=== PATIENT | male | born 1940 | race African-American/Black ===

== ENCOUNTER 2018-06-04 13:43 | Inpatient (IN) | payer MEDICARE, MEDICAID ==
[~2018-06-04] VITALS: Ht 180.3 cm; Wt 64.9 kg
[2018-06-04 13:33] VITALS: BP 149/88
[2018-06-04 15:00] VITALS: BP 134/87
[2018-06-04 15:20] LABS: APPEARANCE,URINE SLIGHTLY CLOUDY; BILIRUBIN, URINE NEGATIVE (NEGATIVE); COLOR,URINE PALE YELLOW; GLUCOSE, URINE (UA) 1+ (NEGATIVE); KETONES,URINE 4+ (NEGATIVE); LEUKOCYTE ESTERASE ,URINE NEGATIVE (NEGATIVE); NITRITE,URINE NEGATIVE (NEGATIVE); PH,URINE 7 (4.5-8.0); PROTEIN,URINE 3+ (NEGATIVE); UROBILINOGEN,URINE NORMAL MG/DL (0.0-1.0)
[2018-06-04 15:28] LABS: HEMATOCRIT 44.1 % (42.0-52.0); MEAN CORPUSCULAR VOLUME 83 FL (80-99); PLATELET COUNT 331 K/UL (150-450); RED BLOOD COUNT 5.34 M/UL (4.70-6.10); RED CELL DISTRIBUTION WIDTH 20.9 % (11.6-14.8); WHITE BLOOD COUNT 14.4 K/UL (4.8-10.8)
[2018-06-04 15:29] LABS: ANION GAP 14 mmol/L (5-15); BLOOD UREA NITROGEN 16 mg/dL (7-18); CALCIUM 11.3 MG/DL (8.5-10.1); CARBON DIOXIDE 23 MMOL/L (21-32); CHLORIDE 98 MMOL/L (98-107); CREATININE 0.8 MG/DL (0.55-1.30); POTASSIUM 3.4 MMOL/L (3.5-5.1); SODIUM 135 MMOL/L (136-145)
[2018-06-04 15:58] LABS: ALANINE AMINOTRANSFERASE 19 U/L (12-78); ALBUMIN 2.5 G/DL (3.4-5.0); ALBUMIN/GLOBULIN RATIO 0.5 (1.0-2.7); ALKALINE PHOSPHATASE 118 U/L (46-116); ASPARTATE AMINO TRANSFERASE 20 U/L (15-37); BILIRUBIN,TOTAL 0.8 MG/DL (0.2-1.0); CKMB 1.3 NG/ML (0.0-3.6); CREATINE KINASE 49 U/L (26-308)
[2018-06-04] MEDS ORDERED: Piperacillin/Tazobactam 3.375 GM in NS 110 ML IVPB ONE (16:00)
--- NOTE | 2018-06-04 16:02 | Diagnostic Imaging Report ---
EXAM: XR Chest, 1 View CLINICAL HISTORY: CP TECHNIQUE: Frontal view of the chest. COMPARISON: No relevant prior studies available. FINDINGS: Lungs: Hyperinflated lungs, COPD. Large 10.2 cm left upper central round mass with 7 cm more dense opacity superior aspect of this mass. Pleural space: Unremarkable. No pneumothorax. Heart: Unremarkable. No cardiomegaly. Mediastinum: Unremarkable. Bones/joints: Unremarkable. Tubes, lines and devices: Right chest port. Upper abdomen: Elevated left hemidiaphragm. IMPRESSION: 1. Large 10.2 cm left upper central round mass with 7 cm more dense opacity superior aspect of this mass. Consider CT if not already worked up. 2. Elevated left hemidiaphragm. 3. Hyperinflated lungs, COPD.
[2018-06-04] MEDS ORDERED: UNOBMED (16:34)
--- NOTE | 2018-06-04 16:43 | Emergency Room Report ---
History of Present Illness General Chief Complaint: Generalized Weakness Source: Patient, EMS Present Illness HPI 77-year-old male presents ED for evaluation. Brought in by EMS from home. Complaining of feeling weak, full episodes of diarrhea. Notes watery loose stools for many days now. Denies abdominal pain. Denies fevers or chills. States he has history of lung cancer and is getting treatment at [facility]. States his family member called 911 today. Denies recent antibiotic use. Denies chest pain or shortness of breath. No other aggravating relieving factors. Denies any other associated symptoms Allergies: Coded Allergies: No Known Allergies (Unverified , 06/04/18) Patient History Past Medical History: other - lung cancer Past Surgical History: none Pertinent Family History: none Social History: Denies: smoking, alcohol use, drug use Immunizations: UTD Reviewed Nursing Documentation: PMH: Agreed; PSxH: Agreed Nursing Documentation-PMH Past Medical History: No History, Except For Hx Hypertension: Yes Hx Diabetes: Yes Hx Cancer: Yes - Lung CA Review of Systems All Other Systems: negative except mentioned in HPI Physical Exam Vital Signs Date Time Temp Pulse Resp B/P (MAP) Pulse Ox O2 Delivery O2 Flow Rate FiO2 06/04/18 13:33 97.5 129 20 149/88 Room Air 97.5 06/04/18 13:34 99 Sp02 EP Interpretation: reviewed, normal General Appearance: alert, GCS 15, cachetic Head: normocephalic, atraumatic Eyes: bilateral eye normal inspection, bilateral eye PERRL ENT: hearing grossly normal, normal pharynx, no angioedema, normal voice Neck: full range of motion, supple/symm/no masses Respiratory: chest non-tender, lungs clear, normal breath sounds, speaking full sentences Cardiovascular #1: no edema, tachycardia Cardiovascular #2: 2+ carotid (R), 2+ carotid (L), 2+ radial (R), 2+ radial (L) , 2+ dorsalis pedis (R), 2+ dorsalis pedis (L) Gastrointestinal: normal bowel sounds, non tender, soft, non-distended, no guarding, no rebound Rectal: deferred Genitourinary: normal inspection, no CVA tenderness Musculoskeletal: back normal, gait/station normal, normal range of motion, non- tender Neurologic: alert, oriented x3, responsive, motor strength/tone normal, sensory intact, speech normal Psychiatric: judgement/insight normal, memory normal, mood/affect normal, no suicidal/homicidal ideation Reflexes: 3+ bicep (R), 3+ bicep (L), 3+ tricep (R), 3+ tricep (L), 3+ knee (R) , 3+ knee (L) Skin: normal color, no rash, warm/dry, well hydrated Lymphatic: no adenopathy Medical Decision Making Diagnostic Impression: Primary Impression: Episode of generalized weakness Additional Impressions: Colitis UTI (urinary tract infection) Qualified Codes: N39.0 - Urinary tract infection, site not specified H/O: lung cancer ER Course Hospital Course 77 yo M presents with weakness, vomiting and diarrhea Clinical course differential - dehydration, colitis, sepsis After initial history and physical I ordered labs, IV fluids, EKG, chest x-ray Labs - leukocytosis noted, Hb/Hct stable. electrolytes ok. lactate 2, UA + bacteria CXR - L upper lung mass (already diagnosed with lung cancer) EKGsinus tachycardia, no acute ischemic changes interpreted by me Tachycardia slowly improving with IV hydration. Antibiotics given. Case discussed with Dr. Cardona and he agreed to accept the patient to his service for further care and support I feel this is a highly complex case requiring extensive working including EKG/ Rhythm strip, Xray/CT/US, Blood/urine lab work, repeat exams while in ED, and administration of strong opiates/narcotics for pain control, admission to hospital or close patient follow up. Diagnosis - episode of generalized weakness, colitis, UTI, h/o lung cancer Patient admitted to telemetry in serious condition Labs Test 06/04/18 14:30 White Blood Count 14.4 K/UL (4.8-10.8) Red Blood Count 5.34 M/UL (4.70-6.10) Hemoglobin 13.0 G/DL (14.2-18.0) Hematocrit 44.1 % (42.0-52.0) Mean Corpuscular Volume 83 FL (80-99) Mean Corpuscular Hemoglobin 24.4 PG (27.0-31.0) Mean Corpuscular Hemoglobin Concent 29.5 G/DL (32.0-36.0) Red Cell Distribution Width 20.9 % (11.6-14.8) Platelet Count 331 K/UL (150-450) Mean Platelet Volume 5.3 FL (6.5-10.1) Neutrophils (%) (Auto) % (45.0-75.0) Lymphocytes (%) (Auto) % (20.0-45.0) Monocytes (%) (Auto) % (1.0-10.0) Eosinophils (%) (Auto) % (0.0-3.0) Basophils (%) (Auto) % (0.0-2.0) Differential Total Cells Counted 100 Neutrophils % (Manual) 84 % (45-75) Lymphocytes % (Manual) 9 % (20-45) Monocytes % (Manual) 7 % (1-10) Eosinophils % (Manual) 0 % (0-3) Basophils % (Manual) 0 % (0-2) Band Neutrophils 0 % (0-8) Platelet Estimate Adequate Platelet Morphology Normal Red Blood Cell Morphology Normal Urine Color Pale yellow Urine Appearance Slightly cloudy Urine pH 7 (4.5-8.0) Urine Specific [place] 1.015 (1.005-1.035) Urine Protein 3+ (NEGATIVE) Urine Glucose (UA) 1+ (NEGATIVE) Urine Ketones 4+ (NEGATIVE) Urine Blood 4+ (NEGATIVE) Urine Nitrite Negative (NEGATIVE) Urine Bilirubin Negative (NEGATIVE) Urine Urobilinogen Normal MG/DL (0.0-1.0) Urine Leukocyte Esterase Negative (NEGATIVE) Urine RBC 10-15 /HPF (0 - 0) Urine WBC 2-4 /HPF (0 - 0) Urine Squamous Epithelial Cells Few /LPF (NONE/OCC) Urine Bacteria Many /HPF (NONE) Sodium Level 135 MMOL/L (136-145) Potassium Level 3.4 MMOL/L (3.5-5.1) Chloride Level 98 MMOL/L (98-107) Carbon Dioxide Level 23 MMOL/L (21-32) Anion Gap 14 mmol/L (5-15) Blood Urea Nitrogen 16 mg/dL (7-18) Creatinine 0.8 MG/DL (0.55-1.30) Estimat Glomerular Filtration Rate mL/min (>60) Glucose Level 119 MG/DL (74-106) Lactic Acid Level 2.00 mmol/L (0.4-2.0) Calcium Level 11.3 MG/DL (8.5-10.1) Total Bilirubin 0.8 MG/DL (0.2-1.0) Aspartate Amino Transf (AST/SGOT) 20 U/L (15-37) Alanine Aminotransferase (ALT/SGPT) 19 U/L (12-78) Alkaline Phosphatase 118 U/L (46-116) Total Creatine Kinase 49 U/L (26-308) Creatine Kinase MB 1.3 NG/ML (0.0-3.6) Creatine Kinase MB Relative Index 2.6 Troponin I 0.000 ng/mL (0.000-0.056) Pro-B-Type Natriuretic Peptide 692 pg/mL (0-125) Total Protein 7.5 G/DL (6.4-8.2) Albumin 2.5 G/DL (3.4-5.0) Globulin 5.0 g/dL Albumin/Globulin Ratio 0.5 (1.0-2.7) Lipase 108 U/L (73-393) EKG Diagnostic Results Rate: tachycardiac Rhythm: NSR ST Segments: no acute changes ASA given to the pt in ED: No Rhythm Strip Diag. Results EP Interpretation: yes Rhythm: NSR, no PVC's, no ectopy Chest X-Ray Diagnostic Results Chest X-Ray Diagnostic Results : Chest X-Ray Ordered: Yes # of Views/Limited/Complete: 1 View Indication: Other - weakness EP Interpretation: Yes Interpretation: no pneumothorax, other - large left upper lung mass Impression: Other - lung cancer Electronically Signed by: Electronically signed by Bello Brothers MD Last Vital Signs Date Time Temp Pulse Resp B/P (MAP) Pulse Ox O2 Delivery O2 Flow Rate FiO2 06/04/18 13:34 97.3 129 20 127/77 99 Room Air 97.3 Status: improved Disposition: ADMITTED INPATIENT Condition: Serious Referrals: NOT CHOSEN IPA/,REFERRING (PCP) Bello Brothers MD Jun 04, 2018 16:43
[2018-06-04] MEDS ORDERED: D5W w/KCl 20mEq 1,000 ML IV SCH (17:00)
[2018-06-04] MEDS ORDERED: Zolpidem 5mg tab ORAL PRN (17:00)
[2018-06-04] MEDS: Morphine Sulfate 2mg/ml Inj IVP PRN ×2 (18:11→22:06)
--- NOTE | 2018-06-04 18:23 | History & Physical ---
History and Physical History & Physicial HP dictated # [id number] Ronen Cardona MD Jun 04, 2018 18:23
[2018-06-04] MEDS: D5 1/2NS w/KCl 20mEq 1,000 ML IV SCH (18:55)
--- NOTE | 2018-06-04 19:15 | History and Physical Report ---
DATE OF ADMISSION: 06/04/2018 CHIEF COMPLAINT: Feeling weak and episodes of diarrhea. HISTORY OF PRESENT ILLNESS: This is a 77-year-old male. Apparently, he was diagnosed with lung cancer about 5 years ago. The patient states that he is still getting chemotherapy. He states that his last chemotherapy was on Wednesday in the office of the doctor he does not know the name. The patient started having some diarrhea and then today he was feeling very weak and the family member called 911. The patient was brought into the emergency room and was admitted. PAST MEDICAL HISTORY: History of lung cancer as mentioned. He has reported history of diabetes and hypertension. MEDICATIONS: Reviewed in the EMR. SOCIAL HISTORY: The patient stated that he has not been smoking for the past 5 years. He denies history of alcohol abuse. He lives at home. ALLERGIES: No known drug allergies. REVIEW OF SYSTEMS: Noncontributory except above. PHYSICAL EXAMINATION: GENERAL: The patient is an elderly male, in no acute distress. Looks cachectic. VITAL SIGNS: Blood pressure 149/88, pulse 129, respiratory rate 20, and temperature 97.5. HEENT: Pale conjunctivae. Anicteric sclerae. NECK: Supple. LUNGS: Clear to auscultation. HEART: S1 and S2 without murmurs or rubs. ABDOMEN: Soft. Somewhat tender in the epigastric area. EXTREMITIES: No cyanosis or edema. LABORATORY FINDINGS: The CBC shows a WBC of 14,400, hematocrit is 44.1, hemoglobin is 13, and platelets 231,000. The chemistry panel shows serum sodium 135, potassium 3.4, chloride 98, CO2 23, BUN 16, creatinine 0.8, blood sugar is 119, and calcium is 11.3. UA shows 10 to 15 RBCs per high-power field, many bacteria, 2+ protein. ASSESSMENT: This is a 77-year-old male, who was admitted with weakness. He has significant hypercalcemia, which is likely related to his malignancy. He has also some diarrhea, which may be infectious, which could be related to his chemotherapy treatment. He does have leukocytosis. His UA is not impressive for urinary tract infection; however, the patient may have underlying pneumonia as well. PLAN: The patient will be on antibiotics, IV fluids. Serum calcium will be followed closely and if it does not go up with IV fluid, then I would give him a dose of pamidronate. GI consultation was obtained. The patient will be on liquid diet for now. His tachycardia is likely related to volume depletion and will be followed closely. Ronen Cardona M.D. DR: KARO JOB#: [id number] CC:
[2018-06-04 20:00] VITALS: BP 140/84
[2018-06-04] MEDS: metroNIDAZOLE 500mg tab ORAL SCH (22:01)
[2018-06-04] MEDS: Heparin 5000 units/ml inj SUBQ SCH (22:03)
[2018-06-05] VITALS: BP 137/80
[2018-06-05] MEDS: Morphine Sulfate 2mg/ml Inj IVP PRN ×4 (01:07→20:14)
[2018-06-05] MEDS: D5 1/2NS w/KCl 20mEq 1,000 ML IV SCH ×3 (02:49→23:19)
[2018-06-05 04:00] VITALS: BP 145/88
[2018-06-05] MEDS: metroNIDAZOLE 500mg tab ORAL SCH ×3 (05:36→21:09)
[2018-06-05] MEDS: Heparin 5000 units/ml inj SUBQ SCH ×2 (07:46→20:13)
[2018-06-05 08:00] VITALS: BP 143/99
[2018-06-05 12:00] VITALS: BP 144/84
--- NOTE | 2018-06-05 12:06 | General Progress Note ---
Assessment/Plan Problem List: (1) Episode of generalized weakness ICD Codes: R53.1 - Weakness SNOMED: 62032747 (2) Colitis ICD Codes: K52.9 - Noninfective gastroenteritis and colitis, unspecified SNOMED: 69205857 (3) Bacteremia ICD Codes: R78.81 - Bacteremia SNOMED: 1100572 (4) Hypercalcemia ICD Codes: E83.52 - Hypercalcemia SNOMED: 27718303 Assessment/Plan IVF follow labs Abxs ID consult Subjective Allergies: Coded Allergies: No Known Allergies (Unverified , 06/04/18) Subjective C/O abd pain Objective Last 24 Hour Vital Signs Date Time Temp Pulse Resp B/P (MAP) Pulse Ox O2 Delivery O2 Flow Rate FiO2 06/05/18 11:34 97.6 06/05/18 09:19 Room Air 06/05/18 08:00 97.6 126 20 143/99 (114) 100 97.6 06/05/18 08:00 116 06/05/18 04:00 121 06/05/18 04:00 98.3 126 20 145/88 (107) 100 98.3 06/05/18 00:00 108 06/05/18 00:00 97.3 118 22 137/80 (99) 100 97.3 06/04/18 21:00 Room Air 06/04/18 20:00 125 06/04/18 20:00 98.2 125 18 140/84 (102) 100 98.2 06/04/18 18:41 97.3 06/04/18 18:11 97.3 06/04/18 17:34 Room Air 06/04/18 16:50 97.3 120 20 134/87 99 Room Air 97.3 06/04/18 15:00 97.3 120 20 134/87 99 Room Air 97.3 06/04/18 13:34 97.3 129 20 127/77 99 Room Air 97.3 06/04/18 13:33 97.5 129 20 149/88 Room Air 97.5 Intake and Output 06/04/18 06/05/18 19:00 07:00 Intake Total 8 ml 1100 ml Output Total 202 ml Balance 8 ml 898 ml Intake Oral 0 ml 200 ml IV Total 8 ml 900 ml Output Urine Total 200 ml Stool Total 2 ml Laboratory Tests 06/04/18 14:30: White Blood Count 14.4H, Red Blood Count 5.34, Hemoglobin 13.0L, Hematocrit 44.1 , Mean Corpuscular Volume 83, Mean Corpuscular Hemoglobin 24.4L, Mean Corpuscular Hemoglobin Concent 29.5L, Red Cell Distribution Width 20.9H, Platelet Count 331, Mean Platelet Volume 5.3L, Neutrophils (%) (Auto) , Lymphocytes (%) (Auto) , Monocytes (%) (Auto) , Eosinophils (%) (Auto) , Basophils (%) (Auto) , Differential Total Cells Counted 100, Neutrophils % ( Manual) 84H, Lymphocytes % (Manual) 9L, Monocytes % (Manual) 7, Eosinophils % ( Manual) 0, Basophils % (Manual) 0, Band Neutrophils 0, Platelet Estimate Adequate, Platelet Morphology Normal, Red Blood Cell Morphology Normal, Urine Color Pale yellow, Urine Appearance Slightly cloudy, Urine pH 7, Urine Specific [place] 1.015, Urine Protein 3+H, Urine Glucose (UA) 1+H, Urine Ketones 4+H, Urine Blood 4+H, Urine Nitrite Negative, Urine Bilirubin Negative, Urine Urobilinogen Normal, Urine Leukocyte Esterase Negative, Urine RBC 10-15H, Urine WBC 2-4, Urine Squamous Epithelial Cells Few, Urine Bacteria ManyH, Sodium Level 135L, Potassium Level 3.4L, Chloride Level 98, Carbon Dioxide Level 23, Anion Gap 14, Blood Urea Nitrogen 16, Creatinine 0.8, Estimat Glomerular Filtration Rate , Glucose Level 119H, Lactic Acid Level 2.00, Calcium Level 11.3H, Total Bilirubin 0.8, Aspartate Amino Transf (AST/SGOT) 20, Alanine Aminotransferase (ALT/SGPT) 19, Alkaline Phosphatase 118H, Total Creatine Kinase 49, Creatine Kinase MB 1.3, Creatine Kinase MB Relative Index 2.6, Troponin I 0.000, Pro-B-Type Natriuretic Peptide 692H, Total Protein 7.5, Albumin 2.5L, Globulin 5.0, Albumin/Globulin Ratio 0.5L, Lipase 108 06/04/18 16:30: Lactic Acid Level 1.70 Height (Feet): 6 Height (Inches): 0.00 Weight (Pounds): 130 Cardiovascular: normal rate Respiratory/Chest: lungs clear Abdomen: soft, tender Edema: no edema noted Ronen Collazo MD Jun 05, 2018 12:06
[2018-06-05] MEDS ORDERED: Vancomycin 1.5 GM/D5W 250ML IVPB ONE (13:00)
--- NOTE | 2018-06-05 13:14 | General Progress Note ---
Assessment/Plan Assessment/Plan Assessment - Diarrhea - dehydration - h/o lung CA, on chemo Recommendations - IVF - push PO - check C Diff - Check stool culture Thank you Alexis Baum MD Subjective Allergies: Coded Allergies: No Known Allergies (Unverified , 06/04/18) Objective Last 24 Hour Vital Signs Date Time Temp Pulse Resp B/P (MAP) Pulse Ox O2 Delivery O2 Flow Rate FiO2 06/05/18 12:04 97.6 06/05/18 12:00 97.3 98 19 144/84 (104) 100 97.3 06/05/18 11:34 97.6 06/05/18 09:19 Room Air 06/05/18 08:00 97.6 126 20 143/99 (114) 100 97.6 06/05/18 08:00 116 06/05/18 04:00 121 06/05/18 04:00 98.3 126 20 145/88 (107) 100 98.3 06/05/18 00:00 108 06/05/18 00:00 97.3 118 22 137/80 (99) 100 97.3 06/04/18 21:00 Room Air 06/04/18 20:00 125 06/04/18 20:00 98.2 125 18 140/84 (102) 100 98.2 06/04/18 18:11 97.3 06/04/18 17:34 Room Air 06/04/18 16:50 97.3 120 20 134/87 99 Room Air 97.3 06/04/18 15:00 97.3 120 20 134/87 99 Room Air 97.3 06/04/18 13:34 97.3 129 20 127/77 99 Room Air 97.3 06/04/18 13:33 97.5 129 20 149/88 Room Air 97.5 Intake and Output 06/04/18 06/05/18 19:00 07:00 Intake Total 8 ml 1100 ml Output Total 202 ml Balance 8 ml 898 ml Intake Oral 0 ml 200 ml IV Total 8 ml 900 ml Output Urine Total 200 ml Stool Total 2 ml Laboratory Tests 06/04/18 14:30: White Blood Count 14.4H, Red Blood Count 5.34, Hemoglobin 13.0L, Hematocrit 44.1 , Mean Corpuscular Volume 83, Mean Corpuscular Hemoglobin 24.4L, Mean Corpuscular Hemoglobin Concent 29.5L, Red Cell Distribution Width 20.9H, Platelet Count 331, Mean Platelet Volume 5.3L, Neutrophils (%) (Auto) , Lymphocytes (%) (Auto) , Monocytes (%) (Auto) , Eosinophils (%) (Auto) , Basophils (%) (Auto) , Differential Total Cells Counted 100, Neutrophils % ( Manual) 84H, Lymphocytes % (Manual) 9L, Monocytes % (Manual) 7, Eosinophils % ( Manual) 0, Basophils % (Manual) 0, Band Neutrophils 0, Platelet Estimate Adequate, Platelet Morphology Normal, Red Blood Cell Morphology Normal, Urine Color Pale yellow, Urine Appearance Slightly cloudy, Urine pH 7, Urine Specific [place] 1.015, Urine Protein 3+H, Urine Glucose (UA) 1+H, Urine Ketones 4+H, Urine Blood 4+H, Urine Nitrite Negative, Urine Bilirubin Negative, Urine Urobilinogen Normal, Urine Leukocyte Esterase Negative, Urine RBC 10-15H, Urine WBC 2-4, Urine Squamous Epithelial Cells Few, Urine Bacteria ManyH, Sodium Level 135L, Potassium Level 3.4L, Chloride Level 98, Carbon Dioxide Level 23, Anion Gap 14, Blood Urea Nitrogen 16, Creatinine 0.8, Estimat Glomerular Filtration Rate , Glucose Level 119H, Lactic Acid Level 2.00, Calcium Level 11.3H, Total Bilirubin 0.8, Aspartate Amino Transf (AST/SGOT) 20, Alanine Aminotransferase (ALT/SGPT) 19, Alkaline Phosphatase 118H, Total Creatine Kinase 49, Creatine Kinase MB 1.3, Creatine Kinase MB Relative Index 2.6, Troponin I 0.000, Pro-B-Type Natriuretic Peptide 692H, Total Protein 7.5, Albumin 2.5L, Globulin 5.0, Albumin/Globulin Ratio 0.5L, Lipase 108 06/04/18 16:30: Lactic Acid Level 1.70 Height (Feet): 6 Height (Inches): 0.00 Weight (Pounds): 130 Suellen Baum MD Jun 05, 2018 13:14
[2018-06-05 16:00] VITALS: BP 139/79
[2018-06-05 20:00] VITALS: BP 127/84
--- NOTE | 2018-06-05 20:30 | Consultation ---
DATE OF CONSULTATION: 06/05/2018 INFECTIOUS DISEASE CONSULTATION CONSULTING PHYSICIAN: Doug Cardona M.D. PRIMARY ATTENDING PHYSICIAN: Ronen Cardona M.D. REASON FOR CONSULT: Positive blood culture, bacteremia. HISTORY OF PRESENT ILLNESS: This is a 77-year-old male admitted yesterday from home. He has history of 4 days of watery diarrhea, usually 5 times a day and weakness. He has history of lung cancer, on chemotherapy and has a port. He has some abdominal pain. PAST MEDICAL HISTORY: Significant for lung cancer for 5 years , and chemotherapy, last chemotherapy was last week. He has COPD. MEDICATIONS: Getting metronidazole, heparin, ciprofloxacin, morphine, Zofran, Ambien. SOCIAL HISTORY: Single, has no child. Lives with first cousin. Quit smoking 3 years ago. No drinking for 4 years. REVIEW OF SYSTEMS: No fever. No chills. Some nausea. No coughing. He has diarrhea as mentioned. No problem passing urine. PHYSICAL EXAMINATION: VITAL SIGNS: Temperature 97.6, pulse 126, blood pressure 143/99. GENERAL APPEARANCE: He seems to be thin and cachectic. HEAD AND NECK: No oral lesion. He has no teeth. HEART: S1 and S2. Regular. LUNGS: Clear. ABDOMEN: Soft. Mildly tender in the left side. EXTREMITIES: He has no edema. He has muscle atrophy. NEUROLOGIC: He is awake, alert, oriented. He has decreased hearing. LABORATORY AND DIAGNOSTIC DATA: WBC 14.4, hemoglobin 13, hematocrit 44.1, platelet 331,000. Sodium 135, potassium 3.4, chloride 98, bicarbonate 23, BUN 16, creatinine 0.8, and glucose is 119. IMPRESSION: Sepsis with leukocytosis and tachycardia. He has diarrhea. We will try to rule out infectious cause of diarrhea like C. difficile. The patient is immunocompromised and has bacteremia with gram-positive cocci. He has COPD in chest x-ray and lung mass in chest x-ray. He has Port-A-Cath and is in risk of line infection. RECOMMENDATION: We will continue Cipro and Flagyl. We will start on IV vancomycin. We will follow up the cultures. At the end of my exam, I thank Dr. Ronen Cardona for involving me in the care of this patient. Doug Cardona M.D. DR: Heath JOB#: [id number] CC: CRISTOFER
[2018-06-06] VITALS: BP 149/85
[2018-06-06] MEDS: Vancomycin 750mg/NS 250ml IVPB SCH ×3 (00:26→12:24)
--- NOTE | 2018-06-06 02:30 | Consultation ---
DATE OF CONSULTATION: 06/05/2018 GASTROENTEROLOGY CONSULTATION CONSULTING PHYSICIAN: Suellen Baum M.D. CHIEF COMPLAINT: I was asked to see this patient by Dr. Ronen Cardona for evaluation of diarrhea. HISTORY OF PRESENT ILLNESS: The patient is a pleasant 77-year-old man, who is a poor historian, who comes into the hospital due to three days of diarrhea. The patient states that he had a few bowel movements a day, which are loose. There is no pain or nausea or vomiting. He does have a history of lung cancer about four or five years ago and has been receiving chemotherapy. His last chemotherapy was earlier this week, but he cannot recall the details of his treatment. He came to the hospital because of diarrhea and weakness. He has not had a colonoscopy for at least five years. PAST MEDICAL HISTORY: History of lung cancer, diabetes, and hypertension. FAMILY HISTORY: Noncontributory. SOCIAL HISTORY: The patient has not smoked for about five years. He denies alcohol use. He lives at home. ALLERGIES: None. REVIEW OF SYSTEMS: Otherwise negative. PHYSICAL EXAMINATION: GENERAL: A pleasant man, seen in his room. HEENT: Normocephalic and atraumatic. Sclerae are anicteric. Oropharynx is clear. NECK: Supple. Clear to auscultation. CARDIOVASCULAR: Revealed a regular rate. ABDOMEN: Soft. EXTREMITIES: Revealed no edema. LABORATORY DATA: Laboratory data was noted. ASSESSMENT: This patient presents with flare of diarrhea for several days of unclear etiology. Since he is receiving chemotherapy, this would be a typical cause of this chemotherapy-induced diarrhea. Alternatively, he may have clostridium difficile or typical infections and other pathogens. I would check the patient's stool occult first while giving him hydration and nutrition. Should his symptoms persist and the cultures are negative, then he may require an endoscopic evaluation. RECOMMENDATIONS: Per above discussion and per orders written in the chart. Thank you for asking me to participate in the care of this patient. Suellen Baum M.D. DR: STELLA JOB#: [id number] CC: CRISTOFER
[2018-06-06 04:00] VITALS: BP 144/85
[2018-06-06] MEDS: metroNIDAZOLE 500mg tab ORAL SCH ×3 (05:51→21:21)
[2018-06-06 07:38] LABS: HEMATOCRIT 35.3 % (42.0-52.0); HEMOGLOBIN 11.3 G/DL (14.2-18.0); MEAN CORPUSCULAR VOLUME 81 FL (80-99); PLATELET COUNT 295 K/UL (150-450); RED BLOOD COUNT 4.36 M/UL (4.70-6.10); RED CELL DISTRIBUTION WIDTH 20.4 % (11.6-14.8); WHITE BLOOD COUNT 9.5 K/UL (4.8-10.8)
[2018-06-06 08:00] VITALS: BP 143/84
[2018-06-06 08:02] LABS: ANION GAP 8 mmol/L (5-15); BLOOD UREA NITROGEN 6 mg/dL (7-18); CALCIUM 10.1 MG/DL (8.5-10.1); CARBON DIOXIDE 28 MMOL/L (21-32); CHLORIDE 98 MMOL/L (98-107); CREATININE 0.6 MG/DL (0.55-1.30); SODIUM 134 MMOL/L (136-145)
[2018-06-06 08:09] LABS: POTASSIUM 2.4 MMOL/L (3.5-5.1)
[2018-06-06] MEDS: D5 1/2NS w/KCl 20mEq 1,000 ML IV SCH (08:17)
[2018-06-06] MEDS: Heparin 5000 units/ml inj SUBQ SCH ×3 (08:17→21:23)
[2018-06-06 12:00] VITALS: BP 146/91
--- NOTE | 2018-06-06 12:02 | General Progress Note ---
Assessment/Plan Problem List: (1) Episode of generalized weakness ICD Codes: R53.1 - Weakness SNOMED: 75164129 (2) Colitis ICD Codes: K52.9 - Noninfective gastroenteritis and colitis, unspecified SNOMED: 95219042 (3) Bacteremia ICD Codes: R78.81 - Bacteremia SNOMED: 4604155 (4) Hypercalcemia ICD Codes: E83.52 - Hypercalcemia SNOMED: 33064297 (5) Hypokalemia ICD Codes: E87.6 - Hypokalemia SNOMED: 99288003 Assessment/Plan Replete K IVF with K GI F/U follow labs Abxs Discussed with RN Subjective Allergies: Coded Allergies: No Known Allergies (Unverified , 06/04/18) Subjective C/O abd pain severe diarrhea Objective Last 24 Hour Vital Signs Date Time Temp Pulse Resp B/P (MAP) Pulse Ox O2 Delivery O2 Flow Rate FiO2 06/06/18 09:00 Room Air 06/06/18 08:00 98.9 108 20 143/84 (103) 96 98.9 06/06/18 04:00 98.0 111 18 144/85 (104) 96 98.0 06/06/18 04:00 107 06/06/18 00:00 107 06/06/18 00:00 97.9 108 18 149/85 (106) 98 97.9 06/05/18 20:00 112 06/05/18 20:00 98.7 118 20 127/84 (98) 98 98.7 06/05/18 19:51 Room Air 06/05/18 16:00 106 06/05/18 16:00 99.0 121 18 139/79 (99) 100 99.0 06/05/18 12:04 97.6 Intake and Output 06/05/18 06/06/18 19:00 07:00 Intake Total 820 ml 1460.000 ml Output Total 700 ml 900 ml Balance 120 ml 560.000 ml Intake Oral 720 ml 240 ml IV Total 100 ml 1220.000 ml Output Urine Total 700 ml 900 ml # Bowel Movements 3 2 Laboratory Tests 06/06/18 06:10: White Blood Count 9.5, Red Blood Count 4.36L, Hemoglobin 11.3L, Hematocrit 35.3L , Mean Corpuscular Volume 81, Mean Corpuscular Hemoglobin 25.8L, Mean Corpuscular Hemoglobin Concent 31.9L, Red Cell Distribution Width 20.4H, Platelet Count 295, Mean Platelet Volume 5.1L, Neutrophils (%) (Auto) , Lymphocytes (%) (Auto) , Monocytes (%) (Auto) , Eosinophils (%) (Auto) , Basophils (%) (Auto) , Differential Total Cells Counted 100, Neutrophils % ( Manual) 85H, Lymphocytes % (Manual) 8L, Monocytes % (Manual) 7, Eosinophils % ( Manual) 0, Basophils % (Manual) 0, Band Neutrophils 0, Platelet Estimate Adequate, Platelet Morphology Normal, Hypochromasia 1+, Anisocytosis 2+, Microcytosis 1+, Sodium Level 134L, Potassium Level 2.4*L, Chloride Level 98, Carbon Dioxide Level 28, Anion Gap 8, Blood Urea Nitrogen 6L, Creatinine 0.6, Estimat Glomerular Filtration Rate , Glucose Level 123H, Calcium Level 10.1 Height (Feet): 6 Height (Inches): 0.00 Weight (Pounds): 130 Cardiovascular: normal rate Respiratory/Chest: lungs clear Abdomen: tender Edema: no edema noted Generalized Ronen Cardona MD Jun 06, 2018 12:02
[2018-06-06] MEDS: D5 1/2NS w/KCl 40meq 1000ml 1,000 ML IV SCH ×2 (14:14→23:00)
[2018-06-06 16:18] VITALS: BP 130/78
--- NOTE | 2018-06-06 16:47 | Infectious Diseases Prog Note ---
Assessment/Plan Assessment/Plan A; Sepsis/SIRS Diarrhea Lung cancer Positive blood culture like contamination Cachexia Hypokalemia P; Continue Cipro & Flagyl Discontinue IV Vancomycin will f/u cultures Subjective ROS Limited/Unobtainable: Yes Constitutional: Reports: no symptoms Gastrointestinal/Abdominal: Reports: diarrhea Allergies: Coded Allergies: No Known Allergies (Unverified , 06/04/18) Objective Vital Signs Last 24 Hour Vital Signs Date Time Temp Pulse Resp B/P (MAP) Pulse Ox O2 Delivery O2 Flow Rate FiO2 06/06/18 16:18 98.6 115 20 130/78 (95) 96 98.6 06/06/18 16:00 114 06/06/18 12:00 110 06/06/18 12:00 98.6 108 17 146/91 (109) 96 98.6 06/06/18 09:00 Room Air 06/06/18 08:00 107 06/06/18 08:00 98.9 108 20 143/84 (103) 96 98.9 06/06/18 04:00 98.0 111 18 144/85 (104) 96 98.0 06/06/18 04:00 107 06/06/18 00:00 107 06/06/18 00:00 97.9 108 18 149/85 (106) 98 97.9 06/05/18 20:00 112 06/05/18 20:00 98.7 118 20 127/84 (98) 98 98.7 06/05/18 19:51 Room Air Height (Feet): 6 Height (Inches): 0.00 Weight (Pounds): 130 General Appearance: cachetic HEENT: mucous membranes moist Respiratory/Chest: lungs clear Cardiovascular: tachycardia, other - R chest Port Abdomen: soft, non tender Extremities: no edema Skin: no rash Neurologic/Psychiatric: alert, responsive Microbiology Date/Time Source Procedure Growth Status 06/04/18 14:30 Blood Blood Culture - Preliminary NO GROWTH AFTER 24 HOURS Resulted 06/04/18 14:30 Blood Blood Culture - Preliminary Staphylococcus Sp Coag Neg Resulted 06/04/18 14:15 Stool Stool Culture - Preliminary Resulted 06/04/18 14:15 Stool Clostridium difficile Toxin Assay - Final Resulted 06/04/18 14:30 Urine,Clean Catch Urine Culture - Preliminary Mixed Urogenital Contaminants Resulted Laboratory Tests Test 06/06/18 06:10 06/06/18 16:00 White Blood Count 9.5 K/UL (4.8-10.8) Red Blood Count 4.36 M/UL (4.70-6.10) L Hemoglobin 11.3 G/DL (14.2-18.0) L Hematocrit 35.3 % (42.0-52.0) L Mean Corpuscular Volume 81 FL (80-99) Mean Corpuscular Hemoglobin 25.8 PG (27.0-31.0) L Mean Corpuscular Hemoglobin Concent 31.9 G/DL (32.0-36.0) L Red Cell Distribution Width 20.4 % (11.6-14.8) H Platelet Count 295 K/UL (150-450) Mean Platelet Volume 5.1 FL (6.5-10.1) L Neutrophils (%) (Auto) % (45.0-75.0) Lymphocytes (%) (Auto) % (20.0-45.0) Monocytes (%) (Auto) % (1.0-10.0) Eosinophils (%) (Auto) % (0.0-3.0) Basophils (%) (Auto) % (0.0-2.0) Differential Total Cells Counted 100 Neutrophils % (Manual) 85 % (45-75) H Lymphocytes % (Manual) 8 % (20-45) L Monocytes % (Manual) 7 % (1-10) Eosinophils % (Manual) 0 % (0-3) Basophils % (Manual) 0 % (0-2) Band Neutrophils 0 % (0-8) Platelet Estimate Adequate Platelet Morphology Normal Hypochromasia 1+ Anisocytosis 2+ Microcytosis 1+ Sodium Level 134 MMOL/L (136-145) L Potassium Level 2.4 MMOL/L (3.5-5.1) *L Chloride Level 98 MMOL/L (98-107) Carbon Dioxide Level 28 MMOL/L (21-32) Anion Gap 8 mmol/L (5-15) Blood Urea Nitrogen 6 mg/dL (7-18) L Creatinine 0.6 MG/DL (0.55-1.30) Estimat Glomerular Filtration Rate mL/min (>60) Glucose Level 123 MG/DL (74-106) H Calcium Level 10.1 MG/DL (8.5-10.1) Stool Occult Blood Pending Current Medications Medications (Trade) Dose Ordered Sig/Matthieu Route PRN Reason Start Time Stop Time Status Last Admin Dose Admin Ciprofloxacin (Cipro 250mg tab) 250 mg EVERY 12 HOURS ORAL 06/04/18 21:00 06/11/18 20:59 06/06/18 08:15 Dextrose (Dextrose 50%) 25 ml Q30M PRN IV Hypoglycemia 06/04/18 17:00 07/04/18 16:59 Dextrose (Dextrose 50%) 50 ml Q30M PRN IV Hypoglycemia 06/04/18 17:00 07/04/18 16:59 Dextrose/ Electrolytes 1,000 ml @ 100 mls/hr Q10H IV 06/06/18 13:00 07/04/18 12:59 06/06/18 14:14 Heparin Sodium (Porcine) (Heparin 5000 units/ml) 5,000 units EVERY 12 HOURS SUBQ 06/04/18 21:00 07/04/18 20:59 06/05/18 20:13 Metronidazole (Flagyl) 500 mg Q8HR ORAL 06/04/18 22:00 06/11/18 21:59 06/06/18 14:14 Morphine Sulfate (Morphine Sulfate) 2 mg Q3H PRN IVP For moderate Pain 06/04/18 18:00 06/11/18 17:59 06/05/18 20:14 Ondansetron HCl (Zofran) 4 mg Q6H PRN IVP Nausea & Vomiting 06/04/18 17:00 07/04/18 16:59 06/05/18 01:06 Zolpidem Tartrate (Ambien) 5 mg DAILYPRN PRN ORAL Insomnia 06/04/18 17:00 06/11/18 16:59 Doug Cardona MD Jun 06, 2018 16:47
[2018-06-06 20:00] VITALS: BP 134/80
[2018-06-06] MEDS: Morphine Sulfate 2mg/ml Inj IVP PRN (21:34)
--- NOTE | 2018-06-06 22:28 | General Progress Note ---
Assessment/Plan Assessment/Plan Assessment - Diarrhea - ? chemo induced - dehydration - h/o lung CA, on chemo Recommendations - IVF - push PO - continue cipro and flagyl - Check stool culture - correct electrolytes Subjective Allergies: Coded Allergies: No Known Allergies (Unverified , 06/04/18) Subjective Feels same still with multiple loose BM C Diff (-) no abd pain Objective Last 24 Hour Vital Signs Date Time Temp Pulse Resp B/P (MAP) Pulse Ox O2 Delivery O2 Flow Rate FiO2 06/06/18 20:00 120 06/06/18 16:18 98.6 115 20 130/78 (95) 96 98.6 06/06/18 16:00 114 06/06/18 12:00 110 06/06/18 12:00 98.6 108 17 146/91 (109) 96 98.6 06/06/18 09:00 Room Air 06/06/18 08:00 107 06/06/18 08:00 98.9 108 20 143/84 (103) 96 98.9 06/06/18 04:00 98.0 111 18 144/85 (104) 96 98.0 06/06/18 04:00 107 06/06/18 00:00 107 06/06/18 00:00 97.9 108 18 149/85 (106) 98 97.9 Intake and Output 06/05/18 06/06/18 18:59 06:59 Intake Total 720 ml 1460.000 ml Output Total 700 ml 900 ml Balance 20 ml 560.000 ml Intake Oral 720 ml 240 ml IV Total 1220.000 ml Output Urine Total 700 ml 900 ml # Bowel Movements 3 2 Laboratory Tests 06/06/18 06:10: White Blood Count 9.5, Red Blood Count 4.36L, Hemoglobin 11.3L, Hematocrit 35.3L , Mean Corpuscular Volume 81, Mean Corpuscular Hemoglobin 25.8L, Mean Corpuscular Hemoglobin Concent 31.9L, Red Cell Distribution Width 20.4H, Platelet Count 295, Mean Platelet Volume 5.1L, Neutrophils (%) (Auto) , Lymphocytes (%) (Auto) , Monocytes (%) (Auto) , Eosinophils (%) (Auto) , Basophils (%) (Auto) , Differential Total Cells Counted 100, Neutrophils % ( Manual) 85H, Lymphocytes % (Manual) 8L, Monocytes % (Manual) 7, Eosinophils % ( Manual) 0, Basophils % (Manual) 0, Band Neutrophils 0, Platelet Estimate Adequate, Platelet Morphology Normal, Hypochromasia 1+, Anisocytosis 2+, Microcytosis 1+, Sodium Level 134L, Potassium Level 2.4*L, Chloride Level 98, Carbon Dioxide Level 28, Anion Gap 8, Blood Urea Nitrogen 6L, Creatinine 0.6, Estimat Glomerular Filtration Rate , Glucose Level 123H, Calcium Level 10.1 06/06/18 16:00: Stool Occult Blood [Pending] Height (Feet): 6 Height (Inches): 0.00 Weight (Pounds): 130 Objective Thin AA man NCAT Supple CTA RRR abd soft no edema Suellen Baum MD Jun 06, 2018 22:28
[2018-06-07] VITALS: BP 131/76
[2018-06-07 04:00] VITALS: BP 131/75
[2018-06-07] MEDS: Morphine Sulfate 2mg/ml Inj IVP PRN ×2 (05:59→23:03)
[2018-06-07] MEDS: metroNIDAZOLE 500mg tab ORAL SCH ×3 (06:00→23:02)
[2018-06-07 07:06] LABS: EOSINOPHILS % (AUTO) 0.3 % (0.0-3.0); HEMOGLOBIN 11.7 G/DL (14.2-18.0); LYMPHOCYTES % (AUTO) 9.7 % (20.0-45.0); MEAN CORPUSCULAR VOLUME 81 FL (80-99); MONOCYTES % (AUTO) 7.2 % (1.0-10.0); NEUTROPHILS % (AUTO) 81.7 % (45.0-75.0); PLATELET COUNT 299 K/UL (150-450); RED BLOOD COUNT 4.45 M/UL (4.70-6.10); RED CELL DISTRIBUTION WIDTH 19.8 % (11.6-14.8); WHITE BLOOD COUNT 8.9 K/UL (4.8-10.8)
[2018-06-07 07:17] LABS: ANION GAP 7 mmol/L (5-15); BLOOD UREA NITROGEN 4 mg/dL (7-18); CALCIUM 10.7 MG/DL (8.5-10.1); CARBON DIOXIDE 29 MMOL/L (21-32); CHLORIDE 94 MMOL/L (98-107); CREATININE 0.6 MG/DL (0.55-1.30); SODIUM 131 MMOL/L (136-145)
[2018-06-07 07:20] LABS: POTASSIUM 2.7 MMOL/L (3.5-5.1)
[2018-06-07 08:00] VITALS: BP 135/81
[2018-06-07] MEDS: Heparin 5000 units/ml inj SUBQ SCH ×2 (09:00→21:00)
[2018-06-07] MEDS: D5 1/2NS w/KCl 40meq 1000ml 1,000 ML IV SCH ×2 (09:05→18:51)
--- NOTE | 2018-06-07 11:41 | Infectious Diseases Prog Note ---
Assessment/Plan Assessment/Plan A; Sepsis/SIRS Diarrhea Lung cancer Positive blood culture like contamination Cachexia Hypokalemia P; Continue Cipro & Flagyl cultures are negative. Subjective ROS Limited/Unobtainable: Yes Constitutional: Reports: other - doing better Gastrointestinal/Abdominal: Reports: diarrhea, other - decreased Allergies: Coded Allergies: No Known Allergies (Unverified , 06/04/18) Objective Vital Signs Last 24 Hour Vital Signs Date Time Temp Pulse Resp B/P (MAP) Pulse Ox O2 Delivery O2 Flow Rate FiO2 06/07/18 09:00 Room Air 06/07/18 08:00 97.4 112 20 135/81 (99) 98 97.4 06/07/18 08:00 118 06/07/18 04:00 98.8 72 20 131/75 (93) 94 98.8 06/07/18 04:00 106 06/07/18 00:00 98 06/07/18 00:00 98.7 98 17 131/76 (94) 96 98.7 06/06/18 21:00 Room Air 06/06/18 20:00 120 06/06/18 20:00 98.9 120 18 134/80 (98) 98 98.9 06/06/18 16:18 98.6 115 20 130/78 (95) 96 98.6 06/06/18 16:00 114 06/06/18 12:00 110 06/06/18 12:00 98.6 108 17 146/91 (109) 96 98.6 Height (Feet): 6 Height (Inches): 0.00 Weight (Pounds): 130 General Appearance: cachetic HEENT: mucous membranes moist Respiratory/Chest: lungs clear Cardiovascular: tachycardia, other - Port Abdomen: distended Extremities: no edema Neurologic/Psychiatric: alert, responsive Microbiology Date/Time Source Procedure Growth Status 06/04/18 14:30 Blood Blood Culture - Preliminary NO GROWTH AFTER 48 HOURS Resulted 06/04/18 14:30 Blood Blood Culture - Final Staphylococcus Sp Coag Neg Complete 06/04/18 14:15 Stool Stool Culture - Preliminary NORMAL FECAL VI. Resulted 06/04/18 14:15 Stool Clostridium difficile Toxin Assay - Final Resulted 06/04/18 14:30 Urine,Clean Catch Urine Culture - Final Mixed Urogenital Contaminants Complete Laboratory Tests Test 06/06/18 16:00 06/07/18 05:45 Stool Occult Blood Positive (NEGATIVE) White Blood Count 8.9 K/UL (4.8-10.8) Red Blood Count 4.45 M/UL (4.70-6.10) L Hemoglobin 11.7 G/DL (14.2-18.0) L Hematocrit 36.0 % (42.0-52.0) L Mean Corpuscular Volume 81 FL (80-99) Mean Corpuscular Hemoglobin 26.3 PG (27.0-31.0) L Mean Corpuscular Hemoglobin Concent 32.5 G/DL (32.0-36.0) Red Cell Distribution Width 19.8 % (11.6-14.8) H Platelet Count 299 K/UL (150-450) Mean Platelet Volume 6.2 FL (6.5-10.1) L Neutrophils (%) (Auto) 81.7 % (45.0-75.0) H Lymphocytes (%) (Auto) 9.7 % (20.0-45.0) L Monocytes (%) (Auto) 7.2 % (1.0-10.0) Eosinophils (%) (Auto) 0.3 % (0.0-3.0) Basophils (%) (Auto) 1.0 % (0.0-2.0) Sodium Level 131 MMOL/L (136-145) L Potassium Level 2.7 MMOL/L (3.5-5.1) *L Chloride Level 94 MMOL/L (98-107) L Carbon Dioxide Level 29 MMOL/L (21-32) Anion Gap 7 mmol/L (5-15) Blood Urea Nitrogen 4 mg/dL (7-18) L Creatinine 0.6 MG/DL (0.55-1.30) Estimat Glomerular Filtration Rate mL/min (>60) Glucose Level 118 MG/DL (74-106) H Calcium Level 10.7 MG/DL (8.5-10.1) H Current Medications Medications (Trade) Dose Ordered Sig/Matthieu Route PRN Reason Start Time Stop Time Status Last Admin Dose Admin Ciprofloxacin (Cipro 250mg tab) 250 mg EVERY 12 HOURS ORAL 06/04/18 21:00 06/11/18 20:59 06/07/18 09:05 Dextrose (Dextrose 50%) 25 ml Q30M PRN IV Hypoglycemia 06/04/18 17:00 07/04/18 16:59 Dextrose (Dextrose 50%) 50 ml Q30M PRN IV Hypoglycemia 06/04/18 17:00 07/04/18 16:59 Dextrose/ Electrolytes 1,000 ml @ 100 mls/hr Q10H IV 06/06/18 13:00 07/04/18 12:59 06/07/18 09:05 Heparin Sodium (Porcine) (Heparin 5000 units/ml) 5,000 units EVERY 12 HOURS SUBQ 06/04/18 21:00 07/04/18 20:59 06/06/18 21:23 Metronidazole (Flagyl) 500 mg Q8HR ORAL 06/04/18 22:00 06/11/18 21:59 06/07/18 06:00 Morphine Sulfate (Morphine Sulfate) 2 mg Q3H PRN IVP For moderate Pain 06/04/18 18:00 06/11/18 17:59 06/07/18 05:59 Ondansetron HCl (Zofran) 4 mg Q6H PRN IVP Nausea & Vomiting 06/04/18 17:00 07/04/18 16:59 06/05/18 01:06 Zolpidem Tartrate (Ambien) 5 mg DAILYPRN PRN ORAL Insomnia 06/04/18 17:00 06/11/18 16:59 Doug Cardona MD Jun 07, 2018 11:40
[2018-06-07 12:00] VITALS: BP 140/81
--- NOTE | 2018-06-07 14:30 | General Progress Note ---
Assessment/Plan Problem List: (1) Episode of generalized weakness ICD Codes: R53.1 - Weakness SNOMED: 81319930 (2) Colitis ICD Codes: K52.9 - Noninfective gastroenteritis and colitis, unspecified SNOMED: 29927403 (3) Bacteremia ICD Codes: R78.81 - Bacteremia SNOMED: 4225836 (4) Hypercalcemia ICD Codes: E83.52 - Hypercalcemia SNOMED: 31783360 (5) Hypokalemia ICD Codes: E87.6 - Hypokalemia SNOMED: 67339674 Assessment/Plan Replete K IVF with K GI F/U follow labs Abxs Discussed with RN Subjective Allergies: Coded Allergies: No Known Allergies (Unverified , 06/04/18) Subjective diarrhea better Objective Last 24 Hour Vital Signs Date Time Temp Pulse Resp B/P (MAP) Pulse Ox O2 Delivery O2 Flow Rate FiO2 06/07/18 12:00 99.1 115 21 140/81 (100) 97 99.1 06/07/18 09:00 Room Air 06/07/18 08:00 97.4 112 20 135/81 (99) 98 97.4 06/07/18 08:00 118 06/07/18 04:00 98.8 72 20 131/75 (93) 94 98.8 06/07/18 04:00 106 06/07/18 00:00 98 06/07/18 00:00 98.7 98 17 131/76 (94) 96 98.7 06/06/18 21:00 Room Air 06/06/18 20:00 120 06/06/18 20:00 98.9 120 18 134/80 (98) 98 98.9 06/06/18 16:18 98.6 115 20 130/78 (95) 96 98.6 06/06/18 16:00 114 Intake and Output 06/06/18 06/07/18 19:00 07:00 Intake Total 1100 ml 740 ml Output Total 1600 ml 1000 ml Balance -500 ml -260 ml Intake Oral 600 ml 240 ml IV Total 500 ml 500 ml Output Urine Total 1600 ml 1000 ml # Bowel Movements 3 Laboratory Tests 06/06/18 16:00: Stool Occult Blood Positive 06/07/18 05:45: White Blood Count 8.9, Red Blood Count 4.45L, Hemoglobin 11.7L, Hematocrit 36.0L , Mean Corpuscular Volume 81, Mean Corpuscular Hemoglobin 26.3L, Mean Corpuscular Hemoglobin Concent 32.5, Red Cell Distribution Width 19.8H, Platelet Count 299, Mean Platelet Volume 6.2L, Neutrophils (%) (Auto) 81.7H, Lymphocytes (%) (Auto) 9.7L, Monocytes (%) (Auto) 7.2, Eosinophils (%) (Auto) 0.3, Basophils (%) (Auto) 1.0, Sodium Level 131L, Potassium Level 2.7*L, Chloride Level 94L, Carbon Dioxide Level 29, Anion Gap 7, Blood Urea Nitrogen 4L , Creatinine 0.6, Estimat Glomerular Filtration Rate , Glucose Level 118H, Calcium Level 10.7H Height (Feet): 6 Height (Inches): 0.00 Weight (Pounds): 130 Cardiovascular: normal rate Respiratory/Chest: lungs clear Edema: no edema noted Generalized Ronen Cardona MD Jun 07, 2018 14:30
[2018-06-07 15:57] VITALS: BP 110/74
--- NOTE | 2018-06-07 15:58 | General Progress Note ---
Assessment/Plan Assessment/Plan Assessment - Diarrhea - improved - dehydration - h/o lung CA, on chemo Recommendations - IVF - push PO - continue cipro and flagyl - Check swallow study - correct electrolytes Subjective Allergies: Coded Allergies: No Known Allergies (Unverified , 06/04/18) Subjective Feels same d/w RN no diarrhea overnight per RN RD noted Objective Last 24 Hour Vital Signs Date Time Temp Pulse Resp B/P (MAP) Pulse Ox O2 Delivery O2 Flow Rate FiO2 06/07/18 12:00 124 06/07/18 12:00 99.1 115 21 140/81 (100) 97 99.1 06/07/18 09:00 Room Air 06/07/18 08:00 97.4 112 20 135/81 (99) 98 97.4 06/07/18 08:00 118 06/07/18 04:00 98.8 72 20 131/75 (93) 94 98.8 06/07/18 04:00 106 06/07/18 00:00 98 06/07/18 00:00 98.7 98 17 131/76 (94) 96 98.7 06/06/18 21:00 Room Air 06/06/18 20:00 120 06/06/18 20:00 98.9 120 18 134/80 (98) 98 98.9 06/06/18 16:18 98.6 115 20 130/78 (95) 96 98.6 06/06/18 16:00 114 Intake and Output 06/06/18 06/07/18 19:00 07:00 Intake Total 1100 ml 740 ml Output Total 1600 ml 1000 ml Balance -500 ml -260 ml Intake Oral 600 ml 240 ml IV Total 500 ml 500 ml Output Urine Total 1600 ml 1000 ml # Bowel Movements 3 Laboratory Tests 06/06/18 16:00: Stool Occult Blood Positive 06/07/18 05:45: White Blood Count 8.9, Red Blood Count 4.45L, Hemoglobin 11.7L, Hematocrit 36.0L , Mean Corpuscular Volume 81, Mean Corpuscular Hemoglobin 26.3L, Mean Corpuscular Hemoglobin Concent 32.5, Red Cell Distribution Width 19.8H, Platelet Count 299, Mean Platelet Volume 6.2L, Neutrophils (%) (Auto) 81.7H, Lymphocytes (%) (Auto) 9.7L, Monocytes (%) (Auto) 7.2, Eosinophils (%) (Auto) 0.3, Basophils (%) (Auto) 1.0, Sodium Level 131L, Potassium Level 2.7*L, Chloride Level 94L, Carbon Dioxide Level 29, Anion Gap 7, Blood Urea Nitrogen 4L , Creatinine 0.6, Estimat Glomerular Filtration Rate , Glucose Level 118H, Calcium Level 10.7H Height (Feet): 6 Height (Inches): 0.00 Weight (Pounds): 130 Objective Thin AA man NCAT Supple CTA RRR abd soft no edema Suellen Baum MD Jun 07, 2018 15:58
--- NOTE | 2018-06-07 16:16 | Cardiology Report ---
APPROVED REPORT EKG Measurement Heart [id number] Sinus tachycardia Possible Left atrial enlargement Abnormal ECG
[2018-06-07] MEDS ORDERED: Tubing IV Secondary IV ONE (18:17)
[2018-06-07 20:00] VITALS: BP 121/78
[2018-06-08] VITALS (18 sets, daily range): BP systolic 85–120; BP diastolic 52–83
[2018-06-08] MEDS: Morphine Sulfate 2mg/ml Inj IVP PRN ×3 (04:32→20:58)
[2018-06-08] MEDS: D5 1/2NS w/KCl 40meq 1000ml 1,000 ML IV SCH (05:16)
[2018-06-08] MEDS: metroNIDAZOLE 500mg tab ORAL SCH ×3 (05:16→22:20)
[2018-06-08] MEDS: Heparin 5000 units/ml inj SUBQ SCH ×2 (08:34→20:37)
[2018-06-08] MEDS ORDERED: Metoprolol 5mg/5ml Inj IVP SCH (09:20)
[2018-06-08 09:30] LABS: ANION GAP 7 mmol/L (5-15); BLOOD UREA NITROGEN 20 mg/dL (7-18); CALCIUM 10.1 MG/DL (8.5-10.1); CARBON DIOXIDE 26 MMOL/L (21-32); CHLORIDE 101 MMOL/L (98-107); CREATININE 0.6 MG/DL (0.55-1.30); POTASSIUM 4.3 MMOL/L (3.5-5.1); SODIUM 134 MMOL/L (136-145)
[2018-06-08] MEDS ORDERED: Adenosine 6mg/2ml Inj IVP ONE ×2 (09:30→09:35)
--- NOTE | 2018-06-08 09:36 | Consultation ---
History of Present Illness General Date patient seen: Jun 08, 2018 Time patient seen: 09:30 Chief Complaint: Generalized Weakness Reason for Consultation: SVT Present Illness HPI 77 year old male presents with SOB, found to be in SVT rates 170s. On floor given adenosine 6 mg and 12 mg, heart rates dropped then went back to SVT. Metoprolol IV push given then patient moved to ICU for cardioversion. He came in with generalized weakness x 1 day; missed chemo tx for hx of lung CA. Allergies: Coded Allergies: No Known Allergies (Unverified , 06/04/18) Medication History Miscellaneous Medications Unable to Obtain Medications (Unable To Obtain Meds), (Reported) Patient History Healthcare decision maker Resuscitation status Full Code Advanced Directive on File Physical Exam Last 24 Hour Vital Signs Date Time Temp Pulse Resp B/P (MAP) Pulse Ox O2 Delivery O2 Flow Rate FiO2 06/08/18 08:48 165 06/08/18 08:31 98.8 06/08/18 04:00 134 06/08/18 04:00 98.8 130 20 114/72 (86) 98 98.8 06/08/18 00:00 97.5 124 18 120/73 (89) 97 97.5 06/08/18 00:00 122 06/07/18 21:00 Room Air 06/07/18 20:00 98.9 124 18 121/78 (92) 97 98.9 06/07/18 16:00 132 06/07/18 15:57 98.7 136 19 110/74 (86) 98 98.7 06/07/18 12:00 124 06/07/18 12:00 99.1 115 21 140/81 (100) 97 99.1 Intake and Output 06/07/18 06/08/18 19:00 07:00 Intake Total 1680 ml 1380 ml Output Total 1200 ml 500 ml Balance 480 ml 880 ml Intake Oral 780 ml 480 ml IV Total 900 ml 900 ml Output Urine Total 1200 ml 500 ml # Bowel Movements 1 Laboratory Tests Test 06/08/18 08:30 Sodium Level Pending Potassium Level Pending Chloride Level Pending Carbon Dioxide Level Pending Blood Urea Nitrogen Pending Creatinine Pending Estimat Glomerular Filtration Rate Pending Glucose Level Pending Calcium Level Pending Height (Feet): 6 Height (Inches): 0.00 Weight (Pounds): 127 Medications Current Medications Medications (Trade) Dose Ordered Sig/Matthieu Route PRN Reason Start Time Stop Time Status Last Admin Dose Admin Adenosine (Adenocard) 6 mg ONCE ONCE IVP 06/08/18 09:30 06/08/18 09:31 06/08/18 08:48 Adenosine (Adenocard) 12 mg ONCE ONCE IVP 06/08/18 09:35 06/08/18 09:36 Ciprofloxacin (Cipro 250mg tab) 250 mg EVERY 12 HOURS ORAL 06/04/18 21:00 06/11/18 20:59 06/08/18 08:31 Dextrose (Dextrose 50%) 25 ml Q30M PRN IV Hypoglycemia 06/04/18 17:00 07/04/18 16:59 Dextrose (Dextrose 50%) 50 ml Q30M PRN IV Hypoglycemia 06/04/18 17:00 07/04/18 16:59 Dextrose/ Electrolytes 1,000 ml @ 100 mls/hr Q10H IV 06/06/18 13:00 07/04/18 12:59 06/08/18 05:16 Heparin Sodium (Porcine) (Heparin 5000 units/ml) 5,000 units EVERY 12 HOURS SUBQ 06/04/18 21:00 07/04/18 20:59 06/08/18 08:34 Metoprolol Tartrate (Lopressor) 5 mg Q5MIN X 3 IVP 06/08/18 09:20 06/08/18 09:37 Metronidazole (Flagyl) 500 mg Q8HR ORAL 06/04/18 22:00 06/11/18 21:59 06/08/18 05:16 Morphine Sulfate (Morphine Sulfate) 2 mg Q3H PRN IVP For moderate Pain 06/04/18 18:00 06/11/18 17:59 06/08/18 08:31 Ondansetron HCl (Zofran) 4 mg Q6H PRN IVP Nausea & Vomiting 06/04/18 17:00 07/04/18 16:59 06/07/18 20:24 Zolpidem Tartrate (Ambien) 5 mg DAILYPRN PRN ORAL Insomnia 06/04/18 17:00 06/11/18 16:59 Assessment/Plan Status: stable Assessment/Plan Assessment: (1) Episode of generalized weakness (2) Colitis (3) Bacteremia (4) Hypercalcemia (5) Diabetes (6) Lung Cancer (7) Supraventricular tachycardia Plan: Rate control with metoprolol 50 BID (hold for SBP <90) Monitor blood pressures, hold antihypertensive therapy IV fluids Replete electrolytes if unstable will cardiovert in ICU Continue Abx per ID Outpatient stress test when stable Navjot Moya MD Jun 08, 2018 09:36
[2018-06-08] MEDS: Metoprolol Tartrate 50mg tab ORAL SCH ×3 (11:17→20:36)
[2018-06-08] MEDS ORDERED: D5 1/2NS w/KCl 40meq 1000ml 1,000 ML IV SCH (11:30)
--- NOTE | 2018-06-08 12:22 | Infectious Diseases Prog Note ---
Assessment/Plan Assessment/Plan A; Sepsis/SIRS Diarrhea Lung cancer Positive blood culture like contamination Cachexia Hypokalemia corrected SVT P; Continue Cipro & Flagyl Subjective ROS Limited/Unobtainable: Yes Cardiovascular: Reports: palpitations Gastrointestinal/Abdominal: Reports: vomiting, diarrhea Allergies: Coded Allergies: No Known Allergies (Unverified , 06/04/18) Objective Vital Signs Last 24 Hour Vital Signs Date Time Temp Pulse Resp B/P (MAP) Pulse Ox O2 Delivery O2 Flow Rate FiO2 06/08/18 12:00 145 30 103/63 (76) 97 06/08/18 11:21 140 113/70 06/08/18 11:00 140 28 113/70 (84) 95 06/08/18 10:00 133 29 95/57 (70) 95 06/08/18 09:52 132 06/08/18 09:45 97.4 132 32 85/52 (63) 95 97.4 06/08/18 09:00 Room Air 06/08/18 08:48 165 06/08/18 08:31 98.8 06/08/18 08:00 97.6 160 30 91/64 (73) 99 97.6 06/08/18 04:00 134 06/08/18 04:00 98.8 130 20 114/72 (86) 98 98.8 06/08/18 00:00 97.5 124 18 120/73 (89) 97 97.5 06/08/18 00:00 122 06/07/18 21:00 Room Air 06/07/18 20:00 98.9 124 18 121/78 (92) 97 98.9 06/07/18 16:00 132 06/07/18 15:57 98.7 136 19 110/74 (86) 98 98.7 Height (Feet): 6 Height (Inches): 0.00 Weight (Pounds): 127 General Appearance: cachetic HEENT: mucous membranes moist Respiratory/Chest: lungs clear Cardiovascular: tachycardia, other - Port Abdomen: soft, non tender Extremities: no edema Neurologic/Psychiatric: alert, responsive Laboratory Tests Test 06/08/18 08:30 Sodium Level 134 MMOL/L (136-145) L Potassium Level 4.3 MMOL/L (3.5-5.1) # Chloride Level 101 MMOL/L (98-107) Carbon Dioxide Level 26 MMOL/L (21-32) Anion Gap 7 mmol/L (5-15) Blood Urea Nitrogen 20 mg/dL (7-18) H Creatinine 0.6 MG/DL (0.55-1.30) Estimat Glomerular Filtration Rate mL/min (>60) Glucose Level 151 MG/DL (74-106) H Calcium Level 10.1 MG/DL (8.5-10.1) Current Medications Medications (Trade) Dose Ordered Sig/Matthieu Route PRN Reason Start Time Stop Time Status Last Admin Dose Admin Ciprofloxacin (Cipro 250mg tab) 250 mg EVERY 12 HOURS ORAL 06/08/18 21:00 06/11/18 20:59 Dextrose (Dextrose 50%) 25 ml Q30M PRN IV Hypoglycemia 06/08/18 11:00 07/08/18 10:59 Dextrose (Dextrose 50%) 50 ml Q30M PRN IV Hypoglycemia 06/08/18 11:00 07/08/18 10:59 Dextrose/ Electrolytes 1,000 ml @ 100 mls/hr Q10H IV 06/08/18 11:30 07/08/18 11:29 06/08/18 11:18 Heparin Sodium (Porcine) (Heparin 5000 units/ml) 5,000 units EVERY 12 HOURS SUBQ 06/08/18 21:00 07/04/18 20:59 Metoprolol Tartrate (Lopressor) 50 mg Q12HR ORAL 06/08/18 12:00 07/08/18 11:59 06/08/18 11:21 Metronidazole (Flagyl) 500 mg Q8HR ORAL 06/08/18 14:00 06/11/18 21:59 Morphine Sulfate (Morphine Sulfate) 2 mg Q3H PRN IVP Moderate Pain (Pain Scale 4-6) 06/08/18 11:00 06/11/18 10:59 Ondansetron HCl (Zofran) 4 mg Q6H PRN IVP Nausea & Vomiting 06/08/18 11:00 07/04/18 16:59 06/08/18 11:44 Zolpidem Tartrate (Ambien) 5 mg HSPRN PRN ORAL Insomnia 06/08/18 21:00 06/15/18 20:59 Doug Cardona MD Jun 08, 2018 12:22
--- NOTE | 2018-06-08 15:11 | General Progress Note ---
Assessment/Plan Problem List: (1) Episode of generalized weakness ICD Codes: R53.1 - Weakness SNOMED: 98730946 (2) Colitis ICD Codes: K52.9 - Noninfective gastroenteritis and colitis, unspecified SNOMED: 63005051 (3) Bacteremia ICD Codes: R78.81 - Bacteremia SNOMED: 8241450 (4) Hypercalcemia ICD Codes: E83.52 - Hypercalcemia SNOMED: 62263713 (5) Hypokalemia ICD Codes: E87.6 - Hypokalemia SNOMED: 79515140 Assessment/Plan IVF with ruth Marino GI F/U follow labs Abxs rate control Discussed with RN Subjective Allergies: Coded Allergies: No Known Allergies (Unverified , 06/04/18) Subjective Pt was transferred to ICU for SVT Objective Last 24 Hour Vital Signs Date Time Temp Pulse Resp B/P (MAP) Pulse Ox O2 Delivery O2 Flow Rate FiO2 06/08/18 15:00 121 24 93/58 (70) 98 06/08/18 14:00 128 33 87/59 (68) 98 06/08/18 13:00 139 28 95/61 (72) 100 06/08/18 12:02 137 06/08/18 12:00 145 30 103/63 (76) 97 06/08/18 11:21 140 113/70 06/08/18 11:00 140 28 113/70 (84) 95 06/08/18 10:00 133 29 95/57 (70) 95 06/08/18 09:52 132 06/08/18 09:45 97.4 132 32 85/52 (63) 95 97.4 06/08/18 09:35 160 06/08/18 09:00 Room Air 06/08/18 08:48 165 06/08/18 08:31 98.8 06/08/18 08:00 97.6 160 30 91/64 (73) 99 97.6 06/08/18 04:00 134 06/08/18 04:00 98.8 130 20 114/72 (86) 98 98.8 06/08/18 00:00 97.5 124 18 120/73 (89) 97 97.5 06/08/18 00:00 122 06/07/18 21:00 Room Air 06/07/18 20:00 98.9 124 18 121/78 (92) 97 98.9 06/07/18 16:00 132 06/07/18 15:57 98.7 136 19 110/74 (86) 98 98.7 Intake and Output 06/07/18 06/08/18 19:00 07:00 Intake Total 1680 ml 1380 ml Output Total 1200 ml 500 ml Balance 480 ml 880 ml Intake Oral 780 ml 480 ml IV Total 900 ml 900 ml Output Urine Total 1200 ml 500 ml # Bowel Movements 1 Laboratory Tests 06/08/18 08:30: Sodium Level 134L, Potassium Level 4.3#, Chloride Level 101, Carbon Dioxide Level 26, Anion Gap 7, Blood Urea Nitrogen 20H, Creatinine 0.6, Estimat Glomerular Filtration Rate , Glucose Level 151H, Calcium Level 10.1 Height (Feet): 6 Height (Inches): 0.00 Weight (Pounds): 60 Cardiovascular: tachycardia Respiratory/Chest: rhonchi - bilaterally Edema: no edema noted Generalized Ronen Cardona MD Jun 08, 2018 15:11
[2018-06-08] MEDS: D5 1/2NS w/KCl 20mEq 1,000 ML IV SCH (15:27)
--- NOTE | 2018-06-08 16:51 | Cardiology Report ---
APPROVED REPORT EXAM: Two-dimensional and M-mode echocardiogram with Doppler and color Doppler. INDICATION Arrhythmia M-Mode DIMENSIONS IVSd1.2 (0.7-1.1cm)Left Atrium (MM)1.9 (1.6-4.0cm) LVDd4.0 (3.5-5.6cm)Aortic Root3.0 (2.0-3.7cm) PWd1.0 (0.7-1.1cm)Aortic Cusp Exc.1.9 (1.5-2.0cm) LVDs2.1 (2.5-4.0cm) PWs1.7 cm Technically difficult study due to poor acoustic windows. Study quality precludes accurate assessment of regional wall motion. Normal left ventricular chamber size. Abnormal septal and anterior wall motion. Left ventricular ejection fraction estimated to be 50-55 %. Mild left ventricular hypertrophy. No evidence of pericardial effusion. All other cardiac chamber sizes are within normal limits. Mild focal aortic valve sclerosis with adequate cusp excursion. Mildly thickened mitral valve leaflets with normal excursion. Moderate mitral annulus and aortic root calcification. Pulmonic valve not visualized. Normal tricuspid valve structure. IVC is normal in size with physiological collapse. A color flow and spectral Doppler study was performed and revealed: No aortic insufficiency. Trace mitral regurgitation. Mitral inflow velocities indicates possible pseudo normalization pattern implying significant left ventricular diastolic dysfunction (Grade II). Mild tricuspid regurgitation. Tricuspid systolic velocities suggests peak right ventricular systolic pressure of 41 mmHg, consistent with mild pulmonary hypertension.
[2018-06-08] MEDS ORDERED: Metoprolol 25mg tab ORAL SCH (21:00)
[2018-06-08] MEDS ORDERED: Zolpidem 5mg tab ORAL PRN (21:00)
[2018-06-08] MEDS ORDERED: Sodium Chloride 500ML 500 ML IV ONE (22:45)
--- NOTE | 2018-06-08 22:50 | General Progress Note ---
Assessment/Plan Assessment/Plan Assessment - dark stool / bloody emesis - OB (+) Stools - SVT - Diarrhea - improved - dehydration - h/o lung CA, on chemo Recommendations - IVF - Keep NPO - BID PPI - continue cipro and flagyl - will consider EGD in am if stable - correct electrolytes PRN Subjective Allergies: Coded Allergies: No Known Allergies (Unverified , 06/04/18) Subjective Seen in ICU SVT noted RN reports blood streaked emesis and some dark stools some abd pain Objective Last 24 Hour Vital Signs Date Time Temp Pulse Resp B/P (MAP) Pulse Ox O2 Delivery O2 Flow Rate FiO2 06/08/18 22:00 120 30 101/62 (75) 99 06/08/18 21:28 98.9 06/08/18 21:00 121 21 101/65 (77) 99 06/08/18 20:36 134 104/64 06/08/18 20:00 98.9 134 22 104/64 (77) 100 06/08/18 19:00 130 30 85/54 (64) 99 06/08/18 18:00 147 25 93/58 (70) 96 06/08/18 17:00 134 26 101/64 (76) 98 06/08/18 16:00 138 22 96/66 (76) 98 06/08/18 16:00 135 06/08/18 15:00 97.6 121 24 93/58 (70) 98 06/08/18 14:00 128 33 87/59 (68) 98 06/08/18 13:00 139 28 95/61 (72) 100 06/08/18 12:02 137 06/08/18 12:00 97.6 145 30 103/63 (76) 97 06/08/18 11:21 140 113/70 06/08/18 11:00 140 28 113/70 (84) 95 06/08/18 10:00 133 29 95/57 (70) 95 06/08/18 09:52 132 06/08/18 09:45 97.4 132 32 85/52 (63) 95 97.4 06/08/18 09:35 160 06/08/18 09:00 Room Air 06/08/18 08:48 165 06/08/18 08:31 98.8 06/08/18 08:00 97.6 160 30 91/64 (73) 99 97.6 06/08/18 04:00 134 06/08/18 04:00 98.8 130 20 114/72 (86) 98 98.8 06/08/18 00:00 97.5 124 18 120/73 (89) 97 97.5 06/08/18 00:00 122 Intake and Output 06/07/18 06/08/18 19:00 07:00 Intake Total 1680 ml 1380 ml Output Total 1200 ml 500 ml Balance 480 ml 880 ml Intake Oral 780 ml 480 ml IV Total 900 ml 900 ml Output Urine Total 1200 ml 500 ml # Bowel Movements 1 Laboratory Tests 06/08/18 08:30: Sodium Level 134L, Potassium Level 4.3#, Chloride Level 101, Carbon Dioxide Level 26, Anion Gap 7, Blood Urea Nitrogen 20H, Creatinine 0.6, Estimat Glomerular Filtration Rate , Glucose Level 151H, Calcium Level 10.1 Height (Feet): 6 Height (Inches): 0.00 Weight (Pounds): 60 Objective Thin AA man NCAT Supple CTA RRR abd soft no edema Suellen Baum MD Jun 08, 2018 22:50
[2018-06-08] MEDS: Pantoprazole Inj IVP SCH (22:53)
[2018-06-09] VITALS (30 sets, daily range): BP systolic 79–138; BP diastolic 51–75
[2018-06-09] MEDS: Metoclopramide 10mg/2ml Inj IVP SCH ×4 (00:29→18:52)
[2018-06-09] MEDS ORDERED: Sodium Chloride 500ML 500 ML IV ONE (00:30)
[2018-06-09] MEDS: Midodrine 10mg tab ORAL SCH ×4 (00:58→18:00)
[2018-06-09] MEDS: D5 1/2NS w/KCl 20mEq 1,000 ML IV SCH ×3 (01:42→23:12)
[2018-06-09] MEDS: metroNIDAZOLE 500mg tab ORAL SCH ×4 (05:35→21:24)
[2018-06-09 06:56] LABS: HEMATOCRIT 20.1 % (42.0-52.0); MEAN CORPUSCULAR VOLUME 82 FL (80-99); PLATELET COUNT 293 K/UL (150-450); RED BLOOD COUNT 2.44 M/UL (4.70-6.10); RED CELL DISTRIBUTION WIDTH 21.2 % (11.6-14.8); WHITE BLOOD COUNT 11.3 K/UL (4.8-10.8)
[2018-06-09 07:05] LABS: ALANINE AMINOTRANSFERASE 7 U/L (12-78); ALBUMIN/GLOBULIN RATIO 0.6 (1.0-2.7); ALKALINE PHOSPHATASE 54 U/L (46-116); ANION GAP 7 mmol/L (5-15); ASPARTATE AMINO TRANSFERASE 10 U/L (15-37); BILIRUBIN,TOTAL 0.1 MG/DL (0.2-1.0); BLOOD UREA NITROGEN 24 mg/dL (7-18); CALCIUM 9.9 MG/DL (8.5-10.1); CARBON DIOXIDE 24 MMOL/L (21-32); CHLORIDE 103 MMOL/L (98-107); CREATININE 0.7 MG/DL (0.55-1.30); POTASSIUM 3.7 MMOL/L (3.5-5.1); SODIUM 134 MMOL/L (136-145)
[2018-06-09 07:13] LABS: HEMOGLOBIN 6.4 G/DL (14.2-18.0)
[2018-06-09] MEDS: Metoprolol Tartrate 50mg tab ORAL SCH ×2 (09:00→21:00)
[2018-06-09] MEDS: Heparin 5000 units/ml inj SUBQ SCH ×2 (09:00→21:00)
--- NOTE | 2018-06-09 09:48 | Pre-Procedure Note/Attestation ---
Pre-Procedure Note/Attestation Complete Prior to Procedure Planned Procedure: not applicable Procedure Narrative: egd Indications for Procedure Pre-Operative Diagnosis: UGIB Attestation I attest that I discussed the nature of the procedure; its benefits; risks and complications; and alternatives (and the risks and benefits of such alternatives ), prior to the procedure, with the patient (or the patient's legal welding equipment sales representative). I attest that, if there was a reasonable possibility of needing a blood transfusion, the patient (or the patient's legal welding equipment sales representative) was given the [facility] standardized written summary, pursuant to the [place] Blood Safety Act ([place] Health and Safety Code # 1645, as amended). I attest that I re-evaluated the patient just prior to the surgery and that there has been no change in the patient's H&P, except as documented below: Suellen Baum MD Jun 09, 2018 09:48
--- NOTE | 2018-06-09 09:48 | General Progress Note ---
Assessment/Plan Assessment/Plan Assessment - dark stool / bloody emesis - severe anemia - abd pain - OB (+) Stools - SVT - dehydration - h/o lung CA, on chemo - mild hyponatremia - hypoention Recommendations - IVF/bolus - saline based - Keep NPO - BID PPI - continue cipro and flagyl - RBC transfusion - EGD at 11 am - correct electrolytes PRN Subjective Allergies: Coded Allergies: No Known Allergies (Unverified , 06/04/18) Subjective Seen in ICU Severely anemic today c/o abd pain (+) GI bleed overnight D/w family re EGD and blood tansfusion d/w cardiology re HR blood ordered EGD scheduled a 11 am Objective Last 24 Hour Vital Signs Date Time Temp Pulse Resp B/P (MAP) Pulse Ox O2 Delivery O2 Flow Rate FiO2 06/09/18 09:00 98.4 120 25 79/52 (61) 06/09/18 08:30 119 25 95/71 (79) 06/09/18 08:00 124 26 96/61 (73) 100 06/09/18 08:00 Room Air 06/09/18 07:00 125 29 101/60 (74) 100 06/09/18 06:00 133 26 132/59 (83) 100 06/09/18 05:00 116 20 113/67 (82) 100 06/09/18 04:00 115 06/09/18 04:00 118 22 96/51 (66) 100 06/09/18 04:00 Room Air 06/09/18 03:00 119 22 129/57 (81) 100 06/09/18 02:00 98.7 124 27 103/70 (81) 100 06/09/18 01:00 136 19 124/65 (84) 99 06/09/18 00:24 107 25 116/60 (78) 99 06/09/18 00:00 107 26 116/60 (78) 99 06/09/18 00:00 109 06/09/18 00:00 Room Air 06/08/18 23:00 110 23 112/65 (81) 99 06/08/18 22:00 120 30 101/62 (75) 99 06/08/18 21:28 98.9 06/08/18 21:00 121 21 101/65 (77) 99 06/08/18 20:36 134 104/64 06/08/18 20:00 98.9 134 22 104/64 (77) 100 06/08/18 20:00 Room Air 06/08/18 19:00 130 30 85/54 (64) 99 06/08/18 18:00 147 25 93/58 (70) 96 06/08/18 17:00 134 26 101/64 (76) 98 06/08/18 16:00 138 22 96/66 (76) 98 06/08/18 16:00 135 06/08/18 15:00 97.6 121 24 93/58 (70) 98 06/08/18 14:00 128 33 87/59 (68) 98 06/08/18 13:00 139 28 95/61 (72) 100 06/08/18 12:02 137 06/08/18 12:00 97.6 145 30 103/63 (76) 97 06/08/18 11:21 140 113/70 06/08/18 11:00 140 28 113/70 (84) 95 06/08/18 10:00 133 29 95/57 (70) 95 06/08/18 09:52 132 06/08/18 09:45 97.4 132 32 85/52 (63) 95 97.4 Intake and Output 06/08/18 06/09/18 18:59 06:59 Intake Total 1955 ml 1260 ml Output Total 520 ml 120 ml Balance 1435 ml 1140 ml Intake Oral 340 ml 60 ml IV Total 1615 ml 1200 ml Output Urine Total 520 ml 120 ml # Bowel Movements 2 3 Laboratory Tests 06/09/18 05:50: White Blood Count 11.3H, Red Blood Count 2.44L, Hemoglobin 6.4*L, Hematocrit 20.1L, Mean Corpuscular Volume 82, Mean Corpuscular Hemoglobin 26.1L, Mean Corpuscular Hemoglobin Concent 31.7L, Red Cell Distribution Width 21.2H, Platelet Count 293, Mean Platelet Volume 5.7L, Neutrophils (%) (Auto) , Lymphocytes (%) (Auto) , Monocytes (%) (Auto) , Eosinophils (%) (Auto) , Basophils (%) (Auto) , Neutrophils % (Manual) [Pending], Lymphocytes % (Manual) [Pending], Platelet Estimate [Pending], Platelet Morphology [Pending], Sodium Level 134L, Potassium Level 3.7, Chloride Level 103, Carbon Dioxide Level 24, Anion Gap 7, Blood Urea Nitrogen 24H, Creatinine 0.7, Estimat Glomerular Filtration Rate , Glucose Level 130H, Calcium Level 9.9, Total Bilirubin 0.1L, Aspartate Amino Transf (AST/SGOT) 10L, Alanine Aminotransferase (ALT/SGPT) 7L, Alkaline Phosphatase 54, Total Protein 5.1L, Albumin 2.0L, Globulin 3.1, Albumin /Globulin Ratio 0.6L Height (Feet): 5 Height (Inches): 11.00 Weight (Pounds): 59 Objective Thin AA man NCAT Supple CTA RRR abd soft no edema Suellen Baum MD Jun 09, 2018 09:48
--- NOTE | 2018-06-09 10:51 | Anethesia Preoperative Eval ---
Anesthesia Pre-op PMH/ROS General Date of Evaluation: Jun 09, 2018 Time of Evaluation: 10:30 Anesthesiologist: mariam ASA Score: ASA 4 Mallampati Score Class I : Soft palate, uvula, fauces, pillars visible Class II: Soft palate, uvula, fauces visible Class III: Soft palate, base of uvula visible Class IV: Only hard plate visible Mallampati Classification: Class I Surgeon: kendrick Diagnosis: gib Surgical Procedure: egd Anesthesia History: none Social History: smoking - former smoker Family History: no anesthesia problems Allergies: Coded Allergies: No Known Allergies (Unverified , 06/04/18) Medications: see eMAR Patient NPO?: Yes Past Medical History Cardiovascular: Reports: HTN Pulmonary: Reports: other - lung cancer Gastrointestinal/Genitourinary: Reports: other - uti, colitis Endocrine: Reports: DM Anesthesia Pre-op Phys. Exam Physician Exam Last Vital Signs Date Time Temp Pulse Resp B/P (MAP) Pulse Ox O2 Delivery O2 Flow Rate FiO2 06/09/18 09:00 98.4 120 25 79/52 (61) 06/09/18 08:00 100 06/09/18 08:00 Room Air Constitutional: NAD Neurologic: CN 2-12 intact Cardiovascular: other - tachycardia Respiratory: CTA Gastrointestinal: S/NT/ND Airway Exam Mallampati Score: Class II MO: limited Neck: flexible TMD: 2fb ROM: limited Anesthesia Pre-op A/P Labs Hematology Test 06/09/18 05:50 White Blood Count 11.3 K/UL (4.8-10.8) H Red Blood Count 2.44 M/UL (4.70-6.10) L Hemoglobin 6.4 G/DL (14.2-18.0) *L Hematocrit 20.1 % (42.0-52.0) L Mean Corpuscular Volume 82 FL (80-99) Mean Corpuscular Hemoglobin 26.1 PG (27.0-31.0) L Mean Corpuscular Hemoglobin Concent 31.7 G/DL (32.0-36.0) L Red Cell Distribution Width 21.2 % (11.6-14.8) H Platelet Count 293 K/UL (150-450) Mean Platelet Volume 5.7 FL (6.5-10.1) L Neutrophils (%) (Auto) % (45.0-75.0) Lymphocytes (%) (Auto) % (20.0-45.0) Monocytes (%) (Auto) % (1.0-10.0) Eosinophils (%) (Auto) % (0.0-3.0) Basophils (%) (Auto) % (0.0-2.0) Differential Total Cells Counted 100 Neutrophils % (Manual) 83 % (45-75) H Lymphocytes % (Manual) 7 % (20-45) L Monocytes % (Manual) 10 % (1-10) Eosinophils % (Manual) 0 % (0-3) Basophils % (Manual) 0 % (0-2) Band Neutrophils 0 % (0-8) Platelet Estimate Adequate Platelet Morphology Normal Hypochromasia 2+ Anisocytosis 2+ Sid Cells 1+ Chemistry Test 06/09/18 05:50 Sodium Level 134 MMOL/L (136-145) L Potassium Level 3.7 MMOL/L (3.5-5.1) Chloride Level 103 MMOL/L (98-107) Carbon Dioxide Level 24 MMOL/L (21-32) Anion Gap 7 mmol/L (5-15) Blood Urea Nitrogen 24 mg/dL (7-18) H Creatinine 0.7 MG/DL (0.55-1.30) Estimat Glomerular Filtration Rate mL/min (>60) Glucose Level 130 MG/DL (74-106) H Calcium Level 9.9 MG/DL (8.5-10.1) Total Bilirubin 0.1 MG/DL (0.2-1.0) L Aspartate Amino Transf (AST/SGOT) 10 U/L (15-37) L Alanine Aminotransferase (ALT/SGPT) 7 U/L (12-78) L Alkaline Phosphatase 54 U/L (46-116) Total Protein 5.1 G/DL (6.4-8.2) L Albumin 2.0 G/DL (3.4-5.0) L Globulin 3.1 g/dL Albumin/Globulin Ratio 0.6 (1.0-2.7) L Risk Assessment & Plan Assessment: [email or web address] Plan: mac pRBCs being given Status Change Before Surgery: No Pre-Antibiotics Drug: Jacqueline Wynn MD Jun 09, 2018 10:51
[2018-06-09] MEDS: Pantoprazole Inj IVP SCH ×2 (10:59→21:11)
--- NOTE | 2018-06-09 11:01 | Infectious Diseases Prog Note ---
Assessment/Plan Assessment/Plan A; Sepsis/SIRS Diarrhea Lung cancer Positive blood culture like contamination Cachexia Hypokalemia corrected GI bleeding Severe anemia SVT P; Continue Cipro & Flagyl Will have EGD Subjective ROS Limited/Unobtainable: Yes Constitutional: Reports: no symptoms Gastrointestinal/Abdominal: Reports: blood in stool, other - bloody emesis & epigastric pain Allergies: Coded Allergies: No Known Allergies (Unverified , 06/04/18) Objective Vital Signs Last 24 Hour Vital Signs Date Time Temp Pulse Resp B/P (MAP) Pulse Ox O2 Delivery O2 Flow Rate FiO2 06/09/18 10:30 123 17 106/60 (75) 100 06/09/18 10:16 116 26 105/62 (76) 100 06/09/18 10:00 114 24 113/62 (79) 100 06/09/18 09:00 98.4 120 25 79/52 (61) 06/09/18 09:00 123 106/60 06/09/18 08:30 119 25 95/71 (79) 06/09/18 08:00 124 26 96/61 (73) 100 06/09/18 08:00 118 06/09/18 08:00 Room Air 06/09/18 07:00 125 29 101/60 (74) 100 06/09/18 06:00 133 26 132/59 (83) 100 06/09/18 05:00 116 20 113/67 (82) 100 06/09/18 04:00 115 06/09/18 04:00 118 22 96/51 (66) 100 06/09/18 04:00 Room Air 06/09/18 03:00 119 22 129/57 (81) 100 06/09/18 02:00 98.7 124 27 103/70 (81) 100 06/09/18 01:00 136 19 124/65 (84) 99 06/09/18 00:24 107 25 116/60 (78) 99 06/09/18 00:00 107 26 116/60 (78) 99 06/09/18 00:00 109 06/09/18 00:00 Room Air 06/08/18 23:00 110 23 112/65 (81) 99 06/08/18 22:00 120 30 101/62 (75) 99 06/08/18 21:28 98.9 06/08/18 21:00 121 21 101/65 (77) 99 06/08/18 20:36 134 104/64 06/08/18 20:00 98.9 134 22 104/64 (77) 100 06/08/18 20:00 Room Air 06/08/18 19:00 130 30 85/54 (64) 99 06/08/18 18:00 147 25 93/58 (70) 96 06/08/18 17:00 134 26 101/64 (76) 98 06/08/18 16:00 138 22 96/66 (76) 98 06/08/18 16:00 135 06/08/18 15:00 97.6 121 24 93/58 (70) 98 06/08/18 14:00 128 33 87/59 (68) 98 06/08/18 13:00 139 28 95/61 (72) 100 06/08/18 12:02 137 06/08/18 12:00 97.6 145 30 103/63 (76) 97 06/08/18 11:21 140 113/70 06/08/18 11:00 140 28 113/70 (84) 95 Height (Feet): 5 Height (Inches): 11.00 Weight (Pounds): 59 General Appearance: cachetic HEENT: mucous membranes moist Respiratory/Chest: lungs clear Cardiovascular: tachycardia, other - Port Abdomen: soft, non tender Extremities: no edema Neurologic/Psychiatric: alert, responsive Laboratory Tests Test 06/09/18 05:50 White Blood Count 11.3 K/UL (4.8-10.8) H Red Blood Count 2.44 M/UL (4.70-6.10) L Hemoglobin 6.4 G/DL (14.2-18.0) *L Hematocrit 20.1 % (42.0-52.0) L Mean Corpuscular Volume 82 FL (80-99) Mean Corpuscular Hemoglobin 26.1 PG (27.0-31.0) L Mean Corpuscular Hemoglobin Concent 31.7 G/DL (32.0-36.0) L Red Cell Distribution Width 21.2 % (11.6-14.8) H Platelet Count 293 K/UL (150-450) Mean Platelet Volume 5.7 FL (6.5-10.1) L Neutrophils (%) (Auto) % (45.0-75.0) Lymphocytes (%) (Auto) % (20.0-45.0) Monocytes (%) (Auto) % (1.0-10.0) Eosinophils (%) (Auto) % (0.0-3.0) Basophils (%) (Auto) % (0.0-2.0) Differential Total Cells Counted 100 Neutrophils % (Manual) 83 % (45-75) H Lymphocytes % (Manual) 7 % (20-45) L Monocytes % (Manual) 10 % (1-10) Eosinophils % (Manual) 0 % (0-3) Basophils % (Manual) 0 % (0-2) Band Neutrophils 0 % (0-8) Platelet Estimate Adequate Platelet Morphology Normal Hypochromasia 2+ Anisocytosis 2+ [place] Cells 1+ Sodium Level 134 MMOL/L (136-145) L Potassium Level 3.7 MMOL/L (3.5-5.1) Chloride Level 103 MMOL/L (98-107) Carbon Dioxide Level 24 MMOL/L (21-32) Anion Gap 7 mmol/L (5-15) Blood Urea Nitrogen 24 mg/dL (7-18) H Creatinine 0.7 MG/DL (0.55-1.30) Estimat Glomerular Filtration Rate mL/min (>60) Glucose Level 130 MG/DL (74-106) H Calcium Level 9.9 MG/DL (8.5-10.1) Total Bilirubin 0.1 MG/DL (0.2-1.0) L Aspartate Amino Transf (AST/SGOT) 10 U/L (15-37) L Alanine Aminotransferase (ALT/SGPT) 7 U/L (12-78) L Alkaline Phosphatase 54 U/L (46-116) Total Protein 5.1 G/DL (6.4-8.2) L Albumin 2.0 G/DL (3.4-5.0) L Globulin 3.1 g/dL Albumin/Globulin Ratio 0.6 (1.0-2.7) L Current Medications Medications (Trade) Dose Ordered Sig/Matthieu Route PRN Reason Start Time Stop Time Status Last Admin Dose Admin Ciprofloxacin (Cipro 250mg tab) 250 mg EVERY 12 HOURS ORAL 06/08/18 21:00 06/11/18 20:59 06/08/18 20:36 Dextrose (Dextrose 50%) 25 ml Q30M PRN IV Hypoglycemia 06/08/18 11:00 07/08/18 10:59 Dextrose (Dextrose 50%) 50 ml Q30M PRN IV Hypoglycemia 06/08/18 11:00 07/08/18 10:59 Dextrose/ Electrolytes 1,000 ml @ 100 mls/hr Q10H IV 06/08/18 16:30 07/08/18 16:29 06/09/18 01:42 Heparin Sodium (Porcine) (Heparin 5000 units/ml) 5,000 units EVERY 12 HOURS SUBQ 06/08/18 21:00 07/04/18 20:59 06/08/18 20:37 Metoclopramide HCl (Reglan) 10 mg Q6H IVP 06/09/18 00:30 06/09/18 18:31 06/09/18 05:35 Metoprolol Tartrate (Lopressor) 50 mg Q12HR ORAL 06/09/18 09:00 07/09/18 08:59 Metronidazole (Flagyl) 500 mg Q8HR ORAL 06/08/18 14:00 06/11/18 21:59 06/09/18 05:35 Midodrine (Pro-Amatine) 10 mg THREE TIMES A DAY ORAL 06/09/18 01:00 07/09/18 00:59 06/09/18 00:58 Morphine Sulfate (Morphine Sulfate) 2 mg Q3H PRN IVP Moderate Pain (Pain Scale 4-6) 06/08/18 11:00 06/11/18 10:59 06/08/18 20:58 Ondansetron HCl (Zofran) 4 mg Q6H PRN IVP Nausea & Vomiting 06/08/18 11:00 07/04/18 16:59 06/09/18 01:44 Pantoprazole (Protonix) 40 mg EVERY 12 HOURS IVP 06/08/18 22:45 07/08/18 22:44 06/08/18 22:53 Zolpidem Tartrate (Ambien) 5 mg HSPRN PRN ORAL Insomnia 06/08/18 21:00 06/15/18 20:59 Doug Cardona MD Jun 09, 2018 11:01
[2018-06-09] MEDS ORDERED: Atropine Inj 1mg/10ml Syr IV PRN (11:30)
[2018-06-09] MEDS ORDERED: DiphenhydrAMINE 50mg/ml Inj IVP PRN (11:30)
[2018-06-09] MEDS ORDERED: fentaNYL 100 mcg/2 mL IV PRN (11:30)
[2018-06-09] MEDS ORDERED: Midazolam 2mg/2ml Inj IVP PRN (11:30)
[2018-06-09] MEDS ORDERED: NS 500ML IVPB ONE (11:55)
[2018-06-09] MEDS ORDERED: Lidocaine 1% MPF 10mg/ml 5ml ONE (12:00)
[2018-06-09] MEDS ORDERED: Propofol 200mg/20ml IV ONE (12:00)
[2018-06-09] MEDS ORDERED: Phenylephrine 10mg/ml Vial ONE (12:00)
--- NOTE | 2018-06-09 12:06 | Pre-Procedure Note/Attestation ---
Pre-Procedure Note/Attestation Complete Prior to Procedure Planned Procedure: not applicable Procedure Narrative: egd Indications for Procedure Pre-Operative Diagnosis: UGIB Attestation I attest that I discussed the nature of the procedure; its benefits; risks and complications; and alternatives (and the risks and benefits of such alternatives ), prior to the procedure, with the patient (or the patient's legal liability claims representative). I attest that, if there was a reasonable possibility of needing a blood transfusion, the patient (or the patient's legal liability claims representative) was given the [facility] standardized written summary, pursuant to the [place] Blood Safety Act ([place] Health and Safety Code # 1645, as amended). I attest that I re-evaluated the patient just prior to the surgery and that there has been no change in the patient's H&P, except as documented below: Suellen Baum MD Jun 09, 2018 12:06
--- NOTE | 2018-06-09 12:19 | General Progress Note ---
Assessment/Plan Problem List: (1) Episode of generalized weakness ICD Codes: R53.1 - Weakness SNOMED: 61979990 (2) Colitis ICD Codes: K52.9 - Noninfective gastroenteritis and colitis, unspecified SNOMED: 71853607 (3) Bacteremia ICD Codes: R78.81 - Bacteremia SNOMED: 3353244 (4) Hypercalcemia ICD Codes: E83.52 - Hypercalcemia SNOMED: 98351826 (5) Hypokalemia ICD Codes: E87.6 - Hypokalemia SNOMED: 51066606 (6) Anemia ICD Codes: D64.9 - Anemia, unspecified SNOMED: 176831663 Assessment/Plan Transfuse EGD follow labs Abxs rate control Discussed with RN can use port Subjective Allergies: Coded Allergies: No Known Allergies (Unverified , 06/04/18) Subjective getting EGD Objective Last 24 Hour Vital Signs Date Time Temp Pulse Resp B/P (MAP) Pulse Ox O2 Delivery O2 Flow Rate FiO2 06/09/18 12:00 98.4 116 28 106/56 (73) 100 06/09/18 11:32 115 25 119/64 (82) 06/09/18 11:30 116 28 103/63 (76) 06/09/18 11:00 114 28 111/59 (76) 06/09/18 10:30 123 17 106/60 (75) 100 06/09/18 10:16 116 26 105/62 (76) 100 06/09/18 10:00 114 24 113/62 (79) 100 06/09/18 09:00 98.4 120 25 79/52 (61) 06/09/18 09:00 123 106/60 06/09/18 08:30 119 25 95/71 (79) 06/09/18 08:00 124 26 96/61 (73) 100 06/09/18 08:00 118 06/09/18 08:00 Room Air 06/09/18 07:00 125 29 101/60 (74) 100 06/09/18 06:00 133 26 132/59 (83) 100 06/09/18 05:00 116 20 113/67 (82) 100 06/09/18 04:00 115 06/09/18 04:00 118 22 96/51 (66) 100 06/09/18 04:00 Room Air 06/09/18 03:00 119 22 129/57 (81) 100 06/09/18 02:00 98.7 124 27 103/70 (81) 100 06/09/18 01:00 136 19 124/65 (84) 99 06/09/18 00:24 107 25 116/60 (78) 99 06/09/18 00:00 107 26 116/60 (78) 99 06/09/18 00:00 109 06/09/18 00:00 Room Air 06/08/18 23:00 110 23 112/65 (81) 99 06/08/18 22:00 120 30 101/62 (75) 99 06/08/18 21:28 98.9 06/08/18 21:00 121 21 101/65 (77) 99 06/08/18 20:36 134 104/64 06/08/18 20:00 98.9 134 22 104/64 (77) 100 06/08/18 20:00 Room Air 06/08/18 19:00 130 30 85/54 (64) 99 06/08/18 18:00 147 25 93/58 (70) 96 06/08/18 17:00 134 26 101/64 (76) 98 06/08/18 16:00 138 22 96/66 (76) 98 06/08/18 16:00 135 06/08/18 15:00 97.6 121 24 93/58 (70) 98 06/08/18 14:00 128 33 87/59 (68) 98 06/08/18 13:00 139 28 95/61 (72) 100 Intake and Output 06/08/18 06/09/18 19:00 07:00 Intake Total 2055 ml 1160 ml Output Total 620 ml 20 ml Balance 1435 ml 1140 ml Intake Oral 340 ml 60 ml IV Total 1715 ml 1100 ml Output Urine Total 620 ml 20 ml # Bowel Movements 2 4 Laboratory Tests 06/09/18 05:50: White Blood Count 11.3H, Red Blood Count 2.44L, Hemoglobin 6.4*L, Hematocrit 20.1L, Mean Corpuscular Volume 82, Mean Corpuscular Hemoglobin 26.1L, Mean Corpuscular Hemoglobin Concent 31.7L, Red Cell Distribution Width 21.2H, Platelet Count 293, Mean Platelet Volume 5.7L, Neutrophils (%) (Auto) , Lymphocytes (%) (Auto) , Monocytes (%) (Auto) , Eosinophils (%) (Auto) , Basophils (%) (Auto) , Differential Total Cells Counted 100, Neutrophils % ( Manual) 83H, Lymphocytes % (Manual) 7L, Monocytes % (Manual) 10, Eosinophils % ( Manual) 0, Basophils % (Manual) 0, Band Neutrophils 0, Platelet Estimate Adequate, Platelet Morphology Normal, Hypochromasia 2+, Anisocytosis 2+, Sid Cells 1+, Sodium Level 134L, Potassium Level 3.7, Chloride Level 103, Carbon Dioxide Level 24, Anion Gap 7, Blood Urea Nitrogen 24H, Creatinine 0.7, Estimat Glomerular Filtration Rate , Glucose Level 130H, Calcium Level 9.9, Total Bilirubin 0.1L, Aspartate Amino Transf (AST/SGOT) 10L, Alanine Aminotransferase (ALT/SGPT) 7L, Alkaline Phosphatase 54, Total Protein 5.1L, Albumin 2.0L, Globulin 3.1, Albumin/Globulin Ratio 0.6L Height (Feet): 5 Height (Inches): 11.00 Weight (Pounds): 59 Cardiovascular: normal rate Respiratory/Chest: lungs clear Ronen Cardona MD Jun 09, 2018 12:19
--- NOTE | 2018-06-09 12:39 | Endoscopy Procedure Note ---
Endoscopy Procedure Note General Indication for Procedure: UGIB Procedures Performed: EGD Operative Findings/Diagnosis: Large (2x4 cm) antrum ulcer, two 67 mm fundus ulcer, Dieulfoy epi/bicap Specimen: none Pt Tolerated Procedure Well: Yes Estimated Blood Loss: none Anesthesia Anesthesiologist: Mg Banegas Anesthesia: MAC Medications Medication Given: see anesthesia record Inserted Devices Implant(s) used?: No GI Core Measures 50 yrs or older w/o bx or poly: Not Applicable 10yrs. F/U not recommended: Not Applicable If not recommended, why?: Suellen Baum MD Jun 09, 2018 12:39
--- NOTE | 2018-06-09 12:40 | Brief Operative Note ---
Immediate Post Operative Note Operative Note Chief Complaint: UGIB Pre-op Diagnosis: UGIB Procedure: EGD Epi Bicap Post-op Diagnosis: GUx 3, one large, bleeding diulafoy Surgeon: kendrick Anesthesiologist: Mg Banegas Anesthesia: MAC Specimen: yes Complications: none Condition: stable Fluids: given Estimated Blood Loss: none Drains: none Implant(s) used?: No Suellen Baum MD Jun 09, 2018 12:40
--- NOTE | 2018-06-09 12:59 | Immediate Post-Op Evaluation ---
Immediate Post-Op Evalulation Immediate Post-Op Evalulation Procedure: egd w/ submucosal injection and control of bleeding Date of Evaluation: Jun 09, 2018 Time of Evaluation: 12:57 IV Fluids: 350ml 0.9ns Blood Products: 1 unit pRBCs Estimated Blood Loss: negligible Blood Pressure Systolic: 95 Blood Pressure Diastolic: 62 Pulse Rate: 108 Respiratory Rate: 29 O2 Sat by Pulse Oximetry: 100 Temperature (Fahrenheit): 98.4 Pain Score (1-10): 0 Nausea: No Vomiting: No Complications none Patient Status: awake, reacts, patent Hydration Status: adequate Drug: Jacqueline Wynn MD Jun 09, 2018 12:58
--- NOTE | 2018-06-09 13:01 | 48 Hour Post Anesthesia Eval ---
Post Anesthesia Evaluation Procedure: egd w/ submucosal injection and control of bleeding Date of Evaluation: Jun 09, 2018 Time of Evaluation: 12:59 Blood Pressure Systolic: 95 0: 62 Pulse Rate: 106 Respiratory Rate: 26 Temperature (Fahrenheit): 98.4 O2 Sat by Pulse Oximetry: 100 Airway: patent Nausea: No Vomiting: No Pain Intensity: 0 Hydration Status: adequate Cardiopulmonary Status: stable Mental Status/LOC: patient returned to baseline Post-Anesthesia Complications: none Follow-up care needed: N/A Jacqueline Phelps MD Jun 09, 2018 13:01
--- NOTE | 2018-06-09 18:45 | Operative Note - Dictated ---
DATE OF OPERATION: 06/09/2018 NOTE: "POOR AUDIO QUALITY" GASTROENTEROLOGY PROCEDURE REPORT SURGEON: Suellen Baum M.D. PROCEDURE: Upper gastrointestinal endoscopy with epinephrine injection as well as BICAP cautery. ANESTHESIA: Please see the separate anesthesiologist's notes for details. PRE-ENDOSCOPIC DIAGNOSIS: Upper gastrointestinal bleeding. POST-ENDOSCOPIC DIAGNOSES: 1. Normal duodenum. 2. Large antrum ulcer measuring approximately 2 x 4 cm with large white base and no visible vessel and no active bleeding. 3. Two 6-7 mm ulcers in the fundus of the stomach with white base and no active bleeding. 4. Two [place] white lesions with some oozing of blood in the gastric high fundus, status post injection with 1 mL total of 1:10,000 epinephrine followed by BICAP gold probe cautery with good effect. 5. 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 No bleeding at the end of the procedure. 6. No esophageal varices. DESCRIPTION OF PROCEDURE: The procedure, its risks, indications, alternatives, and possible complications were explained and informed consent was obtained. The patient was then sedated in the supine position. A diagnostic upper endoscope was inserted in the oropharynx and advanced to the duodenum without difficulty. The endoscope was then gradually withdrawn and the mucosa examined carefully. Findings and treatments were as listed above. The endoscope was removed and the patient was sent to recovery in good condition. COMPLICATIONS: None. RECOMMENDATIONS: 1. Keep NPO today. 2. Continue proton-pump inhibitor. 3. Follow CBC and chemistry the next day. 4. Resume oral diet tomorrow if stable. 5. Check and treat Helicobacter pylori if positive . Suellen Baum M.D. DR: Anamaria JOB#: [id number] CC: [email or web address]
--- NOTE | 2018-06-09 21:13 | Cardiology Progress Note ---
Assessment/Plan Status: stable, progressing Assessment/Plan Assessment: (1) Episode of generalized weakness (2) Colitis (3) Bacteremia (4) Hypercalcemia (5) Diabetes (6) Lung Cancer (7) Supraventricular tachycardia Plan: Rate control with metoprolol 50 BID (hold for SBP <90) Monitor blood pressures, hold antihypertensive therapy IV fluids s/p EGD with hemostasis Transfuse PRBC IV iron Replete electrolytes if unstable will cardiovert in ICU Continue Abx per ID Outpatient stress test when stable Echo with preserved LV function, mild PAH, grade 2 diastolic dysfunction Subjective Cardiovascular: Reports: no symptoms Respiratory: Reports: no symptoms Gastrointestinal/Abdominal: Reports: abdominal pain, tarry stools, blood in stool Genitourinary: Reports: no symptoms Subjective Patient had tarry stools, EGD done showing gastric ulcer, he was transfused prbc and bolus ns for hypotension. He continues to be tachycardia, no chest pain Objective Last 24 Hour Vital Signs Date Time Temp Pulse Resp B/P (MAP) Pulse Ox O2 Delivery O2 Flow Rate FiO2 06/09/18 21:07 100 Nasal Cannula 2.0 28 06/09/18 21:07 Nasal Cannula 2.0 28 06/09/18 20:00 Room Air Room Air 06/09/18 20:00 125 24 126/66 (86) 100 06/09/18 19:00 98.7 121 23 126/66 (86) 100 06/09/18 18:00 123 24 121/73 (89) 100 06/09/18 17:00 119 28 138/68 (91) 100 06/09/18 16:00 116 06/09/18 16:00 Room Air 06/09/18 16:00 98.8 116 27 133/73 (93) 100 06/09/18 15:00 113 27 135/75 (95) 100 06/09/18 14:00 109 25 137/72 (93) 100 06/09/18 13:01 106 26 100 06/09/18 13:00 107 26 134/70 (91) 100 06/09/18 12:58 108 29 100 06/09/18 12:00 120 06/09/18 12:00 Room Air 06/09/18 12:00 98.4 116 28 106/56 (73) 100 06/09/18 11:32 115 25 119/64 (82) 06/09/18 11:30 116 28 103/63 (76) 06/09/18 11:00 114 28 111/59 (76) 06/09/18 10:30 123 17 106/60 (75) 100 06/09/18 10:16 116 26 105/62 (76) 100 06/09/18 10:00 114 24 113/62 (79) 100 06/09/18 09:00 98.4 120 25 79/52 (61) 06/09/18 09:00 123 106/60 06/09/18 08:30 119 25 95/71 (79) 06/09/18 08:00 124 26 96/61 (73) 100 06/09/18 08:00 118 06/09/18 08:00 Room Air 06/09/18 07:00 125 29 101/60 (74) 100 06/09/18 06:00 133 26 132/59 (83) 100 06/09/18 05:00 116 20 113/67 (82) 100 06/09/18 04:00 115 06/09/18 04:00 118 22 96/51 (66) 100 06/09/18 04:00 Room Air 06/09/18 03:00 119 22 129/57 (81) 100 06/09/18 02:00 98.7 124 27 103/70 (81) 100 06/09/18 01:00 136 19 124/65 (84) 99 06/09/18 00:24 107 25 116/60 (78) 99 06/09/18 00:00 107 26 116/60 (78) 99 06/09/18 00:00 109 06/09/18 00:00 Room Air 06/08/18 23:00 110 23 112/65 (81) 99 06/08/18 22:00 120 30 101/62 (75) 99 06/08/18 21:28 98.9 General Appearance: no apparent distress, alert EENT: PERRL/EOMI, normal ENT inspection, TMs normal, pharynx normal Neck: non-tender, normal alignment, supple, normal inspection, no JVD Rhythm: ST Cardiovascular: normal peripheral pulses, normal rate, tachycardia Respiratory/Chest: chest wall non-tender, lungs clear Abdomen: normal bowel sounds, non tender, hyperactive bowel sounds Extremities: normal range of motion, non-tender 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 Intake and Output 10/24/18 10/25/18 19:00 07:00 Intake Total 2055 ml 1160 ml Output Total 620 ml 20 ml Balance 1435 ml 1140 ml Intake Oral 340 ml 60 ml IV Total 1715 ml 1100 ml Output Urine Total 620 ml 20 ml # Bowel Movements 2 4 Laboratory Tests Test 06/09/18 05:50 White Blood Count 11.3 K/UL (4.8-10.8) H Red Blood Count 2.44 M/UL (4.70-6.10) L Hemoglobin 6.4 G/DL (14.2-18.0) *L Hematocrit 20.1 % (42.0-52.0) L Mean Corpuscular Volume 82 FL (80-99) Mean Corpuscular Hemoglobin 26.1 PG (27.0-31.0) L Mean Corpuscular Hemoglobin Concent 31.7 G/DL (32.0-36.0) L Red Cell Distribution Width 21.2 % (11.6-14.8) H Platelet Count 293 K/UL (150-450) Mean Platelet Volume 5.7 FL (6.5-10.1) L Neutrophils (%) (Auto) % (45.0-75.0) Lymphocytes (%) (Auto) % (20.0-45.0) Monocytes (%) (Auto) % (1.0-10.0) Eosinophils (%) (Auto) % (0.0-3.0) Basophils (%) (Auto) % (0.0-2.0) Differential Total Cells Counted 100 Neutrophils % (Manual) 83 % (45-75) H Lymphocytes % (Manual) 7 % (20-45) L Monocytes % (Manual) 10 % (1-10) Eosinophils % (Manual) 0 % (0-3) Basophils % (Manual) 0 % (0-2) Band Neutrophils 0 % (0-8) Platelet Estimate Adequate Platelet Morphology Normal Hypochromasia 2+ Anisocytosis 2+ [place] Cells 1+ Sodium Level 134 MMOL/L (136-145) L Potassium Level 3.7 MMOL/L (3.5-5.1) Chloride Level 103 MMOL/L (98-107) Carbon Dioxide Level 24 MMOL/L (21-32) Anion Gap 7 mmol/L (5-15) Blood Urea Nitrogen 24 mg/dL (7-18) H Creatinine 0.7 MG/DL (0.55-1.30) Estimat Glomerular Filtration Rate mL/min (>60) Glucose Level 130 MG/DL (74-106) H Calcium Level 9.9 MG/DL (8.5-10.1) Total Bilirubin 0.1 MG/DL (0.2-1.0) L Aspartate Amino Transf (AST/SGOT) 10 U/L (15-37) L Alanine Aminotransferase (ALT/SGPT) 7 U/L (12-78) L Alkaline Phosphatase 54 U/L (46-116) Total Protein 5.1 G/DL (6.4-8.2) L Albumin 2.0 G/DL (3.4-5.0) L Globulin 3.1 g/dL Albumin/Globulin Ratio 0.6 (1.0-2.7) L Navjot Moya MD Jun 09, 2018 21:13
[2018-06-09 21:56] LABS: HEMATOCRIT 26.7 % (42.0-52.0); HEMOGLOBIN 8.9 G/DL (14.2-18.0); MEAN CORPUSCULAR VOLUME 84 FL (80-99); PLATELET COUNT 307 K/UL (150-450); RED BLOOD COUNT 3.16 M/UL (4.70-6.10); RED CELL DISTRIBUTION WIDTH 17.5 % (11.6-14.8); WHITE BLOOD COUNT 16.7 K/UL (4.8-10.8)
[2018-06-09 22:01] LABS: BASOPHILS % (AUTO) 1.5 % (0.0-2.0); EOSINOPHILS % (AUTO) 0.2 % (0.0-3.0); LYMPHOCYTES % (AUTO) 4.3 % (20.0-45.0); MONOCYTES % (AUTO) 5.4 % (1.0-10.0); NEUTROPHILS % (AUTO) 88.5 % (45.0-75.0)
[2018-06-09] MEDS: Morphine Sulfate 2mg/ml Inj IVP PRN (22:25)
[2018-06-10] VITALS (24 sets, daily range): BP systolic 81–127; BP diastolic 42–66
[2018-06-10] MEDS: metroNIDAZOLE 500mg tab ORAL SCH ×3 (05:40→21:52)
[2018-06-10 06:04] LABS: HEMATOCRIT 26.5 % (42.0-52.0); HEMOGLOBIN 9.1 G/DL (14.2-18.0); MEAN CORPUSCULAR VOLUME 84 FL (80-99); PLATELET COUNT 315 K/UL (150-450); RED BLOOD COUNT 3.16 M/UL (4.70-6.10); RED CELL DISTRIBUTION WIDTH 18.3 % (11.6-14.8); WHITE BLOOD COUNT 15.5 K/UL (4.8-10.8)
[2018-06-10 06:26] LABS: ALANINE AMINOTRANSFERASE 14 U/L (12-78); ALBUMIN 2.1 G/DL (3.4-5.0); ALBUMIN/GLOBULIN RATIO 0.6 (1.0-2.7); ALKALINE PHOSPHATASE 59 U/L (46-116); ANION GAP 9 mmol/L (5-15); ASPARTATE AMINO TRANSFERASE 11 U/L (15-37); BILIRUBIN,TOTAL 0.6 MG/DL (0.2-1.0); BLOOD UREA NITROGEN 9 mg/dL (7-18); CALCIUM 10.1 MG/DL (8.5-10.1); CARBON DIOXIDE 25 MMOL/L (21-32); CHLORIDE 102 MMOL/L (98-107); CREATININE 0.7 MG/DL (0.55-1.30); POTASSIUM 3.5 MMOL/L (3.5-5.1); SODIUM 136 MMOL/L (136-145)
[2018-06-10] MEDS: Metoprolol Tartrate 50mg tab ORAL SCH (08:47)
[2018-06-10] MEDS: Heparin 5000 units/ml inj SUBQ SCH ×2 (09:00→20:36)
[2018-06-10] MEDS: Pantoprazole Inj IVP SCH ×2 (09:04→20:33)
[2018-06-10] MEDS: Midodrine 10mg tab ORAL SCH ×3 (09:04→17:56)
[2018-06-10] MEDS: D5 1/2NS w/KCl 20mEq 1,000 ML IV SCH ×2 (09:30→17:56)
--- NOTE | 2018-06-10 10:57 | Infectious Diseases Prog Note ---
Assessment/Plan Assessment/Plan A; Sepsis/SIRS Diarrhea Lung cancer Positive blood culture like contamination Cachexia Hypokalemia corrected GI bleeding Severe anemia SVT Stomach ulcers P; Continue Cipro & Flagyl Subjective ROS Limited/Unobtainable: Yes Gastrointestinal/Abdominal: Reports: other - had EGD yesterday Allergies: Coded Allergies: No Known Allergies (Unverified , 06/04/18) Objective Vital Signs Last 24 Hour Vital Signs Date Time Temp Pulse Resp B/P (MAP) Pulse Ox O2 Delivery O2 Flow Rate FiO2 06/10/18 09:00 137 32 105/62 (76) 99 06/10/18 08:47 137 86/69 06/10/18 08:00 98.8 132 28 93/52 (66) 95 06/10/18 08:00 Room Air Room Air 06/10/18 08:00 132 06/10/18 07:00 128 21 127/55 (79) 95 06/10/18 06:00 120 24 106/66 (79) 95 06/10/18 05:00 114 18 127/61 (83) 96 06/10/18 04:00 99.1 125 19 111/66 (81) 97 06/10/18 04:00 128 06/10/18 04:00 Room Air Room Air 06/10/18 03:00 128 18 81/42 (55) 94 06/10/18 02:00 133 18 99/49 (66) 94 06/10/18 01:00 120 19 112/58 (76) 97 06/10/18 00:00 121 26 101/60 (74) 96 06/10/18 00:00 Room Air Room Air 06/09/18 23:00 127 29 120/57 (78) 96 06/09/18 22:55 98.7 06/09/18 22:21 Room Air Room Air 06/09/18 22:00 132 34 115/62 (79) 96 06/09/18 21:07 100 Nasal Cannula 2.0 28 06/09/18 21:07 Nasal Cannula 2.0 28 06/09/18 21:00 125 99/65 06/09/18 21:00 130 26 116/68 (84) 100 06/09/18 20:00 132 06/09/18 20:00 Room Air Room Air 06/09/18 20:00 125 24 126/66 (86) 100 06/09/18 19:00 98.7 121 23 126/66 (86) 100 06/09/18 18:00 123 24 121/73 (89) 100 06/09/18 17:00 119 28 138/68 (91) 100 06/09/18 16:00 116 06/09/18 16:00 Room Air 06/09/18 16:00 98.8 116 27 133/73 (93) 100 06/09/18 15:00 113 27 135/75 (95) 100 06/09/18 14:00 109 25 137/72 (93) 100 06/09/18 13:01 106 26 100 06/09/18 13:00 107 26 134/70 (91) 100 06/09/18 12:58 108 29 100 06/09/18 12:00 120 06/09/18 12:00 Room Air 06/09/18 12:00 98.4 116 28 106/56 (73) 100 06/09/18 11:32 115 25 119/64 (82) 06/09/18 11:30 116 28 103/63 (76) 06/09/18 11:00 114 28 111/59 (76) Height (Feet): 5 Height (Inches): 11.00 Weight (Pounds): 59 General Appearance: cachetic HEENT: mucous membranes moist Respiratory/Chest: lungs clear Cardiovascular: tachycardia, other - port Abdomen: soft, non tender Extremities: no edema Neurologic/Psychiatric: other - sleeping Laboratory Tests Test 06/09/18 21:45 06/10/18 04:47 White Blood Count 16.7 K/UL (4.8-10.8) H 15.5 K/UL (4.8-10.8) H Red Blood Count 3.16 M/UL (4.70-6.10) L 3.16 M/UL (4.70-6.10) L Hemoglobin 8.9 G/DL (14.2-18.0) #L 9.1 G/DL (14.2-18.0) L Hematocrit 26.7 % (42.0-52.0) #L 26.5 % (42.0-52.0) L Mean Corpuscular Volume 84 FL (80-99) 84 FL (80-99) Mean Corpuscular Hemoglobin 28.2 PG (27.0-31.0) 28.6 PG (27.0-31.0) Mean Corpuscular Hemoglobin Concent 33.4 G/DL (32.0-36.0) 34.2 G/DL (32.0-36.0) Red Cell Distribution Width 17.5 % (11.6-14.8) H 18.3 % (11.6-14.8) H Platelet Count 307 K/UL (150-450) 315 K/UL (150-450) Mean Platelet Volume 5.2 FL (6.5-10.1) L 5.4 FL (6.5-10.1) L Neutrophils (%) (Auto) 88.5 % (45.0-75.0) H % (45.0-75.0) Lymphocytes (%) (Auto) 4.3 % (20.0-45.0) L % (20.0-45.0) Monocytes (%) (Auto) 5.4 % (1.0-10.0) % (1.0-10.0) Eosinophils (%) (Auto) 0.2 % (0.0-3.0) % (0.0-3.0) Basophils (%) (Auto) 1.5 % (0.0-2.0) % (0.0-2.0) Differential Total Cells Counted 100 Neutrophils % (Manual) 84 % (45-75) H Lymphocytes % (Manual) 10 % (20-45) L Monocytes % (Manual) 4 % (1-10) Eosinophils % (Manual) 2 % (0-3) Basophils % (Manual) 0 % (0-2) Band Neutrophils 0 % (0-8) Platelet Estimate Adequate Platelet Morphology Normal Anisocytosis 2+ [place] Cells 1+ Acanthocytes 1+ Sodium Level 136 MMOL/L (136-145) Potassium Level 3.5 MMOL/L (3.5-5.1) Chloride Level 102 MMOL/L (98-107) Carbon Dioxide Level 25 MMOL/L (21-32) Anion Gap 9 mmol/L (5-15) Blood Urea Nitrogen 9 mg/dL (7-18) Creatinine 0.7 MG/DL (0.55-1.30) Estimat Glomerular Filtration Rate mL/min (>60) Glucose Level 120 MG/DL (74-106) H Calcium Level 10.1 MG/DL (8.5-10.1) Total Bilirubin 0.6 MG/DL (0.2-1.0) Aspartate Amino Transf (AST/SGOT) 11 U/L (15-37) L Alanine Aminotransferase (ALT/SGPT) 14 U/L (12-78) Alkaline Phosphatase 59 U/L (46-116) Total Protein 5.5 G/DL (6.4-8.2) L Albumin 2.1 G/DL (3.4-5.0) L Globulin 3.4 g/dL Albumin/Globulin Ratio 0.6 (1.0-2.7) L Current Medications Medications (Trade) Dose Ordered Sig/Matthieu Route PRN Reason Start Time Stop Time Status Last Admin Dose Admin Chlorhexidine Gluconate (Crystal-Hex 2%) 1 applic DAILY@2000 TOPIC 06/10/18 20:00 07/10/18 19:59 Ciprofloxacin (Cipro 250mg tab) 250 mg EVERY 12 HOURS ORAL 06/08/18 21:00 06/11/18 20:59 06/10/18 09:04 Dextrose (Dextrose 50%) 25 ml Q30M PRN IV Hypoglycemia 06/08/18 11:00 07/08/18 10:59 Dextrose (Dextrose 50%) 50 ml Q30M PRN IV Hypoglycemia 06/08/18 11:00 07/08/18 10:59 Dextrose/ Electrolytes 1,000 ml @ 100 mls/hr Q10H IV 06/08/18 16:30 07/08/18 16:29 06/10/18 09:30 Heparin Sodium (Porcine) (Heparin 5000 units/ml) 5,000 units EVERY 12 HOURS SUBQ 06/08/18 21:00 07/04/18 20:59 06/08/18 20:37 Metoprolol Tartrate (Lopressor) 50 mg Q12HR ORAL 06/09/18 09:00 07/09/18 08:59 Metronidazole (Flagyl) 500 mg Q8HR ORAL 06/08/18 14:00 06/11/18 21:59 06/09/18 05:35 Midodrine (Pro-Amatine) 10 mg THREE TIMES A DAY ORAL 06/09/18 01:00 07/09/18 00:59 06/10/18 09:04 Morphine Sulfate (Morphine Sulfate) 2 mg Q3H PRN IVP Moderate Pain (Pain Scale 4-6) 06/08/18 11:00 06/11/18 10:59 06/09/18 22:25 Ondansetron HCl (Zofran) 4 mg Q6H PRN IVP Nausea & Vomiting 06/08/18 11:00 07/04/18 16:59 06/09/18 01:44 Pantoprazole (Protonix) 40 mg EVERY 12 HOURS IVP 06/08/18 22:45 07/08/18 22:44 06/10/18 09:04 Zolpidem Tartrate (Ambien) 5 mg HSPRN PRN ORAL Insomnia 06/08/18 21:00 06/15/18 20:59 Doug Cardona MD Jun 10, 2018 10:57
--- NOTE | 2018-06-10 11:09 | Cardiac Electrophysiology PN ---
Subjective Subjective EP consult dictated [id number] Recurrent SVT 170s 20 beats of fast non sustained VT DW Dr Moya Objective Last 24 Hour Vital Signs Date Time Temp Pulse Resp B/P (MAP) Pulse Ox O2 Delivery O2 Flow Rate FiO2 06/10/18 09:00 137 32 105/62 (76) 99 06/10/18 08:47 137 86/69 06/10/18 08:00 98.8 132 28 93/52 (66) 95 06/10/18 08:00 Room Air Room Air 06/10/18 08:00 132 06/10/18 07:00 128 21 127/55 (79) 95 06/10/18 06:00 120 24 106/66 (79) 95 06/10/18 05:00 114 18 127/61 (83) 96 06/10/18 04:00 99.1 125 19 111/66 (81) 97 06/10/18 04:00 128 06/10/18 04:00 Room Air Room Air 06/10/18 03:00 128 18 81/42 (55) 94 06/10/18 02:00 133 18 99/49 (66) 94 06/10/18 01:00 120 19 112/58 (76) 97 06/10/18 00:00 121 26 101/60 (74) 96 06/10/18 00:00 Room Air Room Air 06/09/18 23:00 127 29 120/57 (78) 96 06/09/18 22:55 98.7 06/09/18 22:21 Room Air Room Air 06/09/18 22:00 132 34 115/62 (79) 96 06/09/18 21:07 100 Nasal Cannula 2.0 28 06/09/18 21:07 Nasal Cannula 2.0 28 06/09/18 21:00 125 99/65 06/09/18 21:00 130 26 116/68 (84) 100 06/09/18 20:00 132 06/09/18 20:00 Room Air Room Air 06/09/18 20:00 125 24 126/66 (86) 100 06/09/18 19:00 98.7 121 23 126/66 (86) 100 06/09/18 18:00 123 24 121/73 (89) 100 06/09/18 17:00 119 28 138/68 (91) 100 06/09/18 16:00 116 06/09/18 16:00 Room Air 06/09/18 16:00 98.8 116 27 133/73 (93) 100 06/09/18 15:00 113 27 135/75 (95) 100 06/09/18 14:00 109 25 137/72 (93) 100 06/09/18 13:01 106 26 100 06/09/18 13:00 107 26 134/70 (91) 100 06/09/18 12:58 108 29 100 06/09/18 12:00 120 06/09/18 12:00 Room Air 06/09/18 12:00 98.4 116 28 106/56 (73) 100 06/09/18 11:32 115 25 119/64 (82) 06/09/18 11:30 116 28 103/63 (76) Intake and Output 06/09/18 06/10/18 18:59 06:59 Intake Total 600 ml 1800 ml Output Total 2900 ml Balance 600 ml -1100 ml IV Total 600 ml 1800 ml Output Urine Total 2900 ml # Bowel Movements 4 Laboratory Tests Test 06/09/18 21:45 06/10/18 04:47 White Blood Count 16.7 K/UL (4.8-10.8) H 15.5 K/UL (4.8-10.8) H Red Blood Count 3.16 M/UL (4.70-6.10) L 3.16 M/UL (4.70-6.10) L Hemoglobin 8.9 G/DL (14.2-18.0) #L 9.1 G/DL (14.2-18.0) L Hematocrit 26.7 % (42.0-52.0) #L 26.5 % (42.0-52.0) L Mean Corpuscular Volume 84 FL (80-99) 84 FL (80-99) Mean Corpuscular Hemoglobin 28.2 PG (27.0-31.0) 28.6 PG (27.0-31.0) Mean Corpuscular Hemoglobin Concent 33.4 G/DL (32.0-36.0) 34.2 G/DL (32.0-36.0) Red Cell Distribution Width 17.5 % (11.6-14.8) H 18.3 % (11.6-14.8) H Platelet Count 307 K/UL (150-450) 315 K/UL (150-450) Mean Platelet Volume 5.2 FL (6.5-10.1) L 5.4 FL (6.5-10.1) L Neutrophils (%) (Auto) 88.5 % (45.0-75.0) H % (45.0-75.0) Lymphocytes (%) (Auto) 4.3 % (20.0-45.0) L % (20.0-45.0) Monocytes (%) (Auto) 5.4 % (1.0-10.0) % (1.0-10.0) Eosinophils (%) (Auto) 0.2 % (0.0-3.0) % (0.0-3.0) Basophils (%) (Auto) 1.5 % (0.0-2.0) % (0.0-2.0) Differential Total Cells Counted 100 Neutrophils % (Manual) 84 % (45-75) H Lymphocytes % (Manual) 10 % (20-45) L Monocytes % (Manual) 4 % (1-10) Eosinophils % (Manual) 2 % (0-3) Basophils % (Manual) 0 % (0-2) Band Neutrophils 0 % (0-8) Platelet Estimate Adequate Platelet Morphology Normal Anisocytosis 2+ [place] Cells 1+ Acanthocytes 1+ Sodium Level 136 MMOL/L (136-145) Potassium Level 3.5 MMOL/L (3.5-5.1) Chloride Level 102 MMOL/L (98-107) Carbon Dioxide Level 25 MMOL/L (21-32) Anion Gap 9 mmol/L (5-15) Blood Urea Nitrogen 9 mg/dL (7-18) Creatinine 0.7 MG/DL (0.55-1.30) Estimat Glomerular Filtration Rate mL/min (>60) Glucose Level 120 MG/DL (74-106) H Calcium Level 10.1 MG/DL (8.5-10.1) Total Bilirubin 0.6 MG/DL (0.2-1.0) Aspartate Amino Transf (AST/SGOT) 11 U/L (15-37) L Alanine Aminotransferase (ALT/SGPT) 14 U/L (12-78) Alkaline Phosphatase 59 U/L (46-116) Total Protein 5.5 G/DL (6.4-8.2) L Albumin 2.1 G/DL (3.4-5.0) L Globulin 3.4 g/dL Albumin/Globulin Ratio 0.6 (1.0-2.7) L [place] Joshi MD Jun 10, 2018 11:09
[2018-06-10] MEDS ORDERED: Digoxin 0.5mg/2ml Inj IVP SCH ×2 (11:30→18:45)
--- NOTE | 2018-06-10 14:01 | General Progress Note ---
Assessment/Plan Problem List: (1) Episode of generalized weakness ICD Codes: R53.1 - Weakness SNOMED: 57602742 (2) Colitis ICD Codes: K52.9 - Noninfective gastroenteritis and colitis, unspecified SNOMED: 54700497 (3) Bacteremia ICD Codes: R78.81 - Bacteremia SNOMED: 3361660 (4) Hypercalcemia ICD Codes: E83.52 - Hypercalcemia SNOMED: 29909504 (5) Hypokalemia ICD Codes: E87.6 - Hypokalemia SNOMED: 22856503 (6) Anemia ICD Codes: D64.9 - Anemia, unspecified SNOMED: 497364136 (7) SVT (supraventricular tachycardia) ICD Codes: I47.1 - Supraventricular tachycardia SNOMED: 9473498 Assessment/Plan Discussed with dr Joshi rate control with digoxin follow labs Abxs Discussed with RN Subjective Allergies: Coded Allergies: No Known Allergies (Unverified , 06/04/18) Subjective All noted feels better Objective Last 24 Hour Vital Signs Date Time Temp Pulse Resp B/P (MAP) Pulse Ox O2 Delivery O2 Flow Rate FiO2 06/10/18 13:00 97.9 126 25 101/47 (65) 99 06/10/18 12:42 138 06/10/18 12:00 Room Air Room Air 06/10/18 12:00 136 28 108/51 (70) 96 06/10/18 12:00 127 06/10/18 11:00 127 24 114/48 (70) 97 06/10/18 10:00 130 30 118/58 (78) 98 06/10/18 09:00 137 32 105/62 (76) 99 06/10/18 08:47 137 86/69 06/10/18 08:00 98.8 132 28 93/52 (66) 95 06/10/18 08:00 Room Air Room Air 06/10/18 08:00 132 06/10/18 07:00 128 21 127/55 (79) 95 06/10/18 06:00 120 24 106/66 (79) 95 06/10/18 05:00 114 18 127/61 (83) 96 06/10/18 04:00 99.1 125 19 111/66 (81) 97 06/10/18 04:00 128 06/10/18 04:00 Room Air Room Air 06/10/18 03:00 128 18 81/42 (55) 94 06/10/18 02:00 133 18 99/49 (66) 94 06/10/18 01:00 120 19 112/58 (76) 97 06/10/18 00:00 121 26 101/60 (74) 96 06/10/18 00:00 Room Air Room Air 06/09/18 23:00 127 29 120/57 (78) 96 06/09/18 22:55 98.7 06/09/18 22:21 Room Air Room Air 06/09/18 22:00 132 34 115/62 (79) 96 06/09/18 21:07 100 Nasal Cannula 2.0 28 06/09/18 21:07 Nasal Cannula 2.0 28 06/09/18 21:00 125 99/65 06/09/18 21:00 130 26 116/68 (84) 100 06/09/18 20:00 132 06/09/18 20:00 Room Air Room Air 06/09/18 20:00 125 24 126/66 (86) 100 06/09/18 19:00 98.7 121 23 126/66 (86) 100 06/09/18 18:00 123 24 121/73 (89) 100 06/09/18 17:00 119 28 138/68 (91) 100 06/09/18 16:00 116 06/09/18 16:00 Room Air 06/09/18 16:00 98.8 116 27 133/73 (93) 100 06/09/18 15:00 113 27 135/75 (95) 100 06/09/18 14:00 109 25 137/72 (93) 100 Intake and Output 06/09/18 06/10/18 19:00 07:00 Intake Total 1200 ml 1300 ml Output Total 2935 ml Balance 1200 ml -1635 ml IV Total 1200 ml 1300 ml Output Urine Total 2935 ml # Bowel Movements 3 Laboratory Tests 06/09/18 21:45: White Blood Count 16.7H, Red Blood Count 3.16L, Hemoglobin 8.9#L, Hematocrit 26.7#L, Mean Corpuscular Volume 84, Mean Corpuscular Hemoglobin 28.2, Mean Corpuscular Hemoglobin Concent 33.4, Red Cell Distribution Width 17.5H, Platelet Count 307, Mean Platelet Volume 5.2L, Neutrophils (%) (Auto) 88.5H, Lymphocytes (%) (Auto) 4.3L, Monocytes (%) (Auto) 5.4, Eosinophils (%) (Auto) 0.2, Basophils (%) (Auto) 1.5 06/10/18 04:47: White Blood Count 15.5H, Red Blood Count 3.16L, Hemoglobin 9.1L, Hematocrit 26.5L, Mean Corpuscular Volume 84, Mean Corpuscular Hemoglobin 28.6, Mean Corpuscular Hemoglobin Concent 34.2, Red Cell Distribution Width 18.3H, Platelet Count 315, Mean Platelet Volume 5.4L, Neutrophils (%) (Auto) , Lymphocytes (%) (Auto) , Monocytes (%) (Auto) , Eosinophils (%) (Auto) , Basophils (%) (Auto) , Differential Total Cells Counted 100, Neutrophils % ( Manual) 84H, Lymphocytes % (Manual) 10L, Monocytes % (Manual) 4, Eosinophils % ( Manual) 2, Basophils % (Manual) 0, Band Neutrophils 0, Platelet Estimate Adequate, Platelet Morphology Normal, Anisocytosis 2+, [place] Cells 1+, Acanthocytes 1+, Sodium Level 136, Potassium Level 3.5, Chloride Level 102, Carbon Dioxide Level 25, Anion Gap 9, Blood Urea Nitrogen 9, Creatinine 0.7, Estimat Glomerular Filtration Rate , Glucose Level 120H, Calcium Level 10.1, Total Bilirubin 0.6, Aspartate Amino Transf (AST/SGOT) 11L, Alanine Aminotransferase (ALT/SGPT) 14, Alkaline Phosphatase 59, Total Protein 5.5L, Albumin 2.1L, Globulin 3.4, Albumin/Globulin Ratio 0.6L Height (Feet): 5 Height (Inches): 11.00 Weight (Pounds): 59 Cardiovascular: tachycardia Respiratory/Chest: lungs clear Edema: no edema noted Generalized Ronen Cardona MD Jun 10, 2018 14:01
--- NOTE | 2018-06-10 18:49 | General Progress Note ---
Assessment/Plan Assessment/Plan Assessment - large gastric ulcer - severe anemia / UGIB - abd pain- likely due to ulcer - SVT - dehydration - GILES - h/o lung CA, on chemo - malnutrition - poor px Recommendations - follow labs - advance diet - BID PPI - continue cipro and flagyl - RBC transfusion PRN Subjective Allergies: Coded Allergies: No Known Allergies (Unverified , 06/04/18) Subjective Seen in ICU doing better Hungry this am some abd pain huffman --> large bladder residual Objective Last 24 Hour Vital Signs Date Time Temp Pulse Resp B/P (MAP) Pulse Ox O2 Delivery O2 Flow Rate FiO2 06/10/18 18:00 137 18 108/64 (79) 98 06/10/18 17:00 128 20 93/52 (66) 95 06/10/18 16:00 Room Air Room Air 06/10/18 16:00 127 06/10/18 16:00 97.8 127 20 100/53 (69) 96 06/10/18 15:00 135 25 102/48 (66) 98 06/10/18 14:00 132 24 112/53 (72) 97 06/10/18 13:00 97.9 126 25 101/47 (65) 99 06/10/18 12:42 138 06/10/18 12:00 Room Air Room Air 06/10/18 12:00 136 28 108/51 (70) 96 06/10/18 12:00 127 06/10/18 11:00 127 24 114/48 (70) 97 06/10/18 10:00 130 30 118/58 (78) 98 06/10/18 09:00 137 32 105/62 (76) 99 06/10/18 08:47 137 86/69 06/10/18 08:00 98.8 132 28 93/52 (66) 95 06/10/18 08:00 Room Air Room Air 06/10/18 08:00 132 06/10/18 07:00 128 21 127/55 (79) 95 06/10/18 06:00 120 24 106/66 (79) 95 06/10/18 05:00 114 18 127/61 (83) 96 06/10/18 04:00 99.1 125 19 111/66 (81) 97 06/10/18 04:00 128 10/26/18 04:00 Room Air Room Air 06/10/18 03:00 128 18 81/42 (55) 94 06/10/18 02:00 133 18 99/49 (66) 94 06/10/18 01:00 120 19 112/58 (76) 97 06/10/18 00:00 121 26 101/60 (74) 96 06/10/18 00:00 Room Air Room Air 06/09/18 23:00 127 29 120/57 (78) 96 06/09/18 22:55 98.7 06/09/18 22:21 Room Air Room Air 06/09/18 22:00 132 34 115/62 (79) 96 06/09/18 21:07 100 Nasal Cannula 2.0 28 06/09/18 21:07 Nasal Cannula 2.0 28 06/09/18 21:00 125 99/65 06/09/18 21:00 130 26 116/68 (84) 100 06/09/18 20:00 132 06/09/18 20:00 Room Air Room Air 06/09/18 20:00 125 24 126/66 (86) 100 06/09/18 19:00 98.7 121 23 126/66 (86) 100 Intake and Output 06/09/18 06/10/18 19:00 07:00 Intake Total 1200 ml 1300 ml Output Total 2935 ml Balance 1200 ml -1635 ml IV Total 1200 ml 1300 ml Output Urine Total 2935 ml # Bowel Movements 3 Laboratory Tests 06/09/18 21:45: White Blood Count 16.7H, Red Blood Count 3.16L, Hemoglobin 8.9#L, Hematocrit 26.7#L, Mean Corpuscular Volume 84, Mean Corpuscular Hemoglobin 28.2, Mean Corpuscular Hemoglobin Concent 33.4, Red Cell Distribution Width 17.5H, Platelet Count 307, Mean Platelet Volume 5.2L, Neutrophils (%) (Auto) 88.5H, Lymphocytes (%) (Auto) 4.3L, Monocytes (%) (Auto) 5.4, Eosinophils (%) (Auto) 0.2, Basophils (%) (Auto) 1.5 06/10/18 04:47: White Blood Count 15.5H, Red Blood Count 3.16L, Hemoglobin 9.1L, Hematocrit 26.5L, Mean Corpuscular Volume 84, Mean Corpuscular Hemoglobin 28.6, Mean Corpuscular Hemoglobin Concent 34.2, Red Cell Distribution Width 18.3H, Platelet Count 315, Mean Platelet Volume 5.4L, Neutrophils (%) (Auto) , Lymphocytes (%) (Auto) , Monocytes (%) (Auto) , Eosinophils (%) (Auto) , Basophils (%) (Auto) , Differential Total Cells Counted 100, Neutrophils % ( Manual) 84H, Lymphocytes % (Manual) 10L, Monocytes % (Manual) 4, Eosinophils % ( Manual) 2, Basophils % (Manual) 0, Band Neutrophils 0, Platelet Estimate Adequate, Platelet Morphology Normal, Anisocytosis 2+, Bement Cells 1+, Acanthocytes 1+, Sodium Level 136, Potassium Level 3.5, Chloride Level 102, Carbon Dioxide Level 25, Anion Gap 9, Blood Urea Nitrogen 9, Creatinine 0.7, Estimat Glomerular Filtration Rate , Glucose Level 120H, Calcium Level 10.1, Total Bilirubin 0.6, Aspartate Amino Transf (AST/SGOT) 11L, Alanine Aminotransferase (ALT/SGPT) 14, Alkaline Phosphatase 59, Total Protein 5.5L, Albumin 2.1L, Globulin 3.4, Albumin/Globulin Ratio 0.6L Height (Feet): 5 Height (Inches): 11.00 Weight (Pounds): 59 Objective Thin AA man NCAT Supple CTA RRR abd soft no edema Suellen Baum MD Jun 10, 2018 18:49
[2018-06-10] MEDS: Dyna-Hex 2% Top Sol 2oz TOPIC SCH (20:33)
[2018-06-10] MEDS ORDERED: Metoprolol 25mg tab ORAL SCH (21:00)
--- NOTE | 2018-06-10 22:30 | Consultation ---
DATE OF CONSULTATION: 06/10/2018 CARDIAC ELECTROPHYSIOLOGY CONSULTATION CONSULTING PHYSICIAN: Lake Joshi M.D. ATTENDING PHYSICIAN: Ronen Cardona M.D. REFERRING PHYSICIAN: Navjot Moya M.D. REASON FOR CONSULTATION: Ventricular tachycardia as well as recurrent supraventricular tachycardia. HISTORY OF PRESENT ILLNESS: The patient is a 77-year-old gentleman with history of lung cancer, home-based chemotherapy, who presents to the emergency room with shortness of breath and was found to be in SVT, rate of 170 beats per minute. The patient received 6 and 12 mg of adenosine, but he converted then back again to supraventricular tachycardia. The patient was evaluated by Dr. Moya from Cardiology perspective and was started on metoprolol 50 mg b.i.d.. The patient however yesterday had ventricular tachycardia at rate of around 200 beats per minute that started while the patient was in sinus rhythm and ended when the patient was in sinus rhythm. Cardiac electrophysiology consultation was obtained for further evaluation and management. It is of note that the patient's echocardiogram showed ejection fraction of 50% to 55%. His chest x-ray showed a large tense on the left upper lobe central mass. His 12-lead EKG on 06/08/2018 at 8:50 a.m. showed supraventricular tachycardia at 175 beats per minute. REVIEW OF SYSTEMS: Negative other than what was mentioned in the history of present illness. PAST MEDICAL HISTORY: Includes: 1. Lung cancer. 2. Diabetes. 3. Hypercalcemia. 4. Recurrent supraventricular tachycardia. FAMILY HISTORY: Noncontributory. PHYSICAL EXAMINATION: VITAL SIGNS: Blood pressure was 186/69, pulse 130, respirations 18, and he is afebrile. HEAD AND NECK: Mild JVD. LUNGS: Decreased breath sounds. CARDIOVASCULAR: Tachycardic. S1, S2 with no gallop. ABDOMEN: Soft. SKIN: He has port in the right chest. EXTREMITIES: He had no pitting edema. LABORATORY AND DIAGNOSTIC DATA: His labs show white count of 15.5, hemoglobin 9.1, hematocrit on 06/09/2018, and the platelet count is 315,000. Sodium is 136, potassium is 3.5, BUN of 9, creatinine 0.7, and glucose of 120. ASSESSMENT AND PLAN: 1. A 120 beats of ventricular tachycardia. The patient has normal left ventricular systolic function. We will completely rule out IA protocol. The patient is already on metoprolol, but however, he has been unable to get it because of blood pressure running in the 80s and 90s. I will continue the patient on metoprolol, but decrease dose to 25 mg b.i.d. The patient is also on midodrine 10 mg three times daily if he has elevated blood pressure. I will digitalize the patient in terms of the SVT. 2. Recurrent SVT despite adenosine 6 and 12 mg. The patient is not in the condition to undergo electrophysiology study at this point. We will maximize beta-suzan and digoxin as needed and may need to start the patient on amiodarone for suppression of his arrhythmia. 3. Sepsis, on IV antibiotic per Dr. Doug Cardona. 4. Lung cancer. 5. Hypokalemia, which was corrected. 6. Severe anemia, status post EGD and blood transfusion. Thank you very much, Dr. Moya and Dr. Cardona, for allowing me to participate in the care of this patient. Please do not hesitate to contact me for any questions regarding my evaluation. Lake Joshi M.D. DR: KATERINE JOB#: [id number] CC:
[2018-06-11] VITALS (24 sets, daily range): BP systolic 90–129; BP diastolic 41–74
[2018-06-11] MEDS: D5 1/2NS w/KCl 20mEq 1,000 ML IV SCH ×2 (03:47→14:13)
[2018-06-11] MEDS: metroNIDAZOLE 500mg tab ORAL SCH ×2 (05:28→13:01)
--- NOTE | 2018-06-11 08:47 | General Progress Note ---
Assessment/Plan Assessment/Plan Assessment - large gastric ulcer - severe anemia / UGIB - abd pain- likely due to ulcer - SVT - dehydration - GILES - h/o lung CA, on chemo - malnutrition - poor px Recommendations - follow labs -soft diet - BID PPI - continue cipro and flagyl - RBC transfusion PRN Subjective ROS Limited/Unobtainable: Yes Allergies: Coded Allergies: No Known Allergies (Unverified , 06/04/18) Objective Last 24 Hour Vital Signs Date Time Temp Pulse Resp B/P (MAP) Pulse Ox O2 Delivery O2 Flow Rate FiO2 06/11/18 07:28 100 Nasal Cannula 2.0 28 06/11/18 07:28 Nasal Cannula 2.0 28 06/11/18 06:00 130 25 119/57 (77) 98 06/11/18 05:00 124 25 101/58 (72) 98 06/11/18 04:00 124 06/11/18 04:00 Room Air Room Air 06/11/18 04:00 100.0 124 24 114/54 (74) 95 06/11/18 03:00 120 24 96/46 (63) 94 06/11/18 02:00 126 22 93/47 (62) 94 06/11/18 01:00 126 26 95/48 (64) 95 06/11/18 00:00 114 06/11/18 00:00 100.2 114 26 99/41 (60) 95 06/11/18 00:00 Room Air Room Air 06/10/18 23:00 111 25 99/51 (67) 95 06/10/18 22:00 108 23 98/50 (66) 96 06/10/18 21:00 114 21 92/43 (59) 97 06/10/18 20:34 127 107/49 06/10/18 20:00 Room Air Room Air 06/10/18 20:00 123 27 107/49 (68) 94 06/10/18 20:00 123 06/10/18 19:00 126 06/10/18 19:00 98.2 132 28 121/53 (75) 96 06/10/18 18:00 137 18 108/64 (79) 98 06/10/18 17:00 128 20 93/52 (66) 95 06/10/18 16:00 Room Air Room Air 10/26/18 16:00 127 06/10/18 16:00 97.8 127 20 100/53 (69) 96 06/10/18 15:00 135 25 102/48 (66) 98 06/10/18 14:00 132 24 112/53 (72) 97 06/10/18 13:00 97.9 126 25 101/47 (65) 99 06/10/18 12:42 138 06/10/18 12:00 Room Air Room Air 06/10/18 12:00 136 28 108/51 (70) 96 06/10/18 12:00 127 06/10/18 11:00 127 24 114/48 (70) 97 06/10/18 10:00 130 30 118/58 (78) 98 06/10/18 09:00 137 32 105/62 (76) 99 06/10/18 08:47 137 86/69 Intake and Output 06/10/18 06/11/18 19:00 07:00 Intake Total 2660 ml 1540 ml Output Total 2825 ml 2690 ml Balance -165 ml -1150 ml Intake Oral 1560 ml 540 ml IV Total 1100 ml 1000 ml Output Urine Total 2825 ml 2690 ml # Bowel Movements 2 3 Height (Feet): 5 Height (Inches): 11.00 Weight (Pounds): 59 General Appearance: alert EENT: normal ENT inspection Neck: supple Cardiovascular: normal rate Respiratory/Chest: decreased breath sounds Abdomen: normal bowel sounds, non tender, soft Extremities: non-tender Kristian Bo MD Jun 11, 2018 08:47
[2018-06-11] MEDS: Pantoprazole Inj IVP SCH ×2 (10:33→21:01)
[2018-06-11] MEDS: Midodrine 10mg tab ORAL SCH ×3 (10:34→18:24)
[2018-06-11] MEDS: Metoprolol 25mg tab ORAL SCH ×2 (10:35→21:01)
[2018-06-11] MEDS: Heparin 5000 units/ml inj SUBQ SCH ×2 (10:39→21:00)
--- NOTE | 2018-06-11 11:34 | Cardiac Electrophysiology PN ---
Assessment/Plan Assessment/Plan 1. 20 beats of nonsustained ventricular tachycardia. The patient has normal left ventricular systolic function. Ruled out for [place].On metoprolol 25 mg b.i.d. 2. Recurrent SVT despite adenosine 6 and 12 mg. The patient is not in the condition to undergo electrophysiology study at this point. Digitalized 0.75 iv. On Lopressor 25 bid. Get Dig level. 3. Sepsis, on IV antibiotic per Dr. Dogu Cardona. 4. Lung cancer. 5. Hypokalemia, which was corrected. 6. Severe anemia, status post EGD and blood transfusion. D WRN Subjective Subjective In Sinus tachycardia 120-130. Had 0.5 and again 0.25 iv Digoxin for SVTs yesterday. No VT overight. Objective Last 24 Hour Vital Signs Date Time Temp Pulse Resp B/P (MAP) Pulse Ox O2 Delivery O2 Flow Rate FiO2 06/11/18 10:35 135 90/55 06/11/18 10:34 135 06/11/18 08:00 Room Air Room Air 06/11/18 07:28 100 Nasal Cannula 2.0 28 06/11/18 07:28 Nasal Cannula 2.0 28 06/11/18 06:00 130 25 119/57 (77) 98 06/11/18 05:00 124 25 101/58 (72) 98 06/11/18 04:00 124 06/11/18 04:00 Room Air Room Air 06/11/18 04:00 100.0 124 24 114/54 (74) 95 06/11/18 03:00 120 24 96/46 (63) 94 06/11/18 02:00 126 22 93/47 (62) 94 06/11/18 01:00 126 26 95/48 (64) 95 06/11/18 00:00 114 06/11/18 00:00 100.2 114 26 99/41 (60) 95 06/11/18 00:00 Room Air Room Air 06/10/18 23:00 111 25 99/51 (67) 95 06/10/18 22:00 108 23 98/50 (66) 96 06/10/18 21:00 114 21 92/43 (59) 97 06/10/18 20:34 127 107/49 06/10/18 20:00 Room Air Room Air 06/10/18 20:00 123 27 107/49 (68) 94 06/10/18 20:00 123 06/10/18 19:00 126 06/10/18 19:00 98.2 132 28 121/53 (75) 96 06/10/18 18:00 137 18 108/64 (79) 98 06/10/18 17:00 128 20 93/52 (66) 95 06/10/18 16:00 Room Air Room Air 06/10/18 16:00 127 06/10/18 16:00 97.8 127 20 100/53 (69) 96 06/10/18 15:00 135 25 102/48 (66) 98 06/10/18 14:00 132 24 112/53 (72) 97 06/10/18 13:00 97.9 126 25 101/47 (65) 99 06/10/18 12:42 138 06/10/18 12:00 Room Air Room Air 06/10/18 12:00 136 28 108/51 (70) 96 06/10/18 12:00 127 Intake and Output 06/10/18 06/11/18 18:59 06:59 Intake Total 2660 ml 1640 ml Output Total 2685 ml 2865 ml Balance -25 ml -1225 ml Intake Oral 1560 ml 540 ml IV Total 1100 ml 1100 ml Output Urine Total 2685 ml 2865 ml # Bowel Movements 2 3 Objective HEAD AND NECK: Mild JVD. LUNGS: Decreased breath sounds. CARDIOVASCULAR: Tachycardic. S1, S2 with no gallop. ABDOMEN: Soft. SKIN: He has port in the right chest. EXTREMITIES: He had no pitting edema. Lake Joshi MD Jun 11, 2018 11:34
--- NOTE | 2018-06-11 13:51 | Physician Query ---
--------- THIS DOCUMENT IS A PERMANENT PART OF THE MEDICAL RECORD --------- PLEASE COMPLETE DOCUMENT BEFORE SIGNING Dear Dr. Cardona Date: 2017 Commercial Announcer/CDS Name: Fercho Romeo Commercial Announcer/CDS Phone No.: [phone] Exercise your independent professional judgment when responding to the query. Questions asked do not imply a particular answer is desired or expected. We greatly appreciate your clarification on this issue. CLINICAL DOCUMENTATION STATES: Progress notes includes "Cachexia", "Lung Cancer "[employer] 5d . Patient is admitted with sepsis. CLINICAL FINDINGS SHOW: BMI: 8.1, Lymphocytes: 7-10, Albumin: 2.1 ------> 2.5 Can you please select the most appropriate option for the above findings: a. Severity b. Type [ ] Mild [ ] Protein Malnutrition [ ] Moderate [ ] Protein/Calorie Malnutrition [ ] Severe Criteria: Mild to Moderate Malnutrition >Serum albumin 2.8 to 3.4 g/dL or Pre-albumin 5 to 7 mg/dl (3) >Inadequate nutritional intake (1, 2, 3, 4) >NPO > 5 days >Weight loss: 5% in 1 month or 7.5% in 3 months or 10% in 6 months (1,3,4) >BMI 16 to 18.4 or Weight <90 of ideal body weight (1,2,3,4) Criteria: Moderate to Severe Malnutrition >Serum Albumin < 2.8 g/dL (1,2) >Lymphocytes < 1500/uL (2) >Inadequate nutritional intake3 , high stress e.g. major trauma, sepsis, pancreatitis, bravo etc. >Decubitus ulcers (1,2) , skin breakdown(2), easy hair pluckability >Weight <80% standard for height (2) >Triceps skin fold <3 mm2 >Mid-arm muscle circumference <25 cm2 >Creatinine-height index <60% standard (2) [] Hypoalbuminemia [] Emancipated w/ Malnutrition [] Kwashiorkor (rare in [place]) [] Marasmus [] Other [] Unable to determine [] Not Applicable Condition Present on Admission: [ ] Yes [ ] No [ ] Unable to determine Please also document in your Progress Notes and/or Discharge Summary and indicate if the condition was present on admission. M.Brisa. References: 1 [facility] Board. (2007). Nutritional support strategy for protein -energy malnutrition in the elderly. Clinical Practice Guidelines. 2 Diogenes Silva (2011). Malnutrition and nutritional assessment. In Yonis Sepulveda (18th Ed.) Lanre's Principle of Internal Medicine ([id number]) [place], [place]: [facility] 3 Whit Chowdhury. (2001). Clinical Nutrition: Protein-energy malnutrition in the inpatient. [place] [employer] Journal, vol. 165 no. 10 (pp. 5715- 1345 ). 4 Brad Sorenson (2012). Geriactric Nutrition: Nutritional Issues in Older Adults. www.[employer] MTDD
--- NOTE | 2018-06-11 16:07 | Cardiology Progress Note ---
Assessment/Plan Status: stable, progressing Assessment/Plan Assessment: (1) Episode of generalized weakness (2) Colitis (3) Bacteremia (4) Hypercalcemia (5) Diabetes (6) Lung Cancer (7) Supraventricular tachycardia Plan: Rate control with metoprolol 50 BID (hold for SBP <90) Monitor blood pressures, hold antihypertensive therapy IV fluids s/p EGD with hemostasis Transfuse PRBC IV iron Replete electrolytes if unstable will cardiovert in ICU Continue Abx per ID Outpatient stress test when stable Echo with preserved LV function, mild PAH, grade 2 diastolic dysfunction Subjective Cardiovascular: Reports: no symptoms Respiratory: Reports: no symptoms Gastrointestinal/Abdominal: Reports: no symptoms Genitourinary: Reports: no symptoms Subjective Patient had tarry stools, EGD done showing gastric ulcer, he was transfused prbc and bolus ns for hypotension. He continues to be tachycardia, no chest pain Objective Last 24 Hour Vital Signs Date Time Temp Pulse Resp B/P (MAP) Pulse Ox O2 Delivery O2 Flow Rate FiO2 06/11/18 12:00 Room Air Room Air 06/11/18 12:00 98.6 136 26 94/54 (67) 94 06/11/18 12:00 130 06/11/18 11:00 134 25 97/56 (70) 95 06/11/18 10:35 135 90/55 06/11/18 10:34 135 06/11/18 10:00 132 27 90/55 (67) 96 06/11/18 09:00 132 27 108/60 (76) 94 06/11/18 08:00 138 27 100/52 (68) 97 06/11/18 08:00 Room Air Room Air 06/11/18 08:00 113 06/11/18 07:28 100 Nasal Cannula 2.0 28 06/11/18 07:28 Nasal Cannula 2.0 28 06/11/18 07:00 98.0 118 24 123/53 (76) 98 06/11/18 06:00 130 25 119/57 (77) 98 06/11/18 05:00 124 25 101/58 (72) 98 06/11/18 04:00 124 06/11/18 04:00 Room Air Room Air 06/11/18 04:00 100.0 124 24 114/54 (74) 95 06/11/18 03:00 120 24 96/46 (63) 94 06/11/18 02:00 126 22 93/47 (62) 94 06/11/18 01:00 126 26 95/48 (64) 95 06/11/18 00:00 114 06/11/18 00:00 100.2 114 26 99/41 (60) 95 06/11/18 00:00 Room Air Room Air 06/10/18 23:00 111 25 99/51 (67) 95 06/10/18 22:00 108 23 98/50 (66) 96 06/10/18 21:00 114 21 92/43 (59) 97 06/10/18 20:34 127 107/49 06/10/18 20:00 Room Air Room Air 06/10/18 20:00 123 27 107/49 (68) 94 06/10/18 20:00 123 06/10/18 19:00 126 06/10/18 19:00 98.2 132 28 121/53 (75) 96 06/10/18 18:00 137 18 108/64 (79) 98 06/10/18 17:00 128 20 93/52 (66) 95 General Appearance: no apparent distress, alert EENT: PERRL/EOMI, normal ENT inspection, TMs normal Neck: non-tender, normal alignment, supple, normal inspection, no JVD Rhythm: ST Cardiovascular: normal peripheral pulses, normal rate, regular rhythm, tachycardia Respiratory/Chest: chest wall non-tender, lungs clear Abdomen: normal bowel sounds, non tender Extremities: normal range of motion, non-tender Neurologic: case assembler II-XII grossly normal Intake and Output 06/10/18 06/11/18 18:59 06:59 Intake Total 2660 ml 1640 ml Output Total 2685 ml 2865 ml Balance -25 ml -1225 ml Intake Oral 1560 ml 540 ml IV Total 1100 ml 1100 ml Output Urine Total 2685 ml 2865 ml # Bowel Movements 2 3 Laboratory Tests Test 06/11/18 12:30 Digoxin Level 0.9 NG/ML (0.5-2.0) Navjot Moya MD Jun 11, 2018 16:07
--- NOTE | 2018-06-11 16:21 | Nephrology Progress Note ---
Assessment/Plan Assessment/Plan A/P 1. Nonsustained ventricular tachycardia. recurrent SVT despite medical management per cardiology until patient stable for electrophysiological study 2. Sepsis- broad spectrum IV antibiotic per Dr. Gilbert Cardona. 3. Hypokalemia- corrected. replace prn po 40 meq po x 1 4. Severe anemia, status post EGD and blood transfusion. per GI mgmt 5. Noninfective gastroenteritis and colitis resolved Subjective Date patient seen: Jun 11, 2018 Time patient seen: 16:09 ROS Limited/Unobtainable: No Constitutional: Reports: weakness Allergies: Coded Allergies: No Known Allergies (Unverified , 06/04/18) All Systems: reviewed and negative except above Subjective Patient feeling better. No current chest pain or palpitations Objective Last 24 Hour Vital Signs Date Time Temp Pulse Resp B/P (MAP) Pulse Ox O2 Delivery O2 Flow Rate FiO2 06/11/18 12:00 Room Air Room Air 06/11/18 12:00 98.6 136 26 94/54 (67) 94 06/11/18 12:00 130 06/11/18 11:00 134 25 97/56 (70) 95 06/11/18 10:35 135 90/55 06/11/18 10:34 135 06/11/18 10:00 132 27 90/55 (67) 96 06/11/18 09:00 132 27 108/60 (76) 94 06/11/18 08:00 138 27 100/52 (68) 97 06/11/18 08:00 Room Air Room Air 06/11/18 08:00 113 06/11/18 07:28 100 Nasal Cannula 2.0 28 06/11/18 07:28 Nasal Cannula 2.0 28 06/11/18 07:00 98.0 118 24 123/53 (76) 98 06/11/18 06:00 130 25 119/57 (77) 98 06/11/18 05:00 124 25 101/58 (72) 98 06/11/18 04:00 124 06/11/18 04:00 Room Air Room Air 06/11/18 04:00 100.0 124 24 114/54 (74) 95 06/11/18 03:00 120 24 96/46 (63) 94 06/11/18 02:00 126 22 93/47 (62) 94 10/27/18 01:00 126 26 95/48 (64) 95 06/11/18 00:00 114 06/11/18 00:00 100.2 114 26 99/41 (60) 95 06/11/18 00:00 Room Air Room Air 06/10/18 23:00 111 25 99/51 (67) 95 06/10/18 22:00 108 23 98/50 (66) 96 06/10/18 21:00 114 21 92/43 (59) 97 06/10/18 20:34 127 107/49 06/10/18 20:00 Room Air Room Air 06/10/18 20:00 123 27 107/49 (68) 94 06/10/18 20:00 123 06/10/18 19:00 126 06/10/18 19:00 98.2 132 28 121/53 (75) 96 06/10/18 18:00 137 18 108/64 (79) 98 06/10/18 17:00 128 20 93/52 (66) 95 Intake and Output 06/10/18 06/11/18 18:59 06:59 Intake Total 2660 ml 1640 ml Output Total 2685 ml 2865 ml Balance -25 ml -1225 ml Intake Oral 1560 ml 540 ml IV Total 1100 ml 1100 ml Output Urine Total 2685 ml 2865 ml # Bowel Movements 2 3 Laboratory Tests 06/11/18 12:30: Digoxin Level 0.9 Height (Feet): 5 Height (Inches): 11.00 Weight (Pounds): 60 General Appearance: no apparent distress, alert EENT: normal ENT inspection Neck: normal alignment, supple Cardiovascular: normal rate, regular rhythm Respiratory/Chest: lungs clear, normal breath sounds Abdomen: non tender, soft Edema: no edema noted Arm (L), no edema noted Arm (R), no edema noted Leg (L), no edema noted Leg (R), no edema noted Pedal (L), no edema noted Pedal (R), no edema noted Generalized Dima Pretty MD Jun 11, 2018 16:21
[2018-06-11] MEDS: Dyna-Hex 2% Top Sol 2oz TOPIC SCH (21:02)
[2018-06-12] VITALS (24 sets, daily range): BP systolic 96–123; BP diastolic 45–90
[2018-06-12] MEDS: D5 1/2NS w/KCl 20mEq 1,000 ML IV SCH (00:16)
[2018-06-12 05:14] LABS: EOSINOPHILS % (AUTO) 0.3 % (0.0-3.0); HEMATOCRIT 24.9 % (42.0-52.0); HEMOGLOBIN 8.2 G/DL (14.2-18.0); LYMPHOCYTES % (AUTO) 6.5 % (20.0-45.0); MEAN CORPUSCULAR VOLUME 85 FL (80-99); MONOCYTES % (AUTO) 9.1 % (1.0-10.0); NEUTROPHILS % (AUTO) 83.2 % (45.0-75.0); PLATELET COUNT 439 K/UL (150-450); RED BLOOD COUNT 2.93 M/UL (4.70-6.10); RED CELL DISTRIBUTION WIDTH 19.1 % (11.6-14.8)
[2018-06-12 05:29] LABS: ANION GAP 5 mmol/L (5-15); BLOOD UREA NITROGEN 5 mg/dL (7-18); CALCIUM 10.6 MG/DL (8.5-10.1); CARBON DIOXIDE 29 MMOL/L (21-32); CHLORIDE 99 MMOL/L (98-107); CREATININE 0.8 MG/DL (0.55-1.30); POTASSIUM 3.6 MMOL/L (3.5-5.1); SODIUM 133 MMOL/L (136-145)
--- NOTE | 2018-06-12 06:48 | Nephrology Progress Note ---
Assessment/Plan Assessment/Plan A/P 1. Nonsustained ventricular tachycardia. recurrent SVT. HR 150 currently medical management per cardiology until patient stable for electrophysiological study on digoxin 2. Sepsis- broad spectrum IV antibiotic per ID 3. Hypokalemia replace prn po 40 meq po x 1 this am 4. Severe anemia- status post EGD and blood transfusion. per GI mgmt 5. Noninfective gastroenteritis and colitis resolved Subjective Date patient seen: Jun 12, 2018 Time patient seen: 06:46 ROS Limited/Unobtainable: No Constitutional: Reports: weakness Allergies: Coded Allergies: No Known Allergies (Unverified , 06/04/18) Subjective Patient resting in no distress. HR back to 150 this am Objective Last 24 Hour Vital Signs Date Time Temp Pulse Resp B/P (MAP) Pulse Ox O2 Delivery O2 Flow Rate FiO2 06/12/18 06:00 127 26 99/57 (71) 95 06/12/18 05:00 117 26 114/78 (90) 94 06/12/18 04:00 107 06/12/18 04:00 Room Air Room Air 06/12/18 04:00 100.5 120 22 102/59 (73) 93 06/12/18 03:00 108 25 115/59 (77) 91 06/12/18 02:00 113 17 115/59 (77) 92 06/12/18 01:00 115 27 105/54 (71) 92 06/12/18 00:00 Room Air Room Air 06/12/18 00:00 100.0 113 29 108/56 (73) 92 06/12/18 00:00 110 06/11/18 23:00 115 21 111/55 (73) 94 06/11/18 22:00 107 27 101/55 (70) 94 06/11/18 21:01 112 110/50 06/11/18 21:00 117 29 93/53 (66) 91 06/11/18 20:00 Room Air Room Air 06/11/18 20:00 151 06/11/18 20:00 98.9 112 27 110/50 (70) 91 06/11/18 19:00 113 23 129/59 (82) 95 06/11/18 18:00 109 23 104/71 (82) 95 06/11/18 17:00 112 24 104/55 (71) 94 06/11/18 16:00 98.6 118 23 101/48 (65) 95 06/11/18 16:00 128 06/11/18 16:00 Room Air Room Air 06/11/18 15:00 128 23 93/74 (80) 95 06/11/18 14:00 135 30 110/55 (73) 96 06/11/18 13:00 138 29 94/54 (67) 95 06/11/18 12:00 Room Air Room Air 06/11/18 12:00 98.6 136 26 94/54 (67) 94 06/11/18 12:00 130 06/11/18 11:00 134 25 97/56 (70) 95 06/11/18 10:35 135 90/55 06/11/18 10:34 135 06/11/18 10:00 132 27 90/55 (67) 96 06/11/18 09:00 132 27 108/60 (76) 94 06/11/18 08:00 138 27 100/52 (68) 97 06/11/18 08:00 Room Air Room Air 06/11/18 08:00 113 06/11/18 07:28 100 Nasal Cannula 2.0 28 06/11/18 07:28 Nasal Cannula 2.0 28 06/11/18 07:00 98.0 118 24 123/53 (76) 98 Intake and Output 06/11/18 06/12/18 19:00 07:00 Intake Total 1590 ml 1000 ml Output Total 3045 ml 2750 ml Balance -1455 ml -1750 ml Intake Oral 790 ml IV Total 800 ml 1000 ml Output Urine Total 3045 ml 2750 ml Laboratory Tests 06/11/18 12:30: Digoxin Level 0.9 06/11/18 17:00: Potassium Level 3.2L 06/12/18 04:10: Potassium Level 3.6, White Blood Count 16.0H, Red Blood Count 2.93L, Hemoglobin 8.2L, Hematocrit 24.9L, Mean Corpuscular Volume 85, Mean Corpuscular Hemoglobin 28.2, Mean Corpuscular Hemoglobin Concent 33.1, Red Cell Distribution Width 19.1H, Platelet Count 439, Mean Platelet Volume 5.1L, Neutrophils (%) (Auto) 83.2H, Lymphocytes (%) (Auto) 6.5L, Monocytes (%) (Auto) 9.1, Eosinophils (%) ( Auto) 0.3, Basophils (%) (Auto) 1.0, Sodium Level 133L, Chloride Level 99, Carbon Dioxide Level 29, Anion Gap 5, Blood Urea Nitrogen 5L, Creatinine 0.8, Estimat Glomerular Filtration Rate , Glucose Level 112H, Calcium Level 10.6H Height (Feet): 5 Height (Inches): 11.00 Weight (Pounds): 60 General Appearance: no apparent distress, alert EENT: normal ENT inspection Neck: normal alignment, supple Cardiovascular: normal rate, tachycardia Respiratory/Chest: lungs clear, normal breath sounds Abdomen: non tender, soft Edema: no edema noted Arm (L), no edema noted Arm (R), no edema noted Leg (L), no edema noted Leg (R), no edema noted Pedal (L), no edema noted Pedal (R), no edema noted Generalized Dima Pretty MD Jun 12, 2018 06:47
--- NOTE | 2018-06-12 08:15 | General Progress Note ---
Assessment/Plan Assessment/Plan Assessment - large gastric ulcer - severe anemia / UGIB - abd pain- likely due to ulcer - SVT - dehydration - GILES - h/o lung CA, on chemo - malnutrition - poor px Recommendations - follow labs -soft diet - BID PPI - continue cipro and flagyl - RBC transfusion PRN -neg stool C.diff -consider adding imodium prn Subjective ROS Limited/Unobtainable: No Allergies: Coded Allergies: No Known Allergies (Unverified , 06/04/18) Objective Last 24 Hour Vital Signs Date Time Temp Pulse Resp B/P (MAP) Pulse Ox O2 Delivery O2 Flow Rate FiO2 06/12/18 07:43 Nasal Cannula 2.0 28 06/12/18 07:43 99 Nasal Cannula 2.0 28 06/12/18 07:00 134 31 101/57 (72) 94 06/12/18 06:00 127 26 99/57 (71) 95 06/12/18 05:00 117 26 114/78 (90) 94 06/12/18 04:00 107 06/12/18 04:00 Room Air Room Air 06/12/18 04:00 100.5 120 22 102/59 (73) 93 06/12/18 03:00 108 25 115/59 (77) 91 06/12/18 02:00 113 17 115/59 (77) 92 06/12/18 01:00 115 27 105/54 (71) 92 06/12/18 00:00 Room Air Room Air 06/12/18 00:00 100.0 113 29 108/56 (73) 92 06/12/18 00:00 110 06/11/18 23:00 115 21 111/55 (73) 94 06/11/18 22:00 107 27 101/55 (70) 94 06/11/18 21:01 112 110/50 06/11/18 21:00 117 29 93/53 (66) 91 06/11/18 20:00 Room Air Room Air 06/11/18 20:00 151 06/11/18 20:00 98.9 112 27 110/50 (70) 91 06/11/18 19:00 113 23 129/59 (82) 95 06/11/18 18:00 109 23 104/71 (82) 95 06/11/18 17:00 112 24 104/55 (71) 94 06/11/18 16:00 98.6 118 23 101/48 (65) 95 06/11/18 16:00 128 06/11/18 16:00 Room Air Room Air 06/11/18 15:00 128 23 93/74 (80) 95 06/11/18 14:00 135 30 110/55 (73) 96 06/11/18 13:00 138 29 94/54 (67) 95 06/11/18 12:00 Room Air Room Air 06/11/18 12:00 98.6 136 26 94/54 (67) 94 06/11/18 12:00 130 06/11/18 11:00 134 25 97/56 (70) 95 06/11/18 10:35 135 90/55 06/11/18 10:34 135 06/11/18 10:00 132 27 90/55 (67) 96 06/11/18 09:00 132 27 108/60 (76) 94 Intake and Output 06/11/18 06/12/18 19:00 07:00 Intake Total 1590 ml 1000 ml Output Total 3045 ml 3100 ml Balance -1455 ml -2100 ml Intake Oral 790 ml IV Total 800 ml 1000 ml Output Urine Total 3045 ml 3100 ml Laboratory Tests 06/11/18 12:30: Digoxin Level 0.9 06/11/18 17:00: Potassium Level 3.2L 06/12/18 04:10: Potassium Level 3.6, White Blood Count 16.0H, Red Blood Count 2.93L, Hemoglobin 8.2L, Hematocrit 24.9L, Mean Corpuscular Volume 85, Mean Corpuscular Hemoglobin 28.2, Mean Corpuscular Hemoglobin Concent 33.1, Red Cell Distribution Width 19.1H, Platelet Count 439, Mean Platelet Volume 5.1L, Neutrophils (%) (Auto) 83.2H, Lymphocytes (%) (Auto) 6.5L, Monocytes (%) (Auto) 9.1, Eosinophils (%) ( Auto) 0.3, Basophils (%) (Auto) 1.0, Sodium Level 133L, Chloride Level 99, Carbon Dioxide Level 29, Anion Gap 5, Blood Urea Nitrogen 5L, Creatinine 0.8, Estimat Glomerular Filtration Rate , Glucose Level 112H, Calcium Level 10.6H Height (Feet): 5 Height (Inches): 11.00 Weight (Pounds): 60 General Appearance: no apparent distress EENT: normal ENT inspection Neck: supple Cardiovascular: normal rate Respiratory/Chest: decreased breath sounds Abdomen: normal bowel sounds, non tender, soft Extremities: non-tender Kristian Bo MD Jun 12, 2018 08:15
[2018-06-12] MEDS: Pantoprazole Inj IVP SCH ×2 (08:50→21:06)
[2018-06-12] MEDS: Metoprolol 25mg tab ORAL SCH ×2 (08:52→21:07)
[2018-06-12] MEDS: Midodrine 10mg tab ORAL SCH ×3 (08:52→18:07)
[2018-06-12] MEDS: Heparin 5000 units/ml inj SUBQ SCH ×2 (08:53→21:09)
--- NOTE | 2018-06-12 14:04 | Infectious Diseases Prog Note ---
Assessment/Plan Assessment/Plan A; Sepsis/SIRS Diarrhea Lung cancer Positive blood culture like contamination Cachexia Hypokalemia corrected GI bleeding Severe anemia SVT Stomach ulcers Fever & Leukocytosis P; observe off antibiotic Subjective ROS Limited/Unobtainable: Yes Constitutional: Reports: fever, other - T uur=991.5 Gastrointestinal/Abdominal: Reports: other - epigastric pain Allergies: Coded Allergies: No Known Allergies (Unverified , 06/04/18) Objective Vital Signs Last 24 Hour Vital Signs Date Time Temp Pulse Resp B/P (MAP) Pulse Ox O2 Delivery O2 Flow Rate FiO2 06/12/18 12:50 122 06/12/18 12:00 120 24 103/60 (74) 97 06/12/18 12:00 Room Air Room Air 06/12/18 11:00 108 24 103/60 (74) 95 06/12/18 10:32 119 06/12/18 10:00 119 30 96/60 (72) 95 06/12/18 09:00 134 31 96/62 (73) 95 06/12/18 08:52 135 99/65 06/12/18 08:00 Room Air Room Air 06/12/18 08:00 99.2 135 32 99/65 (76) 94 06/12/18 07:43 Nasal Cannula 2.0 28 06/12/18 07:43 99 Nasal Cannula 2.0 28 06/12/18 07:00 134 31 101/57 (72) 94 06/12/18 06:00 127 26 99/57 (71) 95 06/12/18 05:00 117 26 114/78 (90) 94 06/12/18 04:00 107 06/12/18 04:00 Room Air Room Air 06/12/18 04:00 100.5 120 22 102/59 (73) 93 06/12/18 03:00 108 25 115/59 (77) 91 06/12/18 02:00 113 17 115/59 (77) 92 06/12/18 01:00 115 27 105/54 (71) 92 06/12/18 00:00 Room Air Room Air 06/12/18 00:00 100.0 113 29 108/56 (73) 92 06/12/18 00:00 110 06/11/18 23:00 115 21 111/55 (73) 94 06/11/18 22:00 107 27 101/55 (70) 94 06/11/18 21:01 112 110/50 06/11/18 21:00 117 29 93/53 (66) 91 06/11/18 20:00 Room Air Room Air 06/11/18 20:00 151 06/11/18 20:00 98.9 112 27 110/50 (70) 91 06/11/18 19:00 113 23 129/59 (82) 95 06/11/18 18:00 109 23 104/71 (82) 95 06/11/18 17:00 112 24 104/55 (71) 94 06/11/18 16:00 98.6 118 23 101/48 (65) 95 06/11/18 16:00 128 06/11/18 16:00 Room Air Room Air 06/11/18 15:00 128 23 93/74 (80) 95 Height (Feet): 5 Height (Inches): 11.00 Weight (Pounds): 60 General Appearance: cachetic HEENT: mucous membranes moist Respiratory/Chest: lungs clear Cardiovascular: tachycardia, other - port Abdomen: soft, non tender Extremities: no edema Neurologic/Psychiatric: alert, responsive Laboratory Tests Test 06/11/18 17:00 06/12/18 04:10 Potassium Level 3.2 MMOL/L (3.5-5.1) L 3.6 MMOL/L (3.5-5.1) White Blood Count 16.0 K/UL (4.8-10.8) H Red Blood Count 2.93 M/UL (4.70-6.10) L Hemoglobin 8.2 G/DL (14.2-18.0) L Hematocrit 24.9 % (42.0-52.0) L Mean Corpuscular Volume 85 FL (80-99) Mean Corpuscular Hemoglobin 28.2 PG (27.0-31.0) Mean Corpuscular Hemoglobin Concent 33.1 G/DL (32.0-36.0) Red Cell Distribution Width 19.1 % (11.6-14.8) H Platelet Count 439 K/UL (150-450) Mean Platelet Volume 5.1 FL (6.5-10.1) L Neutrophils (%) (Auto) 83.2 % (45.0-75.0) H Lymphocytes (%) (Auto) 6.5 % (20.0-45.0) L Monocytes (%) (Auto) 9.1 % (1.0-10.0) Eosinophils (%) (Auto) 0.3 % (0.0-3.0) Basophils (%) (Auto) 1.0 % (0.0-2.0) Sodium Level 133 MMOL/L (136-145) L Chloride Level 99 MMOL/L (98-107) Carbon Dioxide Level 29 MMOL/L (21-32) Anion Gap 5 mmol/L (5-15) Blood Urea Nitrogen 5 mg/dL (7-18) L Creatinine 0.8 MG/DL (0.55-1.30) Estimat Glomerular Filtration Rate mL/min (>60) Glucose Level 112 MG/DL (74-106) H Calcium Level 10.6 MG/DL (8.5-10.1) H Digoxin Level 0.7 NG/ML (0.5-2.0) Current Medications Medications (Trade) Dose Ordered Sig/Matthieu Route PRN Reason Start Time Stop Time Status Last Admin Dose Admin Chlorhexidine Gluconate (Crystal-Hex 2%) 1 applic DAILY@2000 TOPIC 06/10/18 20:00 07/10/18 19:59 06/11/18 21:02 Dextrose (Dextrose 50%) 25 ml Q30M PRN IV Hypoglycemia 06/08/18 11:00 07/08/18 10:59 Dextrose (Dextrose 50%) 50 ml Q30M PRN IV Hypoglycemia 06/08/18 11:00 07/08/18 10:59 Dextrose/ Electrolytes 1,000 ml @ 75 mls/hr [id number] IV 06/12/18 07:30 07/12/18 07:29 06/12/18 08:51 Digoxin (Lanoxin) 0.25 mg DAILY ORAL 06/11/18 09:00 07/11/18 08:59 06/12/18 10:32 Heparin Sodium (Porcine) (Heparin 5000 units/ml) 5,000 units EVERY 12 HOURS SUBQ 06/08/18 21:00 07/04/18 20:59 06/11/18 10:39 Metoprolol Tartrate (Lopressor) 25 mg Q12HR ORAL 06/11/18 09:00 07/09/18 08:59 06/12/18 08:52 Midodrine (Pro-Amatine) 10 mg THREE TIMES A DAY ORAL 06/09/18 01:00 07/09/18 00:59 06/12/18 12:50 Morphine Sulfate (Morphine Sulfate) 2 mg Q3H PRN IVP For Pain 06/11/18 20:30 06/18/18 20:29 Ondansetron HCl (Zofran) 4 mg Q6H PRN IVP Nausea & Vomiting 06/08/18 11:00 07/04/18 16:59 06/09/18 01:44 Pantoprazole (Protonix) 40 mg EVERY 12 HOURS IVP 06/08/18 22:45 07/08/18 22:44 06/12/18 08:50 Zolpidem Tartrate (Ambien) 5 mg HSPRN PRN ORAL Insomnia 06/08/18 21:00 06/15/18 20:59 Doug Cardona MD Jun 12, 2018 14:04
[2018-06-12] MEDS: Morphine Sulfate 2mg/ml Inj IVP PRN (18:15)
[2018-06-12] MEDS: Dyna-Hex 2% Top Sol 2oz TOPIC SCH (20:11)
--- NOTE | 2018-06-12 22:30 | Cardiology Progress Note ---
Assessment/Plan Status: stable Assessment/Plan Assessment: (1) Episode of generalized weakness (2) Colitis (3) Bacteremia (4) Hypercalcemia (5) Diabetes (6) Lung Cancer (7) Supraventricular tachycardia Plan: Rate control with metoprolol 100 BID (hold for SBP <90) and digoxin 0.25 Monitor blood pressures, hold antihypertensive therapy IV fluids s/p EGD with hemostasis Transfused PRBC IV iron Replete electrolytes Outpatient stress test when stable Echo with preserved LV function, mild PAH, grade 2 diastolic dysfunction Subjective Cardiovascular: Reports: no symptoms Respiratory: Reports: no symptoms Gastrointestinal/Abdominal: Reports: no symptoms Genitourinary: Reports: no symptoms Subjective Patient stable in ICU, no acute evens, no complaints, remains tachycardic. Objective Last 24 Hour Vital Signs Date Time Temp Pulse Resp B/P (MAP) Pulse Ox O2 Delivery O2 Flow Rate FiO2 06/12/18 21:07 116 110/61 06/12/18 20:00 123 06/12/18 20:00 99.2 122 26 113/58 (76) 98 06/12/18 20:00 Room Air Room Air 06/12/18 19:00 121 26 113/59 (77) 99 06/12/18 18:00 116 26 111/62 (78) 99 06/12/18 17:00 114 29 122/45 (70) 99 06/12/18 16:00 Room Air Room Air 06/12/18 16:00 104 06/12/18 16:00 99.0 112 25 107/70 (82) 98 06/12/18 15:00 115 29 109/62 (78) 100 06/12/18 14:00 112 29 104/61 (75) 100 06/12/18 13:00 99.9 109 29 118/90 (99) 99 06/12/18 12:50 122 06/12/18 12:00 120 24 103/60 (74) 97 06/12/18 12:00 Room Air Room Air 06/12/18 12:00 112 06/12/18 11:00 108 24 103/60 (74) 95 06/12/18 10:32 119 06/12/18 10:00 119 30 96/60 (72) 95 06/12/18 09:00 134 31 96/62 (73) 95 06/12/18 08:52 135 99/65 06/12/18 08:00 Room Air Room Air 06/12/18 08:00 99.2 135 32 99/65 (76) 94 06/12/18 08:00 131 06/12/18 07:43 Nasal Cannula 2.0 28 06/12/18 07:43 99 Nasal Cannula 2.0 28 06/12/18 07:00 134 31 101/57 (72) 94 06/12/18 06:00 127 26 99/57 (71) 95 06/12/18 05:00 117 26 114/78 (90) 94 06/12/18 04:00 107 06/12/18 04:00 Room Air Room Air 06/12/18 04:00 100.5 120 22 102/59 (73) 93 06/12/18 03:00 108 25 115/59 (77) 91 06/12/18 02:00 113 17 115/59 (77) 92 06/12/18 01:00 115 27 105/54 (71) 92 06/12/18 00:00 Room Air Room Air 06/12/18 00:00 100.0 113 29 108/56 (73) 92 06/12/18 00:00 110 06/11/18 23:00 115 21 111/55 (73) 94 General Appearance: no apparent distress, alert EENT: PERRL/EOMI, normal ENT inspection, TMs normal, pharynx normal Neck: non-tender, normal alignment, supple, normal inspection, no JVD Rhythm: ST Cardiovascular: normal peripheral pulses, normal rate, tachycardia Respiratory/Chest: chest wall non-tender, lungs clear, normal breath sounds, no respiratory distress, no accessory muscle use Abdomen: non tender, soft, no organomegaly, no mass Extremities: normal range of motion, non-tender Intake and Output 06/11/18 06/12/18 19:00 07:00 Intake Total 1590 ml 1000 ml Output Total 3045 ml 3100 ml Balance -1455 ml -2100 ml Intake Oral 790 ml IV Total 800 ml 1000 ml Output Urine Total 3045 ml 3100 ml Laboratory Tests Test 06/12/18 04:10 White Blood Count 16.0 K/UL (4.8-10.8) H Red Blood Count 2.93 M/UL (4.70-6.10) L Hemoglobin 8.2 G/DL (14.2-18.0) L Hematocrit 24.9 % (42.0-52.0) L Mean Corpuscular Volume 85 FL (80-99) Mean Corpuscular Hemoglobin 28.2 PG (27.0-31.0) Mean Corpuscular Hemoglobin Concent 33.1 G/DL (32.0-36.0) Red Cell Distribution Width 19.1 % (11.6-14.8) H Platelet Count 439 K/UL (150-450) Mean Platelet Volume 5.1 FL (6.5-10.1) L Neutrophils (%) (Auto) 83.2 % (45.0-75.0) H Lymphocytes (%) (Auto) 6.5 % (20.0-45.0) L Monocytes (%) (Auto) 9.1 % (1.0-10.0) Eosinophils (%) (Auto) 0.3 % (0.0-3.0) Basophils (%) (Auto) 1.0 % (0.0-2.0) Sodium Level 133 MMOL/L (136-145) L Potassium Level 3.6 MMOL/L (3.5-5.1) Chloride Level 99 MMOL/L (98-107) Carbon Dioxide Level 29 MMOL/L (21-32) Anion Gap 5 mmol/L (5-15) Blood Urea Nitrogen 5 mg/dL (7-18) L Creatinine 0.8 MG/DL (0.55-1.30) Estimat Glomerular Filtration Rate mL/min (>60) Glucose Level 112 MG/DL (74-106) H Calcium Level 10.6 MG/DL (8.5-10.1) H Digoxin Level 0.7 NG/ML (0.5-2.0) Navjot Moya MD Jun 12, 2018 22:30
[2018-06-13] VITALS (25 sets, daily range): BP systolic 106–165; BP diastolic 45–89
[2018-06-13] MEDS: Morphine Sulfate 2mg/ml Inj IVP PRN (05:32)
[2018-06-13 06:09] LABS: BASOPHILS % (AUTO) 2.1 % (0.0-2.0); EOSINOPHILS % (AUTO) 0.7 % (0.0-3.0); HEMATOCRIT 27.5 % (42.0-52.0); HEMOGLOBIN 8.9 G/DL (14.2-18.0); LYMPHOCYTES % (AUTO) 12.9 % (20.0-45.0); MEAN CORPUSCULAR VOLUME 86 FL (80-99); MONOCYTES % (AUTO) 6.2 % (1.0-10.0); NEUTROPHILS % (AUTO) 78.1 % (45.0-75.0); PLATELET COUNT 502 K/UL (150-450); RED BLOOD COUNT 3.19 M/UL (4.70-6.10); RED CELL DISTRIBUTION WIDTH 19.7 % (11.6-14.8); WHITE BLOOD COUNT 14.1 K/UL (4.8-10.8)
[2018-06-13 06:28] LABS: ANION GAP 5 mmol/L (5-15); BLOOD UREA NITROGEN 7 mg/dL (7-18); CALCIUM 10.9 MG/DL (8.5-10.1); CARBON DIOXIDE 28 MMOL/L (21-32); CHLORIDE 98 MMOL/L (98-107); CREATININE 0.7 MG/DL (0.55-1.30); POTASSIUM 4.1 MMOL/L (3.5-5.1); SODIUM 131 MMOL/L (136-145)
[2018-06-13] MEDS: Pantoprazole Inj IVP SCH ×2 (08:37→20:54)
[2018-06-13] MEDS: Midodrine 10mg tab ORAL SCH ×3 (08:38→18:00)
[2018-06-13] MEDS: Heparin 5000 units/ml inj SUBQ SCH ×2 (08:39→20:59)
--- NOTE | 2018-06-13 11:56 | General Progress Note ---
Assessment/Plan Assessment/Plan Assessment - large gastric ulcer - severe anemia / UGIB - improving - abd pain- likely due to ulcer - SVT - dehydration - GILES - h/o lung CA, on chemo - malnutrition - poor px Recommendations - follow labs - PO diet at tolerated - add carafate QID - check CT abd / pelvis - BID PPI - RBC transfusion PRN Subjective Allergies: Coded Allergies: No Known Allergies (Unverified , 06/04/18) Subjective Seen in ICU c/o abd pain po intake suboptimal per RN one mucoid stool yesterday Objective Last 24 Hour Vital Signs Date Time Temp Pulse Resp B/P (MAP) Pulse Ox O2 Delivery O2 Flow Rate FiO2 06/13/18 11:00 102 23 126/69 (88) 99 06/13/18 10:00 112 22 114/66 (82) 100 06/13/18 09:00 126 30 132/73 (92) 97 06/13/18 08:38 130 108/62 06/13/18 08:38 127 06/13/18 08:00 98.4 111 24 108/62 (77) 96 06/13/18 08:00 Room Air Room Air 06/13/18 08:00 129 06/13/18 07:30 96 Room Air 21 06/13/18 07:30 Room Air 21 06/13/18 07:00 112 20 132/73 (92) 97 06/13/18 06:00 114 20 113/63 (80) 97 06/13/18 05:00 120 21 126/45 (72) 97 06/13/18 04:00 Room Air Room Air 06/13/18 04:00 99.0 115 21 126/45 (72) 97 06/13/18 04:00 114 06/13/18 03:00 119 28 121/63 (82) 98 06/13/18 02:00 111 26 109/60 (76) 98 06/13/18 01:00 106 18 114/61 (78) 98 06/13/18 00:00 113 06/13/18 00:00 90 28 109/60 (76) 98 06/13/18 00:00 Room Air Room Air 06/12/18 23:00 96 28 109/61 (77) 98 06/12/18 22:00 123 28 115/58 (77) 98 06/12/18 21:07 116 110/61 10/28/18 21:00 123 26 123/58 (79) 98 06/12/18 20:00 123 06/12/18 20:00 99.2 122 26 113/58 (76) 98 06/12/18 20:00 Room Air Room Air 06/12/18 19:00 121 26 113/59 (77) 99 06/12/18 18:00 116 26 111/62 (78) 99 06/12/18 17:00 114 29 122/45 (70) 99 06/12/18 16:00 Room Air Room Air 06/12/18 16:00 104 06/12/18 16:00 99.0 112 25 107/70 (82) 98 06/12/18 15:00 115 29 109/62 (78) 100 06/12/18 14:00 112 29 104/61 (75) 100 06/12/18 13:00 99.9 109 29 118/90 (99) 99 06/12/18 12:50 122 06/12/18 12:00 120 24 103/60 (74) 97 06/12/18 12:00 Room Air Room Air 06/12/18 12:00 112 Intake and Output 06/12/18 06/13/18 19:00 07:00 Intake Total 1630 ml 1050 ml Output Total 2975 ml 2290 ml Balance -1345 ml -1240 ml Intake Oral 880 ml 300 ml IV Total 750 ml 750 ml Output Urine Total 2975 ml 2290 ml # Bowel Movements 1 Laboratory Tests 06/13/18 05:01: White Blood Count 14.1H, Red Blood Count 3.19L, Hemoglobin 8.9L, Hematocrit 27.5L, Mean Corpuscular Volume 86, Mean Corpuscular Hemoglobin 27.8, Mean Corpuscular Hemoglobin Concent 32.2, Red Cell Distribution Width 19.7H, Platelet Count 502H, Mean Platelet Volume 4.8L, Neutrophils (%) (Auto) 78.1H, Lymphocytes (%) (Auto) 12.9L, Monocytes (%) (Auto) 6.2, Eosinophils (%) (Auto) 0.7, Basophils (%) (Auto) 2.1H, Sodium Level 131L, Potassium Level 4.1, Chloride Level 98, Carbon Dioxide Level 28, Anion Gap 5, Blood Urea Nitrogen 7, Creatinine 0.7, Estimat Glomerular Filtration Rate , Glucose Level 106, Calcium Level 10.9H Height (Feet): 5 Height (Inches): 11.00 Weight (Pounds): 60 Objective Thin AA man NCAT Supple CTA RRR abd soft no edema Suellen Baum MD Jun 13, 2018 11:56
[2018-06-13] MEDS ORDERED: Isovue-300 100ml vial INJ PRN ×2 (12:00→15:00)
--- NOTE | 2018-06-13 12:04 | Infectious Diseases Prog Note ---
Assessment/Plan Assessment/Plan A; Sepsis/SIRS Diarrhea Lung cancer Positive blood culture like contamination Cachexia Hypokalemia corrected GI bleeding Severe anemia SVT Stomach ulcers Fever & Leukocytosis P; observe off antibiotic Will f/u CT scan of abdomen & CXR Subjective ROS Limited/Unobtainable: Yes Allergies: Coded Allergies: No Known Allergies (Unverified , 06/04/18) Objective Vital Signs Last 24 Hour Vital Signs Date Time Temp Pulse Resp B/P (MAP) Pulse Ox O2 Delivery O2 Flow Rate FiO2 06/13/18 11:00 102 23 126/69 (88) 99 06/13/18 10:00 112 22 114/66 (82) 100 06/13/18 09:00 126 30 132/73 (92) 97 06/13/18 08:38 130 108/62 06/13/18 08:38 127 06/13/18 08:00 98.4 111 24 108/62 (77) 96 06/13/18 08:00 Room Air Room Air 06/13/18 08:00 129 06/13/18 07:30 96 Room Air 21 06/13/18 07:30 Room Air 21 06/13/18 07:00 112 20 132/73 (92) 97 06/13/18 06:00 114 20 113/63 (80) 97 06/13/18 05:00 120 21 126/45 (72) 97 06/13/18 04:00 Room Air Room Air 06/13/18 04:00 99.0 115 21 126/45 (72) 97 06/13/18 04:00 114 06/13/18 03:00 119 28 121/63 (82) 98 06/13/18 02:00 111 26 109/60 (76) 98 06/13/18 01:00 106 18 114/61 (78) 98 06/13/18 00:00 113 06/13/18 00:00 90 28 109/60 (76) 98 06/13/18 00:00 Room Air Room Air 06/12/18 23:00 96 28 109/61 (77) 98 06/12/18 22:00 123 28 115/58 (77) 98 06/12/18 21:07 116 110/61 06/12/18 21:00 123 26 123/58 (79) 98 06/12/18 20:00 123 06/12/18 20:00 99.2 122 26 113/58 (76) 98 06/12/18 20:00 Room Air Room Air 06/12/18 19:00 121 26 113/59 (77) 99 06/12/18 18:00 116 26 111/62 (78) 99 06/12/18 17:00 114 29 122/45 (70) 99 06/12/18 16:00 Room Air Room Air 06/12/18 16:00 104 06/12/18 16:00 99.0 112 25 107/70 (82) 98 06/12/18 15:00 115 29 109/62 (78) 100 06/12/18 14:00 112 29 104/61 (75) 100 06/12/18 13:00 99.9 109 29 118/90 (99) 99 06/12/18 12:50 122 Height (Feet): 5 Height (Inches): 11.00 Weight (Pounds): 60 General Appearance: no acute distress HEENT: mucous membranes moist Respiratory/Chest: lungs clear Cardiovascular: normal rate, other - port Abdomen: soft, non tender Extremities: no edema Neurologic/Psychiatric: other - sleeping Laboratory Tests Test 06/13/18 05:01 White Blood Count 14.1 K/UL (4.8-10.8) H Red Blood Count 3.19 M/UL (4.70-6.10) L Hemoglobin 8.9 G/DL (14.2-18.0) L Hematocrit 27.5 % (42.0-52.0) L Mean Corpuscular Volume 86 FL (80-99) Mean Corpuscular Hemoglobin 27.8 PG (27.0-31.0) Mean Corpuscular Hemoglobin Concent 32.2 G/DL (32.0-36.0) Red Cell Distribution Width 19.7 % (11.6-14.8) H Platelet Count 502 K/UL (150-450) H Mean Platelet Volume 4.8 FL (6.5-10.1) L Neutrophils (%) (Auto) 78.1 % (45.0-75.0) H Lymphocytes (%) (Auto) 12.9 % (20.0-45.0) L Monocytes (%) (Auto) 6.2 % (1.0-10.0) Eosinophils (%) (Auto) 0.7 % (0.0-3.0) Basophils (%) (Auto) 2.1 % (0.0-2.0) H Sodium Level 131 MMOL/L (136-145) L Potassium Level 4.1 MMOL/L (3.5-5.1) Chloride Level 98 MMOL/L (98-107) Carbon Dioxide Level 28 MMOL/L (21-32) Anion Gap 5 mmol/L (5-15) Blood Urea Nitrogen 7 mg/dL (7-18) Creatinine 0.7 MG/DL (0.55-1.30) Estimat Glomerular Filtration Rate mL/min (>60) Glucose Level 106 MG/DL (74-106) Calcium Level 10.9 MG/DL (8.5-10.1) H Current Medications Medications (Trade) Dose Ordered Sig/Matthieu Route PRN Reason Start Time Stop Time Status Last Admin Dose Admin Barium Sulfate (Readi-Cat 2) 450 ml NOW PRN ORAL Radiology Procedure 06/13/18 12:00 06/15/18 11:56 UNV Chlorhexidine Gluconate (Crystal-Hex 2%) 1 applic DAILY@2000 TOPIC 06/10/18 20:00 07/10/18 19:59 06/12/18 20:11 Dextrose (Dextrose 50%) 25 ml Q30M PRN IV Hypoglycemia 06/08/18 11:00 07/08/18 10:59 Dextrose (Dextrose 50%) 50 ml Q30M PRN IV Hypoglycemia 06/08/18 11:00 07/08/18 10:59 Dextrose/ Electrolytes 1,000 ml @ 75 mls/hr [id number] IV 06/12/18 07:30 07/12/18 07:29 06/12/18 21:06 Digoxin (Lanoxin) 0.25 mg DAILY ORAL 06/11/18 09:00 07/11/18 08:59 06/13/18 08:38 Heparin Sodium (Porcine) (Heparin 5000 units/ml) 5,000 units EVERY 12 HOURS SUBQ 06/08/18 21:00 07/04/18 20:59 06/13/18 08:39 Iopamidol (Isovue-300 100ml) 100 ml NOW PRN INJ Radiology Procedure 06/13/18 12:00 UNV Metoprolol Tartrate (Lopressor) 100 mg Q12HR ORAL 06/13/18 09:00 07/09/18 08:59 06/13/18 08:38 Midodrine (Pro-Amatine) 10 mg THREE TIMES A DAY ORAL 06/09/18 01:00 07/09/18 00:59 06/13/18 08:38 Morphine Sulfate (Morphine Sulfate) 2 mg Q3H PRN IVP For Pain 06/11/18 20:30 06/18/18 20:29 06/13/18 05:32 Ondansetron HCl (Zofran) 4 mg Q6H PRN IVP Nausea & Vomiting 06/08/18 11:00 07/04/18 16:59 06/09/18 01:44 Pantoprazole (Protonix) 40 mg EVERY 12 HOURS IVP 06/08/18 22:45 07/08/18 22:44 06/13/18 08:37 Sucralfate (Carafate) 1 gm FOUR TIMES A DAY ORAL 06/13/18 13:00 07/13/18 12:59 Zolpidem Tartrate (Ambien) 5 mg HSPRN PRN ORAL Insomnia 06/08/18 21:00 06/15/18 20:59 Doug Cardona MD Jun 13, 2018 12:04
--- NOTE | 2018-06-13 12:19 | General Progress Note ---
Assessment/Plan Problem List: (1) Episode of generalized weakness ICD Codes: R53.1 - Weakness SNOMED: 58311761 (2) Colitis ICD Codes: K52.9 - Noninfective gastroenteritis and colitis, unspecified SNOMED: 85585974 (3) Bacteremia ICD Codes: R78.81 - Bacteremia SNOMED: 3276350 (4) Hypercalcemia ICD Codes: E83.52 - Hypercalcemia SNOMED: 40168524 (5) Hypokalemia ICD Codes: E87.6 - Hypokalemia SNOMED: 28033574 (6) Anemia ICD Codes: D64.9 - Anemia, unspecified SNOMED: 730650682 (7) SVT (supraventricular tachycardia) ICD Codes: I47.1 - Supraventricular tachycardia SNOMED: 2811461 Assessment/Plan rate control with digoxin and beta blockers follow labs ICU care Discussed with RN Subjective Allergies: Coded Allergies: No Known Allergies (Unverified , 06/04/18) Subjective C/O pain Objective Last 24 Hour Vital Signs Date Time Temp Pulse Resp B/P (MAP) Pulse Ox O2 Delivery O2 Flow Rate FiO2 06/13/18 11:00 102 23 126/69 (88) 99 06/13/18 10:00 112 22 114/66 (82) 100 06/13/18 09:00 126 30 132/73 (92) 97 06/13/18 08:38 130 108/62 06/13/18 08:38 127 06/13/18 08:00 98.4 111 24 108/62 (77) 96 06/13/18 08:00 Room Air Room Air 06/13/18 08:00 129 06/13/18 07:30 96 Room Air 21 06/13/18 07:30 Room Air 21 06/13/18 07:00 112 20 132/73 (92) 97 06/13/18 06:00 114 20 113/63 (80) 97 06/13/18 05:00 120 21 126/45 (72) 97 06/13/18 04:00 Room Air Room Air 06/13/18 04:00 99.0 115 21 126/45 (72) 97 06/13/18 04:00 114 06/13/18 03:00 119 28 121/63 (82) 98 06/13/18 02:00 111 26 109/60 (76) 98 06/13/18 01:00 106 18 114/61 (78) 98 06/13/18 00:00 113 06/13/18 00:00 90 28 109/60 (76) 98 06/13/18 00:00 Room Air Room Air 06/12/18 23:00 96 28 109/61 (77) 98 06/12/18 22:00 123 28 115/58 (77) 98 06/12/18 21:07 116 110/61 06/12/18 21:00 123 26 123/58 (79) 98 06/12/18 20:00 123 06/12/18 20:00 99.2 122 26 113/58 (76) 98 06/12/18 20:00 Room Air Room Air 06/12/18 19:00 121 26 113/59 (77) 99 06/12/18 18:00 116 26 111/62 (78) 99 06/12/18 17:00 114 29 122/45 (70) 99 06/12/18 16:00 Room Air Room Air 06/12/18 16:00 104 06/12/18 16:00 99.0 112 25 107/70 (82) 98 06/12/18 15:00 115 29 109/62 (78) 100 06/12/18 14:00 112 29 104/61 (75) 100 06/12/18 13:00 99.9 109 29 118/90 (99) 99 06/12/18 12:50 122 Intake and Output 06/12/18 06/13/18 19:00 07:00 Intake Total 1630 ml 1050 ml Output Total 2975 ml 2290 ml Balance -1345 ml -1240 ml Intake Oral 880 ml 300 ml IV Total 750 ml 750 ml Output Urine Total 2975 ml 2290 ml # Bowel Movements 1 Laboratory Tests 06/13/18 05:01: White Blood Count 14.1H, Red Blood Count 3.19L, Hemoglobin 8.9L, Hematocrit 27.5L, Mean Corpuscular Volume 86, Mean Corpuscular Hemoglobin 27.8, Mean Corpuscular Hemoglobin Concent 32.2, Red Cell Distribution Width 19.7H, Platelet Count 502H, Mean Platelet Volume 4.8L, Neutrophils (%) (Auto) 78.1H, Lymphocytes (%) (Auto) 12.9L, Monocytes (%) (Auto) 6.2, Eosinophils (%) (Auto) 0.7, Basophils (%) (Auto) 2.1H, Sodium Level 131L, Potassium Level 4.1, Chloride Level 98, Carbon Dioxide Level 28, Anion Gap 5, Blood Urea Nitrogen 7, Creatinine 0.7, Estimat Glomerular Filtration Rate , Glucose Level 106, Calcium Level 10.9H Height (Feet): 5 Height (Inches): 11.00 Weight (Pounds): 60 Cardiovascular: tachycardia Respiratory/Chest: lungs clear Edema: no edema noted Generalized Ronen Cardona MD Jun 13, 2018 12:19
--- NOTE | 2018-06-13 13:10 | Diagnostic Imaging Report ---
Indication: Dyspnea Comparison: 06/04/2018 A single view chest radiograph was obtained. Findings: Mass density again noted over the left upper lung field. Heart size is stable. Volume loss elevation of left hemidiaphragm again demonstrated. Right chest port again noted. IMPRESSION: No radiographic change
[2018-06-13] MEDS: Sucralfate 1gm tab ORAL SCH ×3 (13:19→20:54)
--- NOTE | 2018-06-13 13:52 | Cardiac Electrophysiology PN ---
Assessment/Plan Assessment/Plan 1. 20 beats of nonsustained ventricular tachycardia.No MO or syncope. The patient has normal left ventricular systolic function.On metoprolol 100 mg b.i.d. 2. Recurrent SVT despite adenosine 6 and 12 mg. The patient is not in the condition to undergo electrophysiology study at this point. On Lopressor 100 bid and Dig 3. Sepsis, on IV antibiotic per Dr. Doug Cardona. 4. Lung cancer. 5. Hypokalemia, which was corrected. 6. Severe anemia, status post EGD and blood transfusion. D WRN Subjective Subjective Sinus tachycardia better after iv dig.In ICU. No VT overight. Objective Last 24 Hour Vital Signs Date Time Temp Pulse Resp B/P (MAP) Pulse Ox O2 Delivery O2 Flow Rate FiO2 06/13/18 13:23 98.2 96 33 124/89 (101) 97 06/13/18 13:00 98.2 96 33 124/89 (101) 97 06/13/18 12:00 Room Air Room Air 06/13/18 12:00 95 20 126/62 (83) 99 06/13/18 12:00 95 06/13/18 11:00 102 23 126/69 (88) 99 06/13/18 10:00 112 22 114/66 (82) 100 06/13/18 09:00 126 30 132/73 (92) 97 06/13/18 08:38 130 108/62 06/13/18 08:38 127 06/13/18 08:00 98.4 111 24 108/62 (77) 96 06/13/18 08:00 Room Air Room Air 06/13/18 08:00 129 06/13/18 07:30 96 Room Air 21 06/13/18 07:30 Room Air 21 06/13/18 07:00 112 20 132/73 (92) 97 06/13/18 06:00 114 20 113/63 (80) 97 06/13/18 05:00 120 21 126/45 (72) 97 06/13/18 04:00 Room Air Room Air 06/13/18 04:00 99.0 115 21 126/45 (72) 97 06/13/18 04:00 114 06/13/18 03:00 119 28 121/63 (82) 98 06/13/18 02:00 111 26 109/60 (76) 98 06/13/18 01:00 106 18 114/61 (78) 98 06/13/18 00:00 113 06/13/18 00:00 90 28 109/60 (76) 98 06/13/18 00:00 Room Air Room Air 06/12/18 23:00 96 28 109/61 (77) 98 06/12/18 22:00 123 28 115/58 (77) 98 06/12/18 21:07 116 110/61 06/12/18 21:00 123 26 123/58 (79) 98 06/12/18 20:00 123 06/12/18 20:00 99.2 122 26 113/58 (76) 98 06/12/18 20:00 Room Air Room Air 06/12/18 19:00 121 26 113/59 (77) 99 06/12/18 18:00 116 26 111/62 (78) 99 06/12/18 17:00 114 29 122/45 (70) 99 06/12/18 16:00 Room Air Room Air 06/12/18 16:00 104 06/12/18 16:00 99.0 112 25 107/70 (82) 98 06/12/18 15:00 115 29 109/62 (78) 100 06/12/18 14:00 112 29 104/61 (75) 100 Intake and Output 06/12/18 06/13/18 19:00 07:00 Intake Total 1630 ml 1050 ml Output Total 2975 ml 2290 ml Balance -1345 ml -1240 ml Intake Oral 880 ml 300 ml IV Total 750 ml 750 ml Output Urine Total 2975 ml 2290 ml # Bowel Movements 1 Laboratory Tests Test 06/13/18 05:01 White Blood Count 14.1 K/UL (4.8-10.8) H Red Blood Count 3.19 M/UL (4.70-6.10) L Hemoglobin 8.9 G/DL (14.2-18.0) L Hematocrit 27.5 % (42.0-52.0) L Mean Corpuscular Volume 86 FL (80-99) Mean Corpuscular Hemoglobin 27.8 PG (27.0-31.0) Mean Corpuscular Hemoglobin Concent 32.2 G/DL (32.0-36.0) Red Cell Distribution Width 19.7 % (11.6-14.8) H Platelet Count 502 K/UL (150-450) H Mean Platelet Volume 4.8 FL (6.5-10.1) L Neutrophils (%) (Auto) 78.1 % (45.0-75.0) H Lymphocytes (%) (Auto) 12.9 % (20.0-45.0) L Monocytes (%) (Auto) 6.2 % (1.0-10.0) Eosinophils (%) (Auto) 0.7 % (0.0-3.0) Basophils (%) (Auto) 2.1 % (0.0-2.0) H Sodium Level 131 MMOL/L (136-145) L Potassium Level 4.1 MMOL/L (3.5-5.1) Chloride Level 98 MMOL/L (98-107) Carbon Dioxide Level 28 MMOL/L (21-32) Anion Gap 5 mmol/L (5-15) Blood Urea Nitrogen 7 mg/dL (7-18) Creatinine 0.7 MG/DL (0.55-1.30) Estimat Glomerular Filtration Rate mL/min (>60) Glucose Level 106 MG/DL (74-106) Calcium Level 10.9 MG/DL (8.5-10.1) H Objective HEAD AND NECK: Mild JVD. LUNGS: Decreased breath sounds. CARDIOVASCULAR: Regular S1, S2 with no gallop. ABDOMEN: Soft. SKIN: He has port in the right chest. EXTREMITIES: He had no pitting edema. Lake Joshi MD Jun 13, 2018 13:51
--- NOTE | 2018-06-13 14:08 | Cardiology Progress Note ---
Assessment/Plan Status: stable Assessment/Plan Assessment: (1) Episode of generalized weakness (2) Colitis (3) Bacteremia (4) Hypercalcemia (5) Diabetes (6) Lung Cancer (7) Supraventricular tachycardia Plan: Rate control with metoprolol 100 BID (hold for SBP <90) and digoxin 0.25 Monitor blood pressures, hold antihypertensive therapy IV fluids s/p EGD with hemostasis Transfused PRBC IV iron Replete electrolytes Outpatient stress test when stable Echo with preserved LV function, mild PAH, grade 2 diastolic dysfunction Transfer to telemetry Subjective Cardiovascular: Reports: no symptoms Respiratory: Reports: no symptoms Gastrointestinal/Abdominal: Reports: no symptoms Genitourinary: Reports: no symptoms Subjective No acute events, mental status baseline, tolerating PO, plan to send to telemetry today, heart rates better Objective Last 24 Hour Vital Signs Date Time Temp Pulse Resp B/P (MAP) Pulse Ox O2 Delivery O2 Flow Rate FiO2 06/13/18 13:23 98.2 96 33 124/89 (101) 97 06/13/18 13:00 98.2 96 33 124/89 (101) 97 06/13/18 12:00 Room Air Room Air 06/13/18 12:00 95 20 126/62 (83) 99 06/13/18 12:00 95 06/13/18 11:00 102 23 126/69 (88) 99 06/13/18 10:00 112 22 114/66 (82) 100 06/13/18 09:00 126 30 132/73 (92) 97 06/13/18 08:38 130 108/62 06/13/18 08:38 127 06/13/18 08:00 98.4 111 24 108/62 (77) 96 06/13/18 08:00 Room Air Room Air 06/13/18 08:00 129 06/13/18 07:30 96 Room Air 21 06/13/18 07:30 Room Air 21 06/13/18 07:00 112 20 132/73 (92) 97 06/13/18 06:00 114 20 113/63 (80) 97 06/13/18 05:00 120 21 126/45 (72) 97 06/13/18 04:00 Room Air Room Air 06/13/18 04:00 99.0 115 21 126/45 (72) 97 06/13/18 04:00 114 06/13/18 03:00 119 28 121/63 (82) 98 06/13/18 02:00 111 26 109/60 (76) 98 06/13/18 01:00 106 18 114/61 (78) 98 06/13/18 00:00 113 06/13/18 00:00 90 28 109/60 (76) 98 06/13/18 00:00 Room Air Room Air 06/12/18 23:00 96 28 109/61 (77) 98 06/12/18 22:00 123 28 115/58 (77) 98 06/12/18 21:07 116 110/61 06/12/18 21:00 123 26 123/58 (79) 98 06/12/18 20:00 123 06/12/18 20:00 99.2 122 26 113/58 (76) 98 06/12/18 20:00 Room Air Room Air 06/12/18 19:00 121 26 113/59 (77) 99 06/12/18 18:00 116 26 111/62 (78) 99 06/12/18 17:00 114 29 122/45 (70) 99 06/12/18 16:00 Room Air Room Air 06/12/18 16:00 104 06/12/18 16:00 99.0 112 25 107/70 (82) 98 06/12/18 15:00 115 29 109/62 (78) 100 General Appearance: no apparent distress, alert EENT: PERRL/EOMI Neck: non-tender, normal alignment, supple Rhythm: ST Cardiovascular: normal peripheral pulses, normal rate, tachycardia Respiratory/Chest: chest wall non-tender, lungs clear Abdomen: non tender, soft 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 II-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 grossly normal, no motor/sensory deficits Intake and Output 06/12/18 06/13/18 19:00 07:00 Intake Total 1630 ml 1050 ml Output Total 2975 ml 2290 ml Balance -1345 ml -1240 ml Intake Oral 880 ml 300 ml IV Total 750 ml 750 ml Output Urine Total 2975 ml 2290 ml # Bowel Movements 1 Laboratory Tests Test 06/13/18 05:01 White Blood Count 14.1 K/UL (4.8-10.8) H Red Blood Count 3.19 M/UL (4.70-6.10) L Hemoglobin 8.9 G/DL (14.2-18.0) L Hematocrit 27.5 % (42.0-52.0) L Mean Corpuscular Volume 86 FL (80-99) Mean Corpuscular Hemoglobin 27.8 PG (27.0-31.0) Mean Corpuscular Hemoglobin Concent 32.2 G/DL (32.0-36.0) Red Cell Distribution Width 19.7 % (11.6-14.8) H Platelet Count 502 K/UL (150-450) H Mean Platelet Volume 4.8 FL (6.5-10.1) L Neutrophils (%) (Auto) 78.1 % (45.0-75.0) H Lymphocytes (%) (Auto) 12.9 % (20.0-45.0) L Monocytes (%) (Auto) 6.2 % (1.0-10.0) Eosinophils (%) (Auto) 0.7 % (0.0-3.0) Basophils (%) (Auto) 2.1 % (0.0-2.0) H Sodium Level 131 MMOL/L (136-145) L Potassium Level 4.1 MMOL/L (3.5-5.1) Chloride Level 98 MMOL/L (98-107) Carbon Dioxide Level 28 MMOL/L (21-32) Anion Gap 5 mmol/L (5-15) Blood Urea Nitrogen 7 mg/dL (7-18) Creatinine 0.7 MG/DL (0.55-1.30) Estimat Glomerular Filtration Rate mL/min (>60) Glucose Level 106 MG/DL (74-106) Calcium Level 10.9 MG/DL (8.5-10.1) H Navjot Moya MD Jun 13, 2018 14:08
[2018-06-13] MEDS ORDERED: NS 275ml ONE ×2 (14:49→14:51)
[2018-06-13] MEDS ORDERED: Tubing IV Blood Pump IV ONE (14:49)
[2018-06-13] MEDS ORDERED: NS 500ML ONE (14:49)
[2018-06-13] MEDS: Dyna-Hex 2% Top Sol 2oz TOPIC SCH (20:54)
[2018-06-14] VITALS (10 sets, daily range): BP systolic 108–126; BP diastolic 66–74
[2018-06-14 05:55] LABS: BASOPHILS % (AUTO) 0.9 % (0.0-2.0); EOSINOPHILS % (AUTO) 0.7 % (0.0-3.0); HEMATOCRIT 28.5 % (42.0-52.0); HEMOGLOBIN 9.6 G/DL (14.2-18.0); LYMPHOCYTES % (AUTO) 12.8 % (20.0-45.0); MEAN CORPUSCULAR VOLUME 86 FL (80-99); MONOCYTES % (AUTO) 8.4 % (1.0-10.0); NEUTROPHILS % (AUTO) 77.2 % (45.0-75.0); PLATELET COUNT 624 K/UL (150-450); RED CELL DISTRIBUTION WIDTH 18.6 % (11.6-14.8); WHITE BLOOD COUNT 12.5 K/UL (4.8-10.8)
[2018-06-14 06:06] LABS: ANION GAP 6 mmol/L (5-15); BLOOD UREA NITROGEN 9 mg/dL (7-18); CALCIUM 11.2 MG/DL (8.5-10.1); CARBON DIOXIDE 29 MMOL/L (21-32); CHLORIDE 97 MMOL/L (98-107); CREATININE 0.8 MG/DL (0.55-1.30); POTASSIUM 3.9 MMOL/L (3.5-5.1); SODIUM 132 MMOL/L (136-145)
[2018-06-14] MEDS ORDERED: Morphine Sulfate 2mg/ml Inj IVP PRN (06:31)
[2018-06-14] MEDS ORDERED: Isovue-300 100ml vial INJ PRN (06:33)
[2018-06-14] MEDS ORDERED: Heparin 5000 units/ml inj SUBQ SCH (09:00)
[2018-06-14] MEDS ORDERED: Pantoprazole Inj IVP SCH (09:00)
[2018-06-14] MEDS: Sucralfate 1gm tab ORAL SCH ×3 (09:50→17:45)
[2018-06-14] MEDS: Midodrine 10mg tab ORAL SCH ×3 (09:51→17:45)
--- NOTE | 2018-06-14 10:46 | Diagnostic Imaging Report ---
Indication: Abdominal pain Technique: Continuous helical transaxial imaging of the abdomen and pelvis was obtained from the lung bases to the pubic symphysis during intravenous contrast administration. Coronal 2-D reformats were also obtained. Study obtained in a Siemens sensation [address] Automatic Exposure Control was utilized. Total Dose length Product (DLP): 532.[address] Dose Index Volume (CTDIvol): 10.78 mGy Comparison: None Findings: There is extreme elevation of the left hemidiaphragm such that part of the stomach part of the spleen are not included in the [id number]. Right basilar paraseptal bleb formation indicative of mild fibrosis noted. Pacemaker wires noted. There are punctate calcifications within the calyces of both kidneys consistent with nonobstructive stones. There is no hydronephrosis. Moderate aortoiliac calcifications are present. No gross abnormalities of the liver identified. The gallbladder is contracted. Thorne catheter is present appears to be in good position. There is thickening of the wall the urinary bladder. There is moderate rectal distention with stool. There is moderate to severe retention of stool in the colon which is dilated. No evidence of bowel obstruction. No significant free fluid identified. No free air identified. Normal retrocecal appendix is demonstrated just lateral to the right psoas muscle. There is a moderate to severe compression fracture of the superior endplate of L1. The fracture is probably old but please correlate clinically. There is about 70% loss of height. Narrowing of the L3-4 intervertebral disc, generalized osteopenia are noted. IMPRESSION: Bilateral nonobstructive nephrolithiasis. Severe elevation of the left hemidiaphragm. Consequently portions of the abdominal cavity such as the stomach and spleen are not fully visualized on this examination as they are well within the mid to upper chest. Severe fecal retention and dilatation of the colon. Thorne catheter in good position. Normal retrocecal appendix. Thickening of the wall the urinary bladder. Correlate for cystitis. Severe L1 vertebral fracture probably old. Right basilar lung fibrosis. . The CT scanner at [facility] is accredited by the [employer] and the scans are performed using dose optimization techniques as appropriate to a performed exam including Automatic Exposure control.
--- NOTE | 2018-06-14 13:28 | Infectious Diseases Prog Note ---
Assessment/Plan Assessment/Plan A; Sepsis/SIRS Diarrhea, fecal impaction Lung cancer Positive blood culture like contamination Cachexia Hypokalemia corrected GI bleeding Severe anemia SVT Stomach ulcers Leukocytosis improving L1 compression fracture P; observe off antibiotic Subjective ROS Limited/Unobtainable: Yes Constitutional: Reports: other - transferred out of ICU, doing better Respiratory: Reports: no symptoms Gastrointestinal/Abdominal: Reports: no symptoms Genitourinary: Reports: no symptoms Musculoskeletal: Reports: pain Allergies: Coded Allergies: No Known Allergies (Unverified , 06/04/18) Objective Vital Signs Last 24 Hour Vital Signs Date Time Temp Pulse Resp B/P (MAP) Pulse Ox O2 Delivery O2 Flow Rate FiO2 06/14/18 12:00 Room Air Room Air 06/14/18 12:00 128 06/14/18 12:00 98.9 118 20 108/67 (81) 96 06/14/18 09:51 131 108/69 06/14/18 09:51 131 06/14/18 08:00 131 06/14/18 08:00 Room Air Room Air 06/14/18 08:00 97.3 128 20 108/69 (82) 97 06/14/18 07:49 98 Room Air 21 06/14/18 07:49 Room Air 21 06/14/18 07:13 98.0 06/14/18 06:00 121 28 117/70 (86) 98 06/14/18 05:00 110 28 117/70 (86) 96 06/14/18 04:00 118 06/14/18 04:00 98.0 114 24 118/74 (89) 96 06/14/18 04:00 Room Air Room Air 06/14/18 03:00 110 28 117/69 (85) 96 06/14/18 02:00 104 28 118/66 (83) 97 06/14/18 01:00 107 31 117/66 (83) 97 06/14/18 00:00 Room Air Room Air 06/14/18 00:00 103 06/14/18 00:00 97.9 107 31 126/66 (86) 97 06/13/18 23:00 103 32 123/62 (82) 96 06/13/18 22:00 102 28 126/65 (85) 96 06/13/18 21:00 102 26 126/65 (85) 98 06/13/18 20:54 115 112/66 06/13/18 20:00 114 06/13/18 20:00 98.1 117 31 112/66 (81) 97 06/13/18 20:00 Room Air Room Air 06/13/18 19:00 117 29 106/76 (86) 99 06/13/18 18:00 102 22 165/76 (105) 100 06/13/18 17:00 97.9 104 21 125/68 (87) 100 06/13/18 16:00 106 30 117/60 (79) 99 06/13/18 16:00 106 06/13/18 16:00 Room Air Room Air 06/13/18 15:00 107 28 122/56 (78) 98 06/13/18 14:00 102 27 125/71 (89) 97 06/13/18 13:23 98.2 96 33 124/89 (101) 97 Height (Feet): 5 Height (Inches): 11.00 Weight (Pounds): 143 General Appearance: cachetic HEENT: mucous membranes moist Respiratory/Chest: lungs clear Cardiovascular: tachycardia, other - port Abdomen: soft, non tender Extremities: no edema Neurologic/Psychiatric: alert, responsive Laboratory Tests Test 06/14/18 04:36 White Blood Count 12.5 K/UL (4.8-10.8) H Red Blood Count 3.30 M/UL (4.70-6.10) L Hemoglobin 9.6 G/DL (14.2-18.0) L Hematocrit 28.5 % (42.0-52.0) L Mean Corpuscular Volume 86 FL (80-99) Mean Corpuscular Hemoglobin 29.1 PG (27.0-31.0) Mean Corpuscular Hemoglobin Concent 33.8 G/DL (32.0-36.0) Red Cell Distribution Width 18.6 % (11.6-14.8) H Platelet Count 624 K/UL (150-450) H Mean Platelet Volume 4.7 FL (6.5-10.1) L Neutrophils (%) (Auto) 77.2 % (45.0-75.0) H Lymphocytes (%) (Auto) 12.8 % (20.0-45.0) L Monocytes (%) (Auto) 8.4 % (1.0-10.0) Eosinophils (%) (Auto) 0.7 % (0.0-3.0) Basophils (%) (Auto) 0.9 % (0.0-2.0) Sodium Level 132 MMOL/L (136-145) L Potassium Level 3.9 MMOL/L (3.5-5.1) Chloride Level 97 MMOL/L (98-107) L Carbon Dioxide Level 29 MMOL/L (21-32) Anion Gap 6 mmol/L (5-15) Blood Urea Nitrogen 9 mg/dL (7-18) Creatinine 0.8 MG/DL (0.55-1.30) Estimat Glomerular Filtration Rate mL/min (>60) Glucose Level 106 MG/DL (74-106) Calcium Level 11.2 MG/DL (8.5-10.1) H Current Medications Medications (Trade) Dose Ordered Sig/Matthieu Route PRN Reason Start Time Stop Time Status Last Admin Dose Admin Barium Sulfate (Readi-Cat 2) 450 ml NOW PRN ORAL Radiology Procedure 06/14/18 06:33 06/14/18 23:59 Chlorhexidine Gluconate (Crystal-Hex 2%) 1 applic DAILY@2000 TOPIC 06/14/18 20:00 07/10/18 19:59 Dextrose (Dextrose 50%) 25 ml Q30M PRN IV Hypoglycemia 06/14/18 06:30 07/08/18 10:59 Dextrose (Dextrose 50%) 50 ml Q30M PRN IV Hypoglycemia 06/14/18 06:30 07/08/18 10:59 Dextrose/ Electrolytes 1,000 ml @ 75 mls/hr [id number] IV 06/14/18 06:30 07/12/18 07:29 06/14/18 06:50 Digoxin (Lanoxin) 0.25 mg DAILY ORAL 06/14/18 09:00 07/11/18 08:59 06/14/18 09:51 Heparin Sodium (Porcine) (Heparin 5000 units/ml) 5,000 units EVERY 12 HOURS SUBQ 06/14/18 09:00 07/04/18 20:59 06/14/18 09:54 Iopamidol (Isovue-300 100ml) 100 ml NOW PRN INJ Radiology Procedure 06/14/18 06:33 06/14/18 23:59 Metoprolol Tartrate (Lopressor) 100 mg Q12HR ORAL 06/14/18 09:00 07/09/18 08:59 06/14/18 09:51 Midodrine (Pro-Amatine) 10 mg THREE TIMES A DAY ORAL 06/14/18 09:00 07/09/18 00:59 06/14/18 13:09 Morphine Sulfate (Morphine Sulfate) 2 mg Q3H PRN IVP For Pain 06/14/18 06:31 06/18/18 06:30 06/14/18 06:43 Ondansetron HCl (Zofran) 4 mg Q6H PRN IVP Nausea & Vomiting 06/14/18 06:32 07/04/18 06:31 Pantoprazole (Protonix) 40 mg EVERY 12 HOURS IVP 06/14/18 09:00 07/08/18 22:44 06/14/18 09:50 Sucralfate (Carafate) 1 gm FOUR TIMES A DAY ORAL 06/14/18 09:00 07/13/18 12:59 06/14/18 13:09 Zolpidem Tartrate (Ambien) 5 mg HSPRN PRN ORAL Insomnia 06/14/18 21:00 06/15/18 20:59 Doug Cardona MD Jun 14, 2018 13:28
--- NOTE | 2018-06-14 14:23 | General Progress Note ---
Assessment/Plan Assessment/Plan Assessment - large gastric ulcer - severe anemia / UGIB - improving - fecal loading - Urolithiasis - abd pain- likely due to ulcer +/- stool impaction - SVT - dehydration - GILES - h/o lung CA, on chemo - malnutrition - poor px Recommendations - follow labs - PO diet at tolerated - Sorbitol trial - carafate QID - BID PPI - RBC transfusion PRN Subjective Allergies: Coded Allergies: No Known Allergies (Unverified , 06/04/18) Subjective Out of ICU c/o abd pain had CT today FINDINGS: - urolithiasis - fecal loading - elevated (L) hemidiaphragm - L1 comp fracture Objective Last 24 Hour Vital Signs Date Time Temp Pulse Resp B/P (MAP) Pulse Ox O2 Delivery O2 Flow Rate FiO2 06/14/18 12:00 Room Air Room Air 06/14/18 12:00 128 06/14/18 12:00 98.9 118 20 108/67 (81) 96 06/14/18 09:51 131 108/69 06/14/18 09:51 131 06/14/18 08:00 131 06/14/18 08:00 Room Air Room Air 06/14/18 08:00 97.3 128 20 108/69 (82) 97 06/14/18 07:49 98 Room Air 21 06/14/18 07:49 Room Air 21 06/14/18 07:13 98.0 06/14/18 06:00 121 28 117/70 (86) 98 06/14/18 05:00 110 28 117/70 (86) 96 06/14/18 04:00 118 06/14/18 04:00 98.0 114 24 118/74 (89) 96 06/14/18 04:00 Room Air Room Air 06/14/18 03:00 110 28 117/69 (85) 96 06/14/18 02:00 104 28 118/66 (83) 97 06/14/18 01:00 107 31 117/66 (83) 97 06/14/18 00:00 Room Air Room Air 06/14/18 00:00 103 06/14/18 00:00 97.9 107 31 126/66 (86) 97 06/13/18 23:00 103 32 123/62 (82) 96 06/13/18 22:00 102 28 126/65 (85) 96 06/13/18 21:00 102 26 126/65 (85) 98 06/13/18 20:54 115 112/66 06/13/18 20:00 114 06/13/18 20:00 98.1 117 31 112/66 (81) 97 06/13/18 20:00 Room Air Room Air 06/13/18 19:00 117 29 106/76 (86) 99 06/13/18 18:00 102 22 165/76 (105) 100 06/13/18 17:00 97.9 104 21 125/68 (87) 100 06/13/18 16:00 106 30 117/60 (79) 99 06/13/18 16:00 106 06/13/18 16:00 Room Air Room Air 06/13/18 15:00 107 28 122/56 (78) 98 Intake and Output 06/13/18 06/14/18 19:00 07:00 Intake Total 1055 ml 900 ml Output Total 1670 ml 1900 ml Balance -615 ml -1000 ml Intake Oral 230 ml 0 ml IV Total 825 ml 900 ml Output Urine Total 1670 ml 1900 ml Laboratory Tests 06/14/18 04:36: White Blood Count 12.5H, Red Blood Count 3.30L, Hemoglobin 9.6L, Hematocrit 28.5L, Mean Corpuscular Volume 86, Mean Corpuscular Hemoglobin 29.1, Mean Corpuscular Hemoglobin Concent 33.8, Red Cell Distribution Width 18.6H, Platelet Count 624H, Mean Platelet Volume 4.7L, Neutrophils (%) (Auto) 77.2H, Lymphocytes (%) (Auto) 12.8L, Monocytes (%) (Auto) 8.4, Eosinophils (%) (Auto) 0.7, Basophils (%) (Auto) 0.9, Sodium Level 132L, Potassium Level 3.9, Chloride Level 97L, Carbon Dioxide Level 29, Anion Gap 6, Blood Urea Nitrogen 9, Creatinine 0.8, Estimat Glomerular Filtration Rate , Glucose Level 106, Calcium Level 11.2H Height (Feet): 5 Height (Inches): 11.00 Weight (Pounds): 143 Objective Thin AA man NCAT Supple CTA RRR abd soft no edema Suellen Baum MD Jun 14, 2018 14:23
[2018-06-14] MEDS ORDERED: Sorbitol Solution UD 30ml ORAL SCH (14:30)
--- NOTE | 2018-06-14 14:47 | General Progress Note ---
Assessment/Plan Problem List: (1) Episode of generalized weakness ICD Codes: R53.1 - Weakness SNOMED: 19741090 (2) Colitis ICD Codes: K52.9 - Noninfective gastroenteritis and colitis, unspecified SNOMED: 08183026 (3) Bacteremia ICD Codes: R78.81 - Bacteremia SNOMED: 8343789 (4) Hypercalcemia ICD Codes: E83.52 - Hypercalcemia SNOMED: 87673666 (5) Hypokalemia ICD Codes: E87.6 - Hypokalemia SNOMED: 55678093 (6) Anemia ICD Codes: D64.9 - Anemia, unspecified SNOMED: 978097490 (7) SVT (supraventricular tachycardia) ICD Codes: I47.1 - Supraventricular tachycardia SNOMED: 9633344 Assessment/Plan discussed with Dr Baum and dr Moya cleared for discharge Subjective Allergies: Coded Allergies: No Known Allergies (Unverified , 06/04/18) Subjective feels ok Objective Last 24 Hour Vital Signs Date Time Temp Pulse Resp B/P (MAP) Pulse Ox O2 Delivery O2 Flow Rate FiO2 06/14/18 12:00 Room Air Room Air 06/14/18 12:00 128 06/14/18 12:00 98.9 118 20 108/67 (81) 96 06/14/18 09:51 131 108/69 06/14/18 09:51 131 06/14/18 08:00 131 06/14/18 08:00 Room Air Room Air 06/14/18 08:00 97.3 128 20 108/69 (82) 97 06/14/18 07:49 98 Room Air 21 06/14/18 07:49 Room Air 21 06/14/18 07:13 98.0 06/14/18 06:00 121 28 117/70 (86) 98 06/14/18 05:00 110 28 117/70 (86) 96 06/14/18 04:00 118 06/14/18 04:00 98.0 114 24 118/74 (89) 96 06/14/18 04:00 Room Air Room Air 06/14/18 03:00 110 28 117/69 (85) 96 06/14/18 02:00 104 28 118/66 (83) 97 06/14/18 01:00 107 31 117/66 (83) 97 06/14/18 00:00 Room Air Room Air 06/14/18 00:00 103 06/14/18 00:00 97.9 107 31 126/66 (86) 97 06/13/18 23:00 103 32 123/62 (82) 96 06/13/18 22:00 102 28 126/65 (85) 96 06/13/18 21:00 102 26 126/65 (85) 98 06/13/18 20:54 115 112/66 06/13/18 20:00 114 06/13/18 20:00 98.1 117 31 112/66 (81) 97 06/13/18 20:00 Room Air Room Air 06/13/18 19:00 117 29 106/76 (86) 99 06/13/18 18:00 102 22 165/76 (105) 100 06/13/18 17:00 97.9 104 21 125/68 (87) 100 06/13/18 16:00 106 30 117/60 (79) 99 06/13/18 16:00 106 06/13/18 16:00 Room Air Room Air 06/13/18 15:00 107 28 122/56 (78) 98 Intake and Output 06/13/18 06/14/18 19:00 07:00 Intake Total 1055 ml 900 ml Output Total 1670 ml 1900 ml Balance -615 ml -1000 ml Intake Oral 230 ml 0 ml IV Total 825 ml 900 ml Output Urine Total 1670 ml 1900 ml Laboratory Tests 06/14/18 04:36: White Blood Count 12.5H, Red Blood Count 3.30L, Hemoglobin 9.6L, Hematocrit 28.5L, Mean Corpuscular Volume 86, Mean Corpuscular Hemoglobin 29.1, Mean Corpuscular Hemoglobin Concent 33.8, Red Cell Distribution Width 18.6H, Platelet Count 624H, Mean Platelet Volume 4.7L, Neutrophils (%) (Auto) 77.2H, Lymphocytes (%) (Auto) 12.8L, Monocytes (%) (Auto) 8.4, Eosinophils (%) (Auto) 0.7, Basophils (%) (Auto) 0.9, Sodium Level 132L, Potassium Level 3.9, Chloride Level 97L, Carbon Dioxide Level 29, Anion Gap 6, Blood Urea Nitrogen 9, Creatinine 0.8, Estimat Glomerular Filtration Rate , Glucose Level 106, Calcium Level 11.2H Height (Feet): 5 Height (Inches): 11.00 Weight (Pounds): 143 Ronen Cardona MD Jun 14, 2018 14:47
[2018-06-14] MEDS ORDERED: METOPROLOL TAR100 M1 ORAL (14:50)
[2018-06-14] MEDS ORDERED: PROTONIX40 MG ORAL (14:50)
[2018-06-14] MEDS ORDERED: CARAFATE1 G1 ORAL (14:50)
[2018-06-14] MEDS ORDERED: LANOXIN250 MCG ORAL (14:50)
--- NOTE | 2018-06-14 15:11 | Cardiac Electrophysiology PN ---
Assessment/Plan Assessment/Plan 1. 20 beats of nonsustained ventricular tachycardia.No KS or syncope. The patient has normal left ventricular systolic function.On metoprolol 100 mg b.i.d. 2. Recurrent SVT despite adenosine 6 and 12 mg. The patient is not in the condition to undergo electrophysiology study at this point. On Lopressor 100 bid and Dig 3. Sepsis, on IV antibiotic per Dr. Doug Cardona. 4. Lung cancer. 5. Hypokalemia, which was corrected. 6. Severe anemia, status post EGD and blood transfusion. DW RN OK to DC Subjective Subjective Sinus tachycardia better after dig No VT overight. Objective Last 24 Hour Vital Signs Date Time Temp Pulse Resp B/P (MAP) Pulse Ox O2 Delivery O2 Flow Rate FiO2 06/14/18 12:00 Room Air Room Air 06/14/18 12:00 128 06/14/18 12:00 98.9 118 20 108/67 (81) 96 06/14/18 09:51 131 108/69 06/14/18 09:51 131 06/14/18 08:00 131 06/14/18 08:00 Room Air Room Air 06/14/18 08:00 97.3 128 20 108/69 (82) 97 06/14/18 07:49 98 Room Air 21 06/14/18 07:49 Room Air 21 06/14/18 07:13 98.0 06/14/18 06:00 121 28 117/70 (86) 98 06/14/18 05:00 110 28 117/70 (86) 96 06/14/18 04:00 118 06/14/18 04:00 98.0 114 24 118/74 (89) 96 06/14/18 04:00 Room Air Room Air 06/14/18 03:00 110 28 117/69 (85) 96 06/14/18 02:00 104 28 118/66 (83) 97 06/14/18 01:00 107 31 117/66 (83) 97 06/14/18 00:00 Room Air Room Air 06/14/18 00:00 103 06/14/18 00:00 97.9 107 31 126/66 (86) 97 06/13/18 23:00 103 32 123/62 (82) 96 06/13/18 22:00 102 28 126/65 (85) 96 06/13/18 21:00 102 26 126/65 (85) 98 06/13/18 20:54 115 112/66 06/13/18 20:00 114 06/13/18 20:00 98.1 117 31 112/66 (81) 97 06/13/18 20:00 Room Air Room Air 06/13/18 19:00 117 29 106/76 (86) 99 06/13/18 18:00 102 22 165/76 (105) 100 06/13/18 17:00 97.9 104 21 125/68 (87) 100 06/13/18 16:00 106 30 117/60 (79) 99 06/13/18 16:00 106 06/13/18 16:00 Room Air Room Air Intake and Output 06/13/18 06/14/18 19:00 07:00 Intake Total 1055 ml 900 ml Output Total 1670 ml 1900 ml Balance -615 ml -1000 ml Intake Oral 230 ml 0 ml IV Total 825 ml 900 ml Output Urine Total 1670 ml 1900 ml Laboratory Tests Test 06/14/18 04:36 White Blood Count 12.5 K/UL (4.8-10.8) H Red Blood Count 3.30 M/UL (4.70-6.10) L Hemoglobin 9.6 G/DL (14.2-18.0) L Hematocrit 28.5 % (42.0-52.0) L Mean Corpuscular Volume 86 FL (80-99) Mean Corpuscular Hemoglobin 29.1 PG (27.0-31.0) Mean Corpuscular Hemoglobin Concent 33.8 G/DL (32.0-36.0) Red Cell Distribution Width 18.6 % (11.6-14.8) H Platelet Count 624 K/UL (150-450) H Mean Platelet Volume 4.7 FL (6.5-10.1) L Neutrophils (%) (Auto) 77.2 % (45.0-75.0) H Lymphocytes (%) (Auto) 12.8 % (20.0-45.0) L Monocytes (%) (Auto) 8.4 % (1.0-10.0) Eosinophils (%) (Auto) 0.7 % (0.0-3.0) Basophils (%) (Auto) 0.9 % (0.0-2.0) Sodium Level 132 MMOL/L (136-145) L Potassium Level 3.9 MMOL/L (3.5-5.1) Chloride Level 97 MMOL/L (98-107) L Carbon Dioxide Level 29 MMOL/L (21-32) Anion Gap 6 mmol/L (5-15) Blood Urea Nitrogen 9 mg/dL (7-18) Creatinine 0.8 MG/DL (0.55-1.30) Estimat Glomerular Filtration Rate mL/min (>60) Glucose Level 106 MG/DL (74-106) Calcium Level 11.2 MG/DL (8.5-10.1) H Objective HEAD AND NECK: Mild JVD. LUNGS: Decreased breath sounds. CARDIOVASCULAR: Regular S1, S2 with no gallop. ABDOMEN: Soft. SKIN: He has port in the right chest. EXTREMITIES: He had no pitting edema. Lake Joshi MD Jun 14, 2018 15:11
--- NOTE | 2018-06-14 15:57 | Cardiology Progress Note ---
Assessment/Plan Status: stable Assessment/Plan Assessment: (1) Episode of generalized weakness (2) Colitis (3) Bacteremia (4) Hypercalcemia (5) Diabetes (6) Lung Cancer (7) Supraventricular tachycardia Plan: Rate control with metoprolol 100 BID (hold for SBP <90) and digoxin 0.25 Monitor blood pressures, hold antihypertensive therapy IV fluids s/p EGD with hemostasis Transfused PRBC IV iron Replete electrolytes Outpatient stress test when stable Echo with preserved LV function, mild PAH, grade 2 diastolic dysfunction ok to discharge today Subjective Cardiovascular: Reports: no symptoms Respiratory: Reports: no symptoms Gastrointestinal/Abdominal: Reports: no symptoms Genitourinary: Reports: no symptoms Subjective No acute events, mental status baseline, tolerating PO, plan to d/c today heart rates better Objective Last 24 Hour Vital Signs Date Time Temp Pulse Resp B/P (MAP) Pulse Ox O2 Delivery O2 Flow Rate FiO2 06/14/18 12:00 Room Air Room Air 06/14/18 12:00 128 06/14/18 12:00 98.9 118 20 108/67 (81) 96 06/14/18 09:51 131 108/69 06/14/18 09:51 131 06/14/18 08:00 131 06/14/18 08:00 Room Air Room Air 06/14/18 08:00 97.3 128 20 108/69 (82) 97 06/14/18 07:49 98 Room Air 21 06/14/18 07:49 Room Air 21 06/14/18 07:13 98.0 06/14/18 06:00 121 28 117/70 (86) 98 06/14/18 05:00 110 28 117/70 (86) 96 06/14/18 04:00 118 06/14/18 04:00 98.0 114 24 118/74 (89) 96 06/14/18 04:00 Room Air Room Air 06/14/18 03:00 110 28 117/69 (85) 96 06/14/18 02:00 104 28 118/66 (83) 97 06/14/18 01:00 107 31 117/66 (83) 97 06/14/18 00:00 Room Air Room Air 06/14/18 00:00 103 06/14/18 00:00 97.9 107 31 126/66 (86) 97 06/13/18 23:00 103 32 123/62 (82) 96 06/13/18 22:00 102 28 126/65 (85) 96 06/13/18 21:00 102 26 126/65 (85) 98 06/13/18 20:54 115 112/66 06/13/18 20:00 114 06/13/18 20:00 98.1 117 31 112/66 (81) 97 06/13/18 20:00 Room Air Room Air 06/13/18 19:00 117 29 106/76 (86) 99 06/13/18 18:00 102 22 165/76 (105) 100 06/13/18 17:00 97.9 104 21 125/68 (87) 100 06/13/18 16:00 106 30 117/60 (79) 99 06/13/18 16:00 106 06/13/18 16:00 Room Air Room Air General Appearance: no apparent distress, alert EENT: PERRL/EOMI, normal ENT inspection, TMs normal Neck: non-tender, normal alignment, supple, normal inspection, no JVD Rhythm: ST Cardiovascular: normal peripheral pulses, normal rate, tachycardia Respiratory/Chest: chest wall non-tender, lungs clear, normal breath sounds Abdomen: normal bowel sounds, non tender, soft Extremities: normal range of motion, non-tender, normal inspection Neurologic: technical support director II-XII grossly normal, no motor/sensory deficits Intake and Output 06/13/18 06/14/18 19:00 07:00 Intake Total 1055 ml 900 ml Output Total 1670 ml 1900 ml Balance -615 ml -1000 ml Intake Oral 230 ml 0 ml IV Total 825 ml 900 ml Output Urine Total 1670 ml 1900 ml Laboratory Tests Test 06/14/18 04:36 White Blood Count 12.5 K/UL (4.8-10.8) H Red Blood Count 3.30 M/UL (4.70-6.10) L Hemoglobin 9.6 G/DL (14.2-18.0) L Hematocrit 28.5 % (42.0-52.0) L Mean Corpuscular Volume 86 FL (80-99) Mean Corpuscular Hemoglobin 29.1 PG (27.0-31.0) Mean Corpuscular Hemoglobin Concent 33.8 G/DL (32.0-36.0) Red Cell Distribution Width 18.6 % (11.6-14.8) H Platelet Count 624 K/UL (150-450) H Mean Platelet Volume 4.7 FL (6.5-10.1) L Neutrophils (%) (Auto) 77.2 % (45.0-75.0) H Lymphocytes (%) (Auto) 12.8 % (20.0-45.0) L Monocytes (%) (Auto) 8.4 % (1.0-10.0) Eosinophils (%) (Auto) 0.7 % (0.0-3.0) Basophils (%) (Auto) 0.9 % (0.0-2.0) Sodium Level 132 MMOL/L (136-145) L Potassium Level 3.9 MMOL/L (3.5-5.1) Chloride Level 97 MMOL/L (98-107) L Carbon Dioxide Level 29 MMOL/L (21-32) Anion Gap 6 mmol/L (5-15) Blood Urea Nitrogen 9 mg/dL (7-18) Creatinine 0.8 MG/DL (0.55-1.30) Estimat Glomerular Filtration Rate mL/min (>60) Glucose Level 106 MG/DL (74-106) Calcium Level 11.2 MG/DL (8.5-10.1) H Navjot Moya MD Jun 14, 2018 15:57
[2018-06-14] MEDS ORDERED: Heparin Sod 1000 units/ml 10ml INJ SCH (17:30)
[2018-06-14] MEDS ORDERED: Dyna-Hex 2% Top Sol 2oz TOPIC SCH (20:00)
[2018-06-14] MEDS ORDERED: Zolpidem 5mg tab ORAL PRN (21:00)
--- NOTE | 2018-06-15 09:37 | Discharge Summary ---
Discharge Summary Discharge Summary _ DATE OF ADMISSION: 06/04/2000 DATE OF DISCHARGE: 06/14/2018 REASON FOR ADMISSION: 77 years old male with past medical history of hypertension ,diabetes ,lung cancer ( currently under treatment) , presented with episode of generalized weakness, loose watery diarrhea and some abdominal discomfort. He denied fevers and chills . He denied recent antibiotic use. No chest pain or shortness of breath . Upon evaluation patient was tachycardic - 129 ; blood pressure -149/88. Laboratory workup revealed leukocytosis-14.4; stable hemoglobin and hematocrit ; calcium 11.3 . Lactic acid-2.0 Urinalysis with evidence of bacteria, but no pyuria . Chest x-ray revealed left upper lung mass. EKG revealed sinus tachycardia , no acute ischemic changes . Tachycardia improved with IV hydration . Patient started on empiric antibiotics and admitted with diagnoses of possible sepsis, colitis, ,history of lung cancer ,generalized weakness, hypercalcemia. CONSULTANTS: cardiac staple laster Dr. Joshi slasher operator Dr. Moya ID specialist Dr. Gilbert Cardona GI specialist Dr. Baum tile erector Dr. Pretty [facility] COURSE: Patient admitted to monitored floor. Patient started on IV fluids and empiric antibiotic. Serum calcium was closely monitored . Hypercalcemia was managed as per tile erector. Hypercalcemia was likely due to malignancy. Infectious disease specialist followed. Stool culture was negative. Urine culture revealed mixed urogenital contaminants. Blood culture revealed Staphylococcus coag negative, likely contaminant. Patient with persistent leukocytosis and intermittent fevers. Patient was on broad spectrum antibiotics. Fevers resolved, leukocytosis trending down, ID specialist recommended to keep patient off antibiotics and observe clsoely.. Sanitizer closely followed. Patient had evidence of nonsustained ventricular tachycardia and recurrent supraventricular tachycardia , despite adenosine of 6 and 12 mg. Echocardiogram revealed ejection fraction of 50-55% . Evidence of mild pulmonary hypertension with right ventricular systolic pressure of 41 and grade 2 diastolic dysfunction. Per staple laster, patient was not in condition to undergo electrophysiology study at this time. Heart rate was controlled with beta suzan, and patient was digitalized. Digoxin level therapeutic, Sanitizer recommended outpatient stress test when stable. GI specialist closely followed. CT of abdomen revealed fecal impaction and dilatation of colon. Severe L1 vertebral fracture , probably old . Right base lung fibrosis. Patient required transfusion of 2 units of packed red blood cell for hemoglobin 6.2 and hematocrit 20.1. Stool for occult blood was positive. Prior to discharge hemoglobin 9.6 hematocrit 28.5. Patient undergone EGD with epinephrine injection and BiCAP cautery. EGD revealed evidence of large gastric ulcer. Patient was kept nothing by mouth for 1 day , then started on PPI twice a day and Carafate . Diet was resumed and advanced as tolerated. Biopsy results still pending. Sorbitol trial initiated. Oriental Rug Repairer recommendations implemented in plan of care. Pain management was addressed and controlled. Insulation Sprayer followed. Electrolytes and renal parameters were closely monitored, electrolytes replaced as needed. Nephrotoxins were avoided. Patient was clinically stabilized. Overall prognosis poor. Patient was clear for discharge by all consultants and subsequently was discharged home. FINAL DIAGNOSES: Probable sepsis Colitis -resolved Severe anemia, requiring blood transfusion GI bleeding Large gastric ulcer Status post upper endoscopy with cauterization Fecal impaction with diarrhea Abdominal pain ,secondary to ulcer and fecal impaction -resolved History of lung cancer , on chemotherapy Nonsustained ventricular tachycardia Recurrent supraventricular tachycardia Hypercalcemia, likely related to malignancy Malnutrition Mild pulmonary hypertension Grade 2 diastolic dysfunction Nonobstructive urolithiasis L1 compression fracture DISCHARGE MEDICATIONS: See Medication Reconciliation list. DISCHARGE INSTRUCTIONS: Patient was discharged home. Follow up with primary care provider in one week. Follow up with lung cancer treatment I have been assigned to dictate discharge summary for this account. I was not involved in the patient's management. Idalmis Garcia NP Jun 15, 2018 09:37
== END 2018-06-14 18:55 | disposition home or self-care (01) | DRG 871 ==
LOC: EDBD 13:43 → EMR 14:00 → EDBEDREQSVC 14:39 → EDBEDREQ 14:39 → 2E 15:00 → EDBEDREQ 16:11 → 2E 18:04 → ICU 06-08 09:45 → 2E 06-14 06:13
PROC: 3E0G8GC Introduction of Other Therapeutic Substance into Upper GI, Via Natural or Artificial Opening Endoscopic (ICD-10-PCS; principal; 2018-06-09 12:10)
PROC: 0D578ZZ Destruction of Stomach, Pylorus, Via Natural or Artificial Opening Endoscopic (ICD-10-PCS; principal; 2018-06-09 12:10)
DX: A41.9 Sepsis, unspecified organism (principal); K25.0 Acute gastric ulcer with hemorrhage; E43 Unspecified severe protein-calorie malnutrition; N39.0 Urinary tract infection, site not specified; C34.92 Malignant neoplasm of unspecified part of left bronchus or lung; I47.1 Supraventricular tachycardia; I47.2 Ventricular tachycardia; Z68.1 Body mass index [BMI] 19.9 or less, adult; E86.0 Dehydration; K52.9 Noninfective gastroenteritis and colitis, unspecified; E11.9 Type 2 diabetes mellitus without complications; I10 Essential (primary) hypertension; E83.52 Hypercalcemia; J44.9 Chronic obstructive pulmonary disease, unspecified; K56.41 Fecal impaction; E87.6 Hypokalemia; I27.20 Pulmonary hypertension, unspecified
CPT/HCPCS: 36415; 71045; 74177; 80048; 80053; 80162; 81003; 82270; 82550; 82553; 82962; 83605; 83690; 83880; 84132; 84484; 85007; 85025; 86850; 86900; 86901; 86920; 87040; 87045; 87086; 87181; 87324; 93005; 93306; 94003; 94150; 94760; 96361; 96365; 96375; 99285; J0171; J2370; J2405; J2765; J8499